=== PATIENT | female | born 1980 | race Caucasian/White ===

== ENCOUNTER 2016-09-05 14:54 | Emergency (ER) | payer OTHER ==
[~2016-09-05] VITALS: Ht 167.6 cm; Wt 62.0 kg
[~2016-09-05 14:54] MED LIST: ALBU1AER9 INH; ASCO10003 PO; CALC600T9 PO; ESCI10TA17 PO; GLUC10007 PO; MISCCAP80 PO; MLXESC PO; MULT-506 PO; SUMA100T16 PO; SYN50 PO
[2016-09-05 14:58] VITALS: Ht 167.6 cm; Wt 62.0 kg
[2016-09-05] MEDS ORDERED: MoRPHine SULFATE 10 MG/ML CARP/VIAL IV STA (15:19)
[2016-09-05] MEDS ORDERED: ONDANSETRON INJ 2 MG/ML 2 ML VIAL IV STA (15:19)
[2016-09-05] MEDS ORDERED: SODIUM CHLORIDE 0.9% 1000ML 1,000 ML IV STA (15:19)
[2016-09-05 15:58] LABS: BASO % 0.3 %; BASO ABS # 0.02 K/uL (0-0.2); COMPLETE YES; EOS % 7.9 %; HEMATOCRIT 38.6 % (37-47); IG% 0.2 %; LYMPH % 28.5 %; LYMPH ABS # 1.81 K/uL (1.2-3.4); MEAN CELL VOLUME 86.2 fL (80-100); MEAN CORPUSCULAR HEMOGLOBIN 30.4 pg (25-34); MEAN CORPUSCULAR HGB CONC 35.2 g/dl (32-36); MEAN PLATELET VOLUME 10.9 fL (7.4-10.4); MONO % 10.8 %; NEUT % 52.3 %; PLATELET COUNT 212 K/uL (130-400); RED BLOOD COUNT 4.48 M/uL (4.2-5.4); WHITE BLOOD COUNT 6.36 K/uL (4.8-10.8)
--- NOTE | 2016-09-05 16:07 | DIAGNOSTIC IMAGING REPORT ---
ABDOMEN AND PELVIS CT WITHOUT CONTRAST CT DOSE: 297.71 mGy.cm HISTORY: Flank pain r flank pain. Previous total his, tej, appy TECHNIQUE: Multiaxial CT images of the abdomen and pelvis were performed without contrast. COMPARISON STUDY: 10/01/2015 FINDINGS: Lung bases are clear. Operative findings of prior cholecystectomy as well as appendectomy. Slight pancreatic fullness. Correlation with pancreatic enzymes status is suggested. 3 mm nonobstructing calcification central left kidney. Bladder is midline. There is no significant free fluid within the cul-de-sac. There is a moderate amount of fecal material throughout colon. Bowel pattern is considered nonobstructive. IMPRESSION: 1. Operative findings consistent with prior appendectomy and cholecystectomy. 2. Nonobstructing 3 mm mid pole left renal calcification. 3. Nonobstructive bowel pattern. 4. Slight fullness of the pancreas. This may simply be artifactual due to the unenhanced nature the examination, although correlation with pancreatic enzyme status is recommended to exclude any possibility of a low-grade pancreatitis Electronically signed by: Ganesh Chua M.D. 09/05/2016 4:05 PM
[2016-09-05 16:18] LABS: ALT/SGPT 23 U/L (12-78); BLOOD UREA NITROGEN 16 mg/dl (7-18); BUN/CREATININE RATIO 14.5 (10-20); CALCIUM 9.3 mg/dl (8.5-10.1); CARBON DIOXIDE 25 mmol/L (21-32); CHLORIDE 107 mmol/L (98-107); GLUCOSE 108 mg/dl (70-99); SODIUM 143 mmol/L (136-145)
[2016-09-05 16:19] LABS: URINE APPEARANCE CLEAR (CLEAR); URINE BILIRUBIN NEG (NEG); URINE COLOR YELLOW; URINE EPITHELIAL CELL AUTO 0-5 /lpf (0-5); URINE NITRITE NEG (NEG); URINE SPECIFIC GRAVITY 1.002 (1.000-1.030); UROBILINOGEN NEG (NEG); ZZUR CULT IF INDIC CLEAN CATCH NO
[2016-09-05 16:21] LABS: ALKALINE PHOSPHATASE 74 U/L (45-117); AST/SGOT 26 U/L (15-37)
[2016-09-05] MEDS ORDERED: ADVIN50/60 INH (16:24)
[2016-09-05 16:25] LABS: MANUAL MICROSCOPIC REQUIRED? NO; REVIEW REQ? NO
[2016-09-05] MEDS ORDERED: POTASSIUM CHLORIDE 10 MEQ TABCR PO STA (17:09)
[2016-09-05] MEDS ORDERED: OXYC1TAB3 PO (17:12)
[2016-09-05 17:34] VITALS: BP 93/62; PULSE 82; TEMP 36.6; O2SAT 95
--- NOTE | 2016-09-05 19:00 | EMERGENCY ROOM VISIT NOTE ---
History Report prepared by Alesia: Adele Ingram Under the Supervision of: Dr. Huey Daniels D.O. First contact with patient: 15:12 Chief Complaint: FLANK PAIN Stated Complaint: RIGHT SIDE PAIN History of Present Illness The patient is a 35 year old female who presents to the Emergency Room with complaints of constant right lateral abdomen pain that started 30-45 minutes [employer]. The pain is worse with walking and putting her knees up. She denies pain or burning with urination and hematuria. Her last bowel movement was yesterday and she states that it was normal. She has a history of pancreatitis but states that the pain she is experiencing now is not similar to that pain. She saw her PCP recently and her pancreatic lab numbers were slightly elevated but repeat blood work a few days later showed they were just below the recommended limit. The patient has a history of complete hysterectomy, appendectomy, and cholecystectomy. She denies any other abdominal surgeries. The patient does not have any history of kidney stones. Source of History: patient Onset: 30-45 minutes [employer] Position: abdomen (right lateral) Timing: constant Modifying Factors (Worsening): other (walking, putting her knees up) Associated Symptoms: No urinary symptoms (pain or burning, hematuria) Review of Systems See HPI for pertinent positives & negatives. A total of 10 systems reviewed and were otherwise negative. Past Medical & Surgical Surgical Problems: (1) History of appendectomy (2) History of cholecystectomy (3) History of hysterectomy Social History Smoking Status: Never Smoker Alcohol Use: occasionally Drug Use: none Marital Status: Occupation Status: employed Current/Historical Medications Scheduled Escitalopram (Lexapro), 10 MG PO DAILY Fluticasone Prop/Salmeterol (Advair Diskus 500/50 60 Dose), 1 PUFF INH BID Levothyroxine Sodium (Synthroid), 50 MCG PO DAILY Scheduled PRN Albuterol (Proair Hfa), 2 PUFFS INH Q4H PRN for WHEEZING,SOB,PRIOR TO EXERCISE Oxycodone Immediate Rel Tab (Roxicodone Ir), 5 MG PO Q4H PRN for Severe Pain Sumatriptan Succinate (Imitrex), 100 MG PO UD PRN for Migraine Allergies Coded Allergies: Gluten (Unverified Allergy, Intermediate, food intolerance, 09/05/16) Hydromorphone (Verified Allergy, Intermediate, hallucinations, 09/05/16) Physical Exam Vital Signs Date Time Temp Pulse Resp B/P Pulse Ox O2 Delivery O2 Flow Rate FiO2 09/05/16 17:34 36.6 82 18 93/62 95 09/05/16 16:00 84 18 93/62 94 Room Air 09/05/16 14:58 36.6 113 20 110/69 100 Room Air Physical Exam GENERAL: alert, uncomfortable appearing, shaking and holding right side, well nourished, no distress, non-toxic EYE EXAM: normal conjunctiva OROPHARYNX: no exudate, no erythema, lips, buccal mucosa, and tongue normal and mucous membranes are moist NECK: supple, no nuchal rigidity, no adenopathy, non-tender LUNGS: Clear to auscultation. Normal chest wall mechanics HEART: no murmurs, S1 normal and S2 normal ABDOMEN: abdomen soft, reproducible tenderness to right flank, normo-active bowel sounds, no masses, no rebound or guarding. BACK: Back is symmetrical on inspection and there is no deformity, no midline tenderness, no CVA tenderness. SKIN: no rashes and no bruising UPPER EXTREMITIES: upper extremities are grossly normal. LOWER EXTREMITIES: No pitting edema. NEURO EXAM: Normal sensorium, cranial nerves II-XII grossly intact, normal speech, no gross weakness of arms, no gross weakness of legs. Medical Decision & Procedures ER Provider Diagnostic Interpretation: CT results have been interpreted by the radiologist and reviewed by me. ABDOMEN AND PELVIS CT WITHOUT CONTRAST CT DOSE: 297.71 mGy.cm HISTORY: Flank pain r flank pain. Previous total his, tej, appy TECHNIQUE: Multiaxial CT images of the abdomen and pelvis were performed without contrast. COMPARISON STUDY: 10/01/2015 FINDINGS: Lung bases are clear. Operative findings of prior cholecystectomy as well as appendectomy. Slight pancreatic fullness. Correlation with pancreatic enzymes status is suggested. 3 mm nonobstructing calcification central left kidney. Bladder is midline. There is no significant free fluid within the cul-de-sac. There is a moderate amount of fecal material throughout colon. Bowel pattern is considered nonobstructive. IMPRESSION: 1. Operative findings consistent with prior appendectomy and cholecystectomy. 2. Nonobstructing 3 mm mid pole left renal calcification. 3. Nonobstructive bowel pattern. 4. Slight fullness of the pancreas. This may simply be artifactual due to the unenhanced nature the examination, although correlation with pancreatic enzyme status is recommended to exclude any possibility of a low-grade pancreatitis Electronically signed by: Ganesh Chua M.D. 09/05/2016 4:05 PM Laboratory Results 09/05/16 15:35 Red Blood Count 4.48, Mean Corpuscular Volume 86.2, Mean Corpuscular Hemoglobin 30.4, Mean Corpuscular Hemoglobin Concent 35.2, Mean Platelet Volume 10.9, Neutrophils (%) (Auto) 52.3, Lymphocytes (%) (Auto) 28.5, Monocytes (%) (Auto) 10.8, Eosinophils (%) (Auto) 7.9, Basophils (%) (Auto) 0.3, Neutrophils # (Auto ) 3.33, Lymphocytes # (Auto) 1.81, Monocytes # (Auto) 0.69, Eosinophils # (Auto ) 0.50, Basophils # (Auto) 0.02 09/05/16 15:35 Test 09/05/16 15:35 White Blood Count 6.36 K/uL (4.8-10.8) Red Blood Count 4.48 M/uL (4.2-5.4) Hemoglobin 13.6 g/dL (12.0-16.0) Hematocrit 38.6 % (37-47) Mean Corpuscular Volume 86.2 fL (80-100) Mean Corpuscular Hemoglobin 30.4 pg (25-34) Mean Corpuscular Hemoglobin Concent 35.2 g/dl (32-36) Platelet Count 212 K/uL (130-400) Mean Platelet Volume 10.9 fL (7.4-10.4) Neutrophils (%) (Auto) 52.3 % Lymphocytes (%) (Auto) 28.5 % Monocytes (%) (Auto) 10.8 % Eosinophils (%) (Auto) 7.9 % Basophils (%) (Auto) 0.3 % Neutrophils # (Auto) 3.33 K/uL (1.4-6.5) Lymphocytes # (Auto) 1.81 K/uL (1.2-3.4) Monocytes # (Auto) 0.69 K/uL (0.11-0.59) Eosinophils # (Auto) 0.50 K/uL (0-0.5) Basophils # (Auto) 0.02 K/uL (0-0.2) RDW Standard Deviation 41.4 fL (36.4-46.3) RDW Coefficient of Variation 13.2 % (11.5-14.5) Immature Granulocyte % (Auto) 0.2 % Immature Granulocyte # (Auto) 0.01 K/uL (0.00-0.02) Urine Color YELLOW Urine Appearance CLEAR (CLEAR) Urine pH 6.0 (4.5-7.5) Urine Specific [place] 1.002 (1.000-1.030) Urine Protein NEG (NEG) Urine Glucose (UA) NEG (NEG) Urine Ketones NEG (NEG) Urine Occult Blood NEG (NEG) Urine Nitrite NEG (NEG) Urine Bilirubin NEG (NEG) Urine Urobilinogen NEG (NEG) Urine Leukocyte Esterase NEG (NEG) Urine WBC (Auto) 0 /hpf (0-5) Urine RBC (Auto) 0-4 /hpf (0-4) Urine Hyaline Casts (Auto) 0 /lpf (0-5) Urine Epithelial Cells (Auto) 0-5 /lpf (0-5) Urine Bacteria (Auto) NEG (NEG) Urine Test NEG (NEG) Anion Gap 11.0 mmol/L (3-11) Est Creatinine Clear Calc Drug Dose 66.1 ml/min Estimated GFR () 74.8 Estimated GFR (Non- 64.5 BUN/Creatinine Ratio 14.5 (10-20) Calcium Level 9.3 mg/dl (8.5-10.1) Total Bilirubin 0.3 mg/dl (0.2-1) Direct Bilirubin < 0.1 mg/dl (0-0.2) Aspartate Amino Transf (AST/SGOT) 26 U/L (15-37) Alanine Aminotransferase (ALT/SGPT) 23 U/L (12-78) Alkaline Phosphatase 74 U/L (45-117) Total Protein 7.5 gm/dl (6.4-8.2) Albumin 4.1 gm/dl (3.4-5.0) Lipase 325 U/L (73-393) Laboratory results per my review. Medications Administered Medications (Trade) Dose Ordered Sig/Waldo Route Start Time Stop Time Status Last Admin Dose Admin Morphine Sulfate (MoRPHine SULFATE INJ) 6 mg NOW STAT IV 09/05/16 15:19 09/05/16 15:20 DC 09/05/16 15:39 6 MG Ondansetron HCl 4 mg 4 mg NOW STAT IV 09/05/16 15:19 09/05/16 15:20 DC 09/05/16 15:39 4 MG Sodium Chloride (Nss 1000ml) 1,000 ml @ 999 mls/hr Q1H1M STAT IV 09/05/16 15:19 09/05/16 16:19 DC 09/05/16 15:39 999 MLS/HR Potassium Chloride (Klor-Con M10) 40 meq NOW STAT PO 09/05/16 17:09 09/05/16 17:10 DC 09/05/16 17:25 40 MEQ ED Course ED COURSE: Vital signs were reviewed and showed tachycardia The patients medical record was reviewed The above diagnostic studies were performed and reviewed. ED treatments and interventions as stated above. 1513: The patient was evaluated in room A6. A complete history and physical examination was performed. 1519: Ordered Sodium Chloride 1000 ml @ 999 mls/hr IV, Zofran 4 mg IV, Morphine Sulfate 6 mg IV 1552: I went to reassess the patient but she was at CT. 1658: Upon reevaluation, the patient is doing well.I discussed my findings with the patient and she understands and agrees with the treatment plan. Based on the patients age, coexisting illnesses, exam and lab findings the decision to treat as an outpatient was made. The patient remained stable while under my care. The patient appeared well at the time of discharge. 1709: Ordered Potassium Chloride 40 meq PO Medical Decision Differential diagnoses includes but is not limited to gastritis, peptic ulcer disease, GERD, gallbladder disease, pancreatitis, small bowel obstruction, acute coronary syndrome, pericarditis, ischemic bowel, irritable bowel disease, irritable bowel syndrome, appendicitis, diverticulitis, malignancy, hernia, urinary tract infection, torsion, /ectopic , perforation, trauma, infectious. Patient is a 35 old female who presents the ER for right flank pain. Severe stabbing pain associated with nausea. It is radiating into her right groin. Patient notes that came on suddenly about 30 minutes ago and has been very severe. On exam she does have reproducible tenderness. Previous cholecystectomy, appendectomy and complete hysterectomy. Normal bowel movement was yesterday. No urinary symptoms. She is no respiratory complaints or chest pain. Labs show no significant leukocytosis or anemia. BMP shows a mild hypokalemia at 3.0. LFTs along with bilirubin was unremarkable. UA was negative. was negative. CT noncontrast was performed as I favor this is likely a stone that was negative. This could have been a recently passed stone. It did show some fullness of the pancreas but a normal lipase. It would be atypical for the pain to be in the right flank. I question if this is muscle skeletal the pain is completely resolved. This does not involve the lungs as it is clearly the abdomen/flank and does not vary with respirations change with breathing. Patient was discharged and OxyIR instructed to follow up with her PCP tomorrow morning for any worsening of her symptoms. Uncertain at this time clear origin of the pain. Discussed with Pt concerning signs and symptoms to watch out for. Pt was instructed to follow up with their PCP and discussed with the patient their option to return to the ED at anytime for persistent or worsening symptoms. The appropriate anticipatory guidance and out- patient management, including indications for return to the emergency department , were explained at length to the patient and understood. Impression Primary Impression: Right flank pain Additional Impression: Hypokalemia Scribe Attestation The scribe's documentation has been prepared under my direction and personally reviewed by me in its entirety. I confirm that the note above accurately reflects all work, treatment, procedures, and medical decision making performed by me. Departure Information Dispostion Home / Self-Care Prescriptions Oxycodone Immediate Rel Tab (ROXICODONE IR) 5 Mg Tab 5 MG PO Q4H Y for Severe Pain, #20 TAB Prov: Huey Daniels, DO 09/05/16 Referrals Freedom Pérez M.D.([facility]) (PCP) Forms HOME CARE DOCUMENTATION FORM, IMPORTANT VISIT INFORMATION Patient Instructions A Signature Page, [facility] Additional Instructions Please follow up with your primary care doctor with in the next 24 hours. Any worsening of your symptoms, please return to the ED immediately. This includes fevers greater than 100.4, persistent nausea vomiting, passing out, worsening pain, or any other concerning signs or symptoms from your standpoint. You were given medications during this visit that will inhibit your ability to drive, operate machinery and work. Please do NOT drive, operate machinery or work for the next 12hrs. You were also given a prescription for a narcotic. While taking this medication you should also not drive, operate machinery and or work.
[2016-09-08] MEDS ORDERED: LCTL45 PO (17:39)
[2016-09-08] MEDS ORDERED: BNT10 PO (17:39)
[2016-09-08] MEDS ORDERED: ULT50X PO (17:39)
[2016-09-08] MEDS ORDERED: SENN8.6T7 PO (17:39)
[2016-09-08] MEDS ORDERED: AMOX1TAB43 PO (17:39)
[2016-09-08] MEDS ORDERED: METO-157 PO (17:39)
[2016-09-08] MEDS ORDERED: ONDA4TAB65 PO (17:53)
== END 2016-09-05 17:33 | disposition home or self-care (01) ==
LOC: C.EDB 14:56 → C.EDA 17:33
DX: R10.9 Unspecified abdominal pain (principal); E87.6 Hypokalemia; Z90.710 Acquired absence of both cervix and uterus; Z90.49 Acquired absence of other specified parts of digestive tract

== ENCOUNTER 2016-09-05 19:28 | Inpatient (IN) | payer OTHER ==
[~2016-09-05] VITALS: Ht 170.2 cm; Wt 64.5 kg
[~2016-09-05 19:28] MED LIST changes: +ADVIN50/60 INH; +OXYC1TAB3 PO
[2016-09-05] MEDS ORDERED: SODIUM CHLORIDE 0.9% 1000ML 1,000 ML IV STA (21:06)
[2016-09-05] MEDS ORDERED: MoRPHine SULFATE 4 MG/ML 1 ML CARP\\VIAL IV STA (21:06)
[2016-09-05] MEDS ORDERED: ONDANSETRON INJ 2 MG/ML 2 ML VIAL IV STA (21:06)
[2016-09-05] MEDS ORDERED: SODIUM CHLORIDE 0.9% 500ML 500 ML IV STA (21:06)
[2016-09-05 21:30] LABS: BASO % 0.3 %; BASO ABS # 0.02 K/uL (0-0.2); COMPLETE YES; EOS % 8.6 %; HEMATOCRIT 38.7 % (37-47); IG% 0.1 %; LYMPH ABS # 1.86 K/uL (1.2-3.4); MEAN CORPUSCULAR HEMOGLOBIN 29.9 pg (25-34); MEAN CORPUSCULAR HGB CONC 34.4 g/dl (32-36); MEAN PLATELET VOLUME 10.6 fL (7.4-10.4); MONO % 9.7 %; NEUT % 54.3 %; PLATELET COUNT 205 K/uL (130-400); RED BLOOD COUNT 4.45 M/uL (4.2-5.4); WHITE BLOOD COUNT 6.88 K/uL (4.8-10.8)
[2016-09-05] MEDS ORDERED: POTASSIUM CHLORIDE 10 MEQ / 100ML WTR IV STA (21:30)
--- NOTE | 2016-09-05 21:35 | EMERGENCY ROOM VISIT NOTE ---
History Report prepared by Alesia: Rachna Yeung Under the Supervision of: Dr. Marie Gonzales M.D. First contact with patient: 21:05 Chief Complaint: ABDOMINAL PAIN Stated Complaint: ABD PAIN, JUST HERE EARLIER History of Present Illness The patient is a 35 year old female who presents to the Emergency Room with complaints of intermittent abdominal pain beginning earlier today. She left work today because of severe abdominal pain and came to the ED for evaluation. She was feeling better after receiving pain medication and she was discharged home. She had a CT scan at that time. While she was at home she started to experience severe pain again that she rates as a 10/10. She became nauseated but denies any LOC. She has a history of pancreatitis and states that this feels like her previous pancreatitis attacks. The patient rates her current pain as a 4/10 in severity. She denies chance of and fever. She notes that she has had some upper respiratory symptoms for the past few days including shortness of breath with exertion. She has been using Advair and an albuterol inhaler. Source of History: patient Onset: earlier today Position: abdomen Symptom Intensity: 4/10 Timing: intermittent Modifying Factors (Worsening): exertion Modifying Factors (Relieving): narcotics Associated Symptoms: + SOB, + nausea, No LOC, No fevers Review of Systems See HPI for pertinent positives & negatives. A total of 10 systems reviewed and were otherwise negative. Past Medical & Surgical Medical Problems: (1) Calcific shoulder tendinitis (2) Cellulitis (3) Right shoulder pain Surgical Problems: (1) History of appendectomy (2) History of cholecystectomy (3) History of hysterectomy Family History No pertinent history stated. Social History Smoking Status: Never Smoker Alcohol Use: occasionally Drug Use: none Marital Status: Housing Status: lives with significant other Occupation Status: employed Current/Historical Medications Scheduled Escitalopram (Lexapro), 10 MG PO DAILY Fluticasone Prop/Salmeterol (Advair Diskus 500/50 60 Dose), 1 PUFF INH BID Levothyroxine Sodium (Synthroid), 50 MCG PO DAILY Scheduled PRN Albuterol (Proair Hfa), 2 PUFFS INH Q4H PRN for WHEEZING,SOB,PRIOR TO EXERCISE Oxycodone Immediate Rel Tab (Roxicodone Ir), 5 MG PO Q4H PRN for Severe Pain Sumatriptan Succinate (Imitrex), 100 MG PO UD PRN for Migraine Allergies Coded Allergies: Gluten (Unverified Allergy, Intermediate, food intolerance, 09/05/16) Hydromorphone (Verified Allergy, Intermediate, hallucinations, 09/05/16) Physical Exam Vital Signs Date Time Temp Pulse Resp B/P Pulse Ox O2 Delivery O2 Flow Rate FiO2 09/05/16 23:14 85 17 107/73 100 Room Air 09/05/16 22:10 73 09/05/16 21:27 75 20 103/71 99 Room Air 09/05/16 19:59 36.7 74 18 99/69 98 Room Air Physical Exam Vital signs reviewed. General: Well-appearing 35 year old female, in no significant distress. HEENT: No scleral icterus, PERRLA, neck supple. Atraumatic. Cardiovascular: Regular rate and rhythm, no extra sounds. Pulmonary: Clear to auscultation bilaterally, normal work of breathing. Abdomen: Soft, tender to palpation in the epigastric region, mild guarding, nondistended, positive bowel sounds. Musculoskeletal: Atraumatic, no peripheral edema. Neurologic: Patient awake alert and oriented x 3, full strength in all 4 extremities. Cranial nerves 2 through 12 grossly intact. Skin: Warm, dry, no rash Medical Decision & Procedures Laboratory Results Test 09/05/16 21:15 09/05/16 21:20 Immature Granulocyte % (Auto) 0.1 % White Blood Count 6.88 K/uL (4.8-10.8) Red Blood Count 4.45 M/uL (4.2-5.4) Hemoglobin 13.3 g/dL (12.0-16.0) Hematocrit 38.7 % (37-47) Mean Corpuscular Volume 87.0 fL (80-100) Mean Corpuscular Hemoglobin 29.9 pg (25-34) Mean Corpuscular Hemoglobin Concent 34.4 g/dl (32-36) Platelet Count 205 K/uL (130-400) Mean Platelet Volume 10.6 fL (7.4-10.4) Neutrophils (%) (Auto) 54.3 % Lymphocytes (%) (Auto) 27.0 % Monocytes (%) (Auto) 9.7 % Eosinophils (%) (Auto) 8.6 % Basophils (%) (Auto) 0.3 % Neutrophils # (Auto) 3.73 K/uL (1.4-6.5) Lymphocytes # (Auto) 1.86 K/uL (1.2-3.4) Monocytes # (Auto) 0.67 K/uL (0.11-0.59) Eosinophils # (Auto) 0.59 K/uL (0-0.5) Basophils # (Auto) 0.02 K/uL (0-0.2) Immature Granulocyte # (Auto) 0.01 K/uL (0.00-0.02) Prothrombin Time 10.9 SECONDS (9.0-12.0) Prothromb Time International Ratio 1.0 (0.9-1.1) Total Bilirubin 0.3 mg/dl (0.2-1) Direct Bilirubin 0.1 mg/dl (0-0.2) Aspartate Amino Transf (AST/SGOT) 32 U/L (15-37) Alanine Aminotransferase (ALT/SGPT) 27 U/L (12-78) Alkaline Phosphatase 71 U/L (45-117) Total Protein 7.3 gm/dl (6.4-8.2) Albumin 4.0 gm/dl (3.4-5.0) Urine Color YELLOW Urine Appearance CLEAR (CLEAR) Urine pH 5.0 (4.5-7.5) Urine Specific [place] 1.010 (1.000-1.030) Urine Protein NEG (NEG) Urine Glucose (UA) NEG (NEG) Urine Ketones NEG (NEG) Urine Occult Blood NEG (NEG) Urine Nitrite NEG (NEG) Urine Bilirubin NEG (NEG) Urine Urobilinogen NEG (NEG) Urine Leukocyte Esterase NEG (NEG) Laboratory results per my review. Medications Administered Medications (Trade) Dose Ordered Sig/Waldo Route Start Time Stop Time Status Last Admin Dose Admin Sodium Chloride 500 ml @ 999 mls/hr Q31M STAT IV 09/05/16 21:06 09/05/16 21:36 DC 09/05/16 21:25 999 MLS/HR Sodium Chloride (Nss 1000ml) 1,000 ml @ 125 mls/hr Q8H STAT IV 09/05/16 21:06 09/06/16 02:26 DC 09/05/16 21:24 125 MLS/HR Morphine Sulfate (MoRPHine SULFATE INJ) 4 mg NOW STAT IV 09/05/16 21:06 09/05/16 21:07 DC 09/05/16 21:24 4 MG Ondansetron HCl (Zofran Inj) 4 mg NOW STAT IV 09/05/16 21:06 09/05/16 21:07 DC 09/05/16 21:25 4 MG Potassium Chloride (Kcl 10 Meq / Wtr) 20 meq NOW STAT IV 09/05/16 21:30 09/05/16 21:31 DC 09/05/16 21:49 20 MEQ Morphine Sulfate (MoRPHine SULFATE INJ) 4 mg Q1H PRN IV 09/05/16 23:15 09/06/16 02:26 DC 09/05/16 23:16 4 MG ED Course 2113: Past medical records reviewed. The patient was evaluated in room B9. A complete history and physical examination was performed. 2105: Zofran 4 mg IV, Morphine sulfate 4 mg IV, NSS 1000 ml @ 125 mls/hr IV , NSS 500 ml @ 999 mls/hr IV 2129: Potassium Chloride 20 meq IV 2210: I spoke with Dr. Gaspar. We discussed the patients results and treatment plan. The patient will be evaluated by the [facility] for further management. 2214: I reassessed the patient at this time. She is resting comfortably. I discussed the results and treatment plan with the patient. I answered all pertaining questions that she had. She expressed understanding and verbalized agreement. Medical Decision Differential diagnosis: Etiologies such as appendicitis, diverticulitis, PUD, biliary pathology, UTI, pancreatitis, obstruction, mesenteric ischemia, aortic pathology, infections, inflammatory bowel disease, renal colic, as well as others were entertained. This pt was evaluated and appeared to be in no distress. IV access was obtained and lab work was drawn. PT was placed on the electronic device monitor. She was hydrated with NSS, given IV morphine for pain control. CT images were reviewed from earlier in the day. Lab work reveals an elevated lipase of 2400, significant increase from several hours ago. Case was d/w the hospitalist who will evaluate for further management. Consults Time Called: 2208 Consulting Physician: Dr. Gaspar Returned Call: [address] Gaspar. We discussed the patients results and treatment plan. The patient will be evaluated by the [facility] for further management. Impression Primary Impression: Pancreatitis Scribe Attestation The scribe's documentation has been prepared under my direction and personally reviewed by me in its entirety. I confirm that the note above accurately reflects all work, treatment, procedures, and medical decision making performed by me. Departure Information Dispostion Being Evaluated By Hospitalist Freedom Arellano M.D.([facility]) (PCP)
[2016-09-05 21:40] LABS: URINE APPEARANCE CLEAR (CLEAR); URINE BILIRUBIN NEG (NEG); URINE COLOR YELLOW; URINE NITRITE NEG (NEG); UROBILINOGEN NEG (NEG); ZZUR CULT IF INDIC CLEAN CATCH NO
[2016-09-05 21:42] LABS: MANUAL MICROSCOPIC REQUIRED? NO; REVIEW REQ? NO
[2016-09-05 21:59] LABS: BUN/CREATININE RATIO 12.8 (10-20); CALCIUM 8.5 mg/dl (8.5-10.1); CREATININE 0.99 mg/dl (0.60-1.20); MAGNESIUM 1.9 mg/dl (1.8-2.4); POTASSIUM 3.8 mmol/L (3.5-5.1)
[2016-09-05] MEDS ORDERED: MoRPHine SULFATE 4 MG/ML 1 ML CARP\\VIAL IV PRN (23:15)
[2016-09-05] MEDS ORDERED: ALBUTEROL HFA 8 GM INHALER INH PRN (23:30)
[2016-09-05] MEDS ORDERED: ONDANSETRON INJ 2 MG/ML 2 ML VIAL IV PRN (23:30)
--- NOTE | 2016-09-06 00:25 | History and Physical ---
History & Physical Date & Time of Service: Sep 06, 2016 at 00:17 Chief Complaint: Abd Pain, Just Here Earlier Primary Care Physician: Freedom Pérez M.D.(JANNA) History of Present Illness Source: patient, family, clinic records, hospital records This is a 35 year old female with PMH of ovarian cancer, in remission since 2013 , recurrent idiopathic pancreatitis, depression, celiac disease presents with epigastric tenderness - she presented to the ER twice today (09/05/16) - initially she had some right sided abdominal/flank tenderness and had a CT done showing some pancreas fullness. At that time, she had a normal level of lipase - she was sent home, but returned with worsening epigastric pain; found to have lipase of > 2000. She has had this in the past - uncomplicated idiopathic pancreatitis. Has had her gallbladder removed a few years prior. No recurrence of her ovarian cancer and she follows with oncology every 6 months. Currently pain in the epigastric region is similar to her previous pancreatitis episodes. No other issues to note. Past Medical/Surgical History Medical Problems: (1) Calcific shoulder tendinitis Status: Resolved (2) Cellulitis Status: Resolved (3) Right shoulder pain Status: Resolved Social History Smoking Status: Never Smoker Drug Use: none Marital Status: Housing status: lives with family Occupational Status: employed Immunizations History of Influenza Vaccine: No History of Tetanus Vaccine?: Unknown History of Pneumococcal: No History of Hepatitis B Vaccine: Unknown Allergies Coded Allergies: Gluten (Unverified Allergy, Intermediate, food intolerance, 09/05/16) Hydromorphone (Verified Allergy, Intermediate, hallucinations, 09/05/16) Home Medications Scheduled Escitalopram (Lexapro), 10 MG PO DAILY Fluticasone Prop/Salmeterol (Advair Diskus 500/50 60 Dose), 1 PUFF INH BID Levothyroxine Sodium (Synthroid), 50 MCG PO DAILY Scheduled PRN Albuterol (Proair Hfa), 2 PUFFS INH Q4H PRN for WHEEZING,SOB,PRIOR TO EXERCISE Oxycodone Immediate Rel Tab (Roxicodone Ir), 5 MG PO Q4H PRN for Severe Pain Sumatriptan Succinate (Imitrex), 100 MG PO UD PRN for Migraine Review of Systems Constitutional: No chills, No fever, No weakness Respiratory: No cough, No dyspnea on exertion, No shortness of breath, No sputum Cardiovascular: No chest pain, No edema, No palpitations Abdomen: + nausea, + pain, No GI bleeding, No constipation, No diarrhea, No vomiting Genitourinary - Female: No dysuria, No hematuria, No urinary frequency, No urinary incontinence, No urinary retention, No urinary urgency Neurologic: No numbness/tingling Psychiatric: + depression symptoms (controlled with medications) Endocrine: No fatigue Hematologic / Lymphatic: No abnormal bleeding/bruising Integumentary: No rash Allergic / Immunologic: No environmental allergies, No seasonal allergies Physical Exam Vital Signs Date Time Temp Pulse Resp B/P Pulse Ox O2 Delivery O2 Flow Rate FiO2 09/05/16 23:14 85 17 107/73 100 Room Air 09/05/16 22:10 73 09/05/16 21:27 75 20 103/71 99 Room Air 09/05/16 19:59 36.7 74 18 99/69 98 Room Air General Appearance: + mild distress (secondary to pain) Head: normocephalic, atraumatic Eyes: normal inspection ENT: hearing grossly normal Respiratory/Chest: lungs clear, normal breath sounds, no respiratory distress, no accessory muscle use Cardiovascular: regular rate, rhythm, no edema, no murmur Abdomen/GI: normal bowel sounds, soft, + tenderness (worse epigastric tenderness, though tenderness throughout exam), + pertinent finding ( nondistended) Extremities/Musculoskelatal: normal capillary refill, no pedal edema Neurologic/Psych: no motor/sensory deficits, alert, normal mood/affect Skin: normal color Lymphatic: no adenopathy Diagnostics Laboratory Results Results Past 24 Hours Test 09/05/16 21:15 09/05/16 21:20 Range/Units White Blood Count 6.88 4.8-10.8 K/uL Red Blood Count 4.45 4.2-5.4 M/uL Hemoglobin 13.3 12.0-16.0 g/dL Hematocrit 38.7 37-47 % Mean Corpuscular Volume 87.0 80-100 fL Mean Corpuscular Hemoglobin 29.9 25-34 pg Mean Corpuscular Hemoglobin Concent 34.4 32-36 g/dl Platelet Count 205 130-400 K/uL Mean Platelet Volume 10.6 7.4-10.4 fL Neutrophils (%) (Auto) 54.3 % Lymphocytes (%) (Auto) 27.0 % Monocytes (%) (Auto) 9.7 % Eosinophils (%) (Auto) 8.6 % Basophils (%) (Auto) 0.3 % Neutrophils # (Auto) 3.73 1.4-6.5 K/uL Lymphocytes # (Auto) 1.86 1.2-3.4 K/uL Monocytes # (Auto) 0.67 0.11-0.59 K/uL Eosinophils # (Auto) 0.59 0-0.5 K/uL Basophils # (Auto) 0.02 0-0.2 K/uL RDW Standard Deviation 42.7 36.4-46.3 fL RDW Coefficient of Variation 13.3 11.5-14.5 % Immature Granulocyte % (Auto) 0.1 % Immature Granulocyte # (Auto) 0.01 0.00-0.02 K/uL Sodium Level 143 136-145 mmol/L Potassium Level 3.8 3.5-5.1 mmol/L Chloride Level 109 98-107 mmol/L Carbon Dioxide Level 25 21-32 mmol/L Anion Gap 9.0 3-11 mmol/L Blood Urea Nitrogen 13 7-18 mg/dl Creatinine 0.99 0.60-1.20 mg/dl Est Creatinine Clear Calc Drug Dose 76.4 ml/min Estimated GFR () 85.0 Estimated GFR (Non- 73.3 BUN/Creatinine Ratio 12.8 10-20 Random Glucose 99 70-99 mg/dl Calcium Level 8.5 8.5-10.1 mg/dl Magnesium Level 1.9 1.8-2.4 mg/dl Total Bilirubin 0.3 0.2-1 mg/dl Direct Bilirubin 0.1 0-0.2 mg/dl Aspartate Amino Transf (AST/SGOT) 32 15-37 U/L Alanine Aminotransferase (ALT/SGPT) 27 12-78 U/L Alkaline Phosphatase 71 45-117 U/L Total Protein 7.3 6.4-8.2 gm/dl Albumin 4.0 3.4-5.0 gm/dl Lipase 2452 73-393 U/L Urine Color YELLOW Urine Appearance CLEAR CLEAR Urine pH 5.0 4.5-7.5 Urine Specific [place] 1.010 1.000-1.030 Urine Protein NEG NEG Urine Glucose (UA) NEG NEG Urine Ketones NEG NEG Urine Occult Blood NEG NEG Urine Nitrite NEG NEG Urine Bilirubin NEG NEG Urine Urobilinogen NEG NEG Urine Leukocyte Esterase NEG NEG Diagnostic Radiology ABDOMEN AND PELVIS CT WITHOUT CONTRAST CT DOSE: 297.71 mGy.cm HISTORY: Flank pain r flank pain. Previous total his, tej, appy TECHNIQUE: Multiaxial CT images of the abdomen and pelvis were performed without contrast. COMPARISON STUDY: 10/01/2015 FINDINGS: Lung bases are clear. Operative findings of prior cholecystectomy as well as appendectomy. Slight pancreatic fullness. Correlation with pancreatic enzymes status is suggested. 3 mm nonobstructing calcification central left kidney. Bladder is midline. There is no significant free fluid within the cul-de-sac. There is a moderate amount of fecal material throughout colon. Bowel pattern is considered nonobstructive. IMPRESSION: 1. Operative findings consistent with prior appendectomy and cholecystectomy. 2. Nonobstructing 3 mm mid pole left renal calcification. 3. Nonobstructive bowel pattern. 4. Slight fullness of the pancreas. This may simply be artifactual due to the unenhanced nature the examination, although correlation with pancreatic enzyme status is recommended to exclude any possibility of a low-grade pancreatitis Impression Assessment and Plan This is a 35 year old female with PMH of ovarian cancer, in remission since 2013 , recurrent idiopathic pancreatitis, depression, celiac disease presents with epigastric tenderness Acute Recurrent Idiopathic Pancreatitis -->patient has had these symptoms in the past -->lipase > 1999 -->abdominal CT earlier today showed fullness of the pancreas -->will keep NPO -->LR @ 200mL/hr -->morphine PRN -->monitor lipase and electrolytes -->GI consultation Hypothyroidism -->continue synthroid Depression -->controlled with medications; continue home medications DVT ppx -->lovenox FULL CODE d/c home when pain improves and tolerating PO intake VTE Prophylaxis VTE Risk Assessment Done? Y/N: Yes Risk Level: Moderate
[2016-09-06 00:35] VITALS: BP 93/59; PULSE 96; TEMP 36.7; O2SAT 96; Ht 170.2 cm; Wt 64.5 kg
[2016-09-06 01:15] VITALS: BP 93/59; PULSE 96; TEMP 36.7; O2SAT 96
[2016-09-06 02:48] LABS: PROTHROMBIN TIME (PATIENT) 10.9 SECONDS (9.0-12.0)
[2016-09-06] MEDS: LACTATED RINGER'S 1000ML 1,000 ML IV SCH ×5 (02:55→19:02)
[2016-09-06] MEDS ORDERED: NURSING VERBAL MED ORDER ONE ×3 (03:15→21:45)
[2016-09-06] MEDS ORDERED: INFLUENZA ADMINISTRATION CHARGE ONE (06:15)
[2016-09-06] MEDS ORDERED: INFLUENZA VIRUS QUAD VACCINE 0.5 ML SYR IM. ONE (06:15)
[2016-09-06] MEDS: LEVOTHYROXINE 50 MCG TAB PO SCH (06:17)
[2016-09-06] MEDS: ENOXAPARIN 40 MG/0.4 ML SYR SQ SCH (06:18)
[2016-09-06] MEDS: ACETAMINOPHEN 325 MG TAB PO PRN ×2 (06:23→14:05)
[2016-09-06 08:03] LABS: HEMATOCRIT 31.9 % (37-47); MEAN CELL VOLUME 88.4 fL (80-100); MEAN CORPUSCULAR HEMOGLOBIN 29.1 pg (25-34); MEAN CORPUSCULAR HGB CONC 32.9 g/dl (32-36); PLATELET COUNT 162 K/uL (130-400); RED BLOOD COUNT 3.61 M/uL (4.2-5.4); WHITE BLOOD COUNT 4.64 K/uL (4.8-10.8)
[2016-09-06 08:07] VITALS: BP 94/59; PULSE 63; TEMP 36.7; O2SAT 97
[2016-09-06 08:45] LABS: BUN/CREATININE RATIO 8.6 (10-20); CALCIUM 7.8 mg/dl (8.5-10.1); CREATININE 0.85 mg/dl (0.60-1.20); MAGNESIUM 1.8 mg/dl (1.8-2.4)
[2016-09-06] MEDS ORDERED: ESCITALOPRAM OXALATE 10 MG TAB PO SCH (09:00)
[2016-09-06] MEDS: FLUTICASONE/SALMETEROL (ADVAIR) 500/50 INH 14 PUFF INH SCH ×2 (09:08→20:47)
[2016-09-06] MEDS: MoRPHine SULFATE 2 MG/ML CARP IV PRN ×3 (09:08→20:52)
--- NOTE | 2016-09-06 09:17 | Gastrointestinal Consultation ---
Gastrointestinal Consultation Date of Consultation: Sep 06, 2016 Consulting Physician: Dr. Lai Reason for Consultation: acute pancreatitis History of Present Illness Patient is a 35 year old female with past medical history significant for ovarian cancer (remission 2013, total hysterectomy) depression, celiac disease, IBS and recurrent pancreatitis (s/p appendectomy and cholecystectomy in 2011). She presented to the ED yesterday with flank pain and epigastric discomfort. A thorough evaluation was completed in the ED and she was sent home with a normal lipase of 300. A few hours later, she reported 10/10 epigastric pain, nonradiating, sharp and constant and came back the the ED. At this time, her lipase was elevated to >2000 and she was admitted for treatment. She reports associated nausea. She denies any episodes of emesis. Today she states that she feels much better. He abdominal pain is moderately resolved. She denies SOB, chest pain, fever chills. She reports congestion and mild epigastric discomfort. She states she can feel pressure in her stomach. She has not taken any pain medication this morning except for Tylenol, which she requested for a PINON. CT abd on 09/05/16: Lung bases are clear. Operative findings of prior cholecystectomy as well as appendectomy. Slight pancreatic fullness. Correlation with pancreatic enzymes status is suggested. 3 mm nonobstructing calcification central left kidney. Bladder is midline. There is no significant free fluid within the cul-de -sac. There is a moderate amount of fecal material throughout colon. Bowel pattern is considered nonobstructive. Lipase 09/05/16 AM 325 Lipase 09/05/16 HS 2452 Lipase 09/06/16 AM 317 Colonoscopy/EGD in 2011 both unremarkable. Past Medical/Surgical History Medical Problems: (1) Pancreatitis Status: Acute (2) Right flank pain Status: Acute Social History Smoking Status: Never Smoker Alcohol Use: occasionally Drug Use: none Marital Status: Housing Status: lives with significant other Occupation Status: employed Allergies Coded Allergies: Gluten (Unverified Allergy, Intermediate, food intolerance, 09/05/16) Hydromorphone (Verified Allergy, Intermediate, hallucinations, 09/05/16) Current Medications Home Meds and Scripts Medications Dose Route/Sig Max Daily Dose Days Date Category Roxicodone Ir (Oxycodone HCl) 5 Mg Tab 5 Mg PO Q4H PRN 09/05/16 Rx Advair Diskus 500/50 60 Dose (Fluticasone Prop/Salmeterol) 1 Ea Aerp 1 Puff INH BID 09/05/16 Reported Proair Hfa (Albuterol) Aers 2 Puffs INH Q4H PRN 03/11/14 Reported Synthroid (Levothyroxine Sodium) 50 Mcg Tab 50 Mcg PO DAILY 03/11/14 Reported Lexapro (Escitalopram Oxalate) 10 Mg Tab 10 Mg PO DAILY 08/06/13 Reported Imitrex (Sumatriptan Succinate) 100 Mg Tab 100 Mg PO UD PRN 06/11/13 Reported Review of Systems Constitutional: No chills, No fever Respiratory: No cough, No shortness of breath Cardiac: No chest pain Abdomen: + pain, No GI bleeding, No constipation, No diarrhea, No nausea, No vomiting Skin: No rash Physical Exam Date Time Temp Pulse Resp B/P Pulse Ox O2 Delivery O2 Flow Rate FiO2 09/06/16 08:20 Room Air 09/06/16 08:07 36.7 63 16 94/59 97 Room Air 09/06/16 01:15 36.7 96 16 93/59 96 Room Air 09/06/16 00:35 Room Air 09/06/16 00:35 36.7 96 16 93/59 96 Room Air 09/05/16 23:14 85 17 107/73 100 Room Air 09/05/16 22:10 73 09/05/16 21:27 75 20 103/71 99 Room Air 09/05/16 19:59 36.7 74 18 99/69 98 Room Air General Appearance: no apparent distress Eyes: normal inspection, PERRL ENT: hearing grossly normal Neck: supple, no adenopathy Respiratory/Chest: lungs clear, normal breath sounds, no respiratory distress, no accessory muscle use Cardiovascular: regular rate, rhythm, no edema, no gallop, no JVD, no murmur Abdomen: normal bowel sounds, soft, no organomegaly, no pulsatile mass, + tenderness (mild epigastric tenderness with palpation, mild right lower quadrant tenderness) Neurologic/Psych: alert, normal mood/affect, oriented x 3 Skin: normal color, no jaundice, warm/dry Laboratory Results Last 24 Hours Test 09/05/16 21:15 09/05/16 21:20 09/06/16 07:38 White Blood Count 6.88 K/uL 4.64 K/uL Red Blood Count 4.45 M/uL 3.61 M/uL Hemoglobin 13.3 g/dL 10.5 g/dL Hematocrit 38.7 % 31.9 % Mean Corpuscular Volume 87.0 fL 88.4 fL Mean Corpuscular Hemoglobin 29.9 pg 29.1 pg Mean Corpuscular Hemoglobin Concent 34.4 g/dl 32.9 g/dl Platelet Count 205 K/uL 162 K/uL Mean Platelet Volume 10.6 fL 11.0 fL Neutrophils (%) (Auto) 54.3 % Lymphocytes (%) (Auto) 27.0 % Monocytes (%) (Auto) 9.7 % Eosinophils (%) (Auto) 8.6 % Basophils (%) (Auto) 0.3 % Neutrophils # (Auto) 3.73 K/uL Lymphocytes # (Auto) 1.86 K/uL Monocytes # (Auto) 0.67 K/uL Eosinophils # (Auto) 0.59 K/uL Basophils # (Auto) 0.02 K/uL RDW Standard Deviation 42.7 fL 43.6 fL RDW Coefficient of Variation 13.3 % 13.4 % Immature Granulocyte % (Auto) 0.1 % Immature Granulocyte # (Auto) 0.01 K/uL Prothrombin Time 10.9 SECONDS Prothromb Time International Ratio 1.0 Sodium Level 143 mmol/L 144 mmol/L Potassium Level 3.8 mmol/L 4.0 mmol/L Chloride Level 109 mmol/L 113 mmol/L Carbon Dioxide Level 25 mmol/L 23 mmol/L Anion Gap 9.0 mmol/L 8.0 mmol/L Blood Urea Nitrogen 13 mg/dl 7 mg/dl Creatinine 0.99 mg/dl 0.85 mg/dl Est Creatinine Clear Calc Drug Dose 76.4 ml/min 89.0 ml/min Estimated GFR () 85.0 102.2 Estimated GFR (Non- 73.3 88.2 BUN/Creatinine Ratio 12.8 8.6 Random Glucose 99 mg/dl 86 mg/dl Calcium Level 8.5 mg/dl 7.8 mg/dl Magnesium Level 1.9 mg/dl 1.8 mg/dl Total Bilirubin 0.3 mg/dl Direct Bilirubin 0.1 mg/dl Aspartate Amino Transf (AST/SGOT) 32 U/L Alanine Aminotransferase (ALT/SGPT) 27 U/L Alkaline Phosphatase 71 U/L Total Protein 7.3 gm/dl Albumin 4.0 gm/dl Lipase 2452 U/L 317 U/L Urine Color YELLOW Urine Appearance CLEAR Urine pH 5.0 Urine Specific [place] 1.010 Urine Protein NEG Urine Glucose (UA) NEG Urine Ketones NEG Urine Occult Blood NEG Urine Nitrite NEG Urine Bilirubin NEG Urine Urobilinogen NEG Urine Leukocyte Esterase NEG Impression Patient is a [address] imaging suggesting mild pancreatitis, with an initial elevation of lipase >2000, highly suspicious of a recurrent episode of idiopathic pancreatitis. This is her second episode of pancreatitis since she had a cholecystectomy in 2011. Plan NPO until lunch LR 200 ml/hr Zofran PRN nausea Bentyl PRN for abd cramping for IBS CL for lunch Low fat - gluten free diet for dinner if clear liquids were tolerated Reglan 5mg IV TID for abdominal fullness GI will continue to follow. Will suggest appropriate advancement of diet. Attg addendum: I interviewed and examined pt, reviewed chart and labs. Pt with two prior episodes of pancreatitis (w/u = celiac serologies, FRANCISCO, IgG4, trigs, calcium, poor quality MRCP, s/p tej with fairly benign pathology); also h/o ovarian CA, admit with epigastric pain typical for pancreatitis and markedly elevated lipase with nl LFT's. No hemoconcentration, normal VS on presentation. Given fluids overnight. At present, she currently has persistent epigastric bloating after clear liquids, although she has not requested pain meds since the morning. + passing flatus. On exam, she looks comfortable; her mucous membranes are mildly dry. Abd is soft, ND, NT. labs reviewed - she has drop in hgb post admission. When questioned, she reports chronic mild epigastric bloating. Drinks 2 drinks/week. No new meds. A/P: Recurrent acute panc - Fluids x 24 hours, pain control as needed, diet as tolerated. Can be d/c'd once pain free and alla PO. - Etiology of panc unclear - reviwe of CT's in the past show borderline " sausage like" pancreas. Would consider repeating w/u AIP, celiac repeat imaging (MRCP and EUS), also fecal elastase and fecal fat to screen for chronic panc as outpt.
--- NOTE | 2016-09-06 11:08 | Progress Note ---
Medicine Progress Note Date & Time of Visit: Sep 06, 2016 at 11:03. Subjective patient seen resting in bed states her abdominal pain- epigastric, crampy- seemed to have recurred this AM, moderate- associated with mild nausea has mild dyspnea, no wheezing- being treated for "chest cold" with advair, prn albuterol- no cough no fever/chills has mild headache no other symptoms Objective Last 8 Hrs Date Time Temp Pulse Resp B/P Pulse Ox O2 Delivery O2 Flow Rate FiO2 09/06/16 08:20 Room Air 09/06/16 08:07 36.7 63 16 94/59 97 Room Air Physical Exam: General- oriented x 3, not in distress, speaks in sentences with no effort Head- atraumatic Eyes- EOMI, anicteric ENT- oropharynx clear Neck- supple, no JVD Lungs- clear to auscultation b/l, no rales/wheeze Heart- normal rate, regular rhythm; no murmurs Abdomen-non distended, normal bowel sounds, soft, mild epigastric tendernes Extremities- no pretibial edema, no calf tenderness; peripheral pulses intact Neuro- alert, oriented x 3; no gross focal motor/sensory deficits Skin- warm & dry Laboratory Results: Last 24 Hours Test 09/05/16 21:15 09/05/16 21:20 09/06/16 07:38 White Blood Count 6.88 K/uL 4.64 K/uL Red Blood Count 4.45 M/uL 3.61 M/uL Hemoglobin 13.3 g/dL 10.5 g/dL Hematocrit 38.7 % 31.9 % Mean Corpuscular Volume 87.0 fL 88.4 fL Mean Corpuscular Hemoglobin 29.9 pg 29.1 pg Mean Corpuscular Hemoglobin Concent 34.4 g/dl 32.9 g/dl Platelet Count 205 K/uL 162 K/uL Mean Platelet Volume 10.6 fL 11.0 fL Neutrophils (%) (Auto) 54.3 % Lymphocytes (%) (Auto) 27.0 % Monocytes (%) (Auto) 9.7 % Eosinophils (%) (Auto) 8.6 % Basophils (%) (Auto) 0.3 % Neutrophils # (Auto) 3.73 K/uL Lymphocytes # (Auto) 1.86 K/uL Monocytes # (Auto) 0.67 K/uL Eosinophils # (Auto) 0.59 K/uL Basophils # (Auto) 0.02 K/uL RDW Standard Deviation 42.7 fL 43.6 fL RDW Coefficient of Variation 13.3 % 13.4 % Immature Granulocyte % (Auto) 0.1 % Immature Granulocyte # (Auto) 0.01 K/uL Prothrombin Time 10.9 SECONDS Prothromb Time International Ratio 1.0 Sodium Level 143 mmol/L 144 mmol/L Potassium Level 3.8 mmol/L 4.0 mmol/L Chloride Level 109 mmol/L 113 mmol/L Carbon Dioxide Level 25 mmol/L 23 mmol/L Anion Gap 9.0 mmol/L 8.0 mmol/L Blood Urea Nitrogen 13 mg/dl 7 mg/dl Creatinine 0.99 mg/dl 0.85 mg/dl Est Creatinine Clear Calc Drug Dose 76.4 ml/min 89.0 ml/min Estimated GFR () 85.0 102.2 Estimated GFR (Non- 73.3 88.2 BUN/Creatinine Ratio 12.8 8.6 Random Glucose 99 mg/dl 86 mg/dl Calcium Level 8.5 mg/dl 7.8 mg/dl Magnesium Level 1.9 mg/dl 1.8 mg/dl Total Bilirubin 0.3 mg/dl Direct Bilirubin 0.1 mg/dl Aspartate Amino Transf (AST/SGOT) 32 U/L Alanine Aminotransferase (ALT/SGPT) 27 U/L Alkaline Phosphatase 71 U/L Total Protein 7.3 gm/dl Albumin 4.0 gm/dl Lipase 2452 U/L 317 U/L Urine Color YELLOW Urine Appearance CLEAR Urine pH 5.0 Urine Specific [place] 1.010 Urine Protein NEG Urine Glucose (UA) NEG Urine Ketones NEG Urine Occult Blood NEG Urine Nitrite NEG Urine Bilirubin NEG Urine Urobilinogen NEG Urine Leukocyte Esterase NEG Assessment & Plan 35 year old female with history of Pancreatitis, Celiac Disease, Ovarian CA s/p Chemo/Hysterectomy, Asthma, presenting with abdominal pain. Acute Recurrent Idiopathic Pancreatitis -->patient has had these symptoms in the past -->lipase > 1999 -->abdominal CT earlier today showed fullness of the pancreas -- no clear inciting factor -- lipase improved to 300s still has some abdominal pain -- continue LR at 200cc/hr clear liquids for lunch, advance as tolerated PRN Morphine Asthma - PRN albuterol continue Advair Hypothyroidism -->continue synthroid Depression -->controlled with medications; continue home medications DVT ppx -->lovenox FULL CODE d/c home when pain improves and tolerating PO intake Current Inpatient Medications: Current Inpatient Medications Medications (Trade) Dose Ordered Sig/Waldo Route Start Time Stop Time Status Last Admin Dose Admin Enoxaparin Sodium (Lovenox Inj) 40 mg Q24H SQ 09/06/16 06:00 10/06/16 05:59 09/06/16 06:18 40 MG Acetaminophen (Tylenol Tab) 650 mg Q4H PRN PO 09/05/16 23:30 10/05/16 23:29 09/06/16 06:23 650 MG Ondansetron HCl 4 mg 4 mg Q6H PRN IV 09/05/16 23:30 10/05/16 23:29 Lactated Ringer's (Lr 1000ml) 1,000 ml @ 200 mls/hr Q5H IV 09/05/16 23:30 10/05/16 23:29 09/06/16 09:09 200 MLS/HR Morphine Sulfate (MoRPHine SULFATE INJ) 2 mg Q4H PRN IV 09/05/16 23:30 09/19/16 23:29 09/06/16 09:08 2 MG Albuterol (Ventolin Hfa Inhaler) 2 puffs Q4H PRN INH 09/05/16 23:30 10/05/16 23:29 Salmeterol Xinafoate/ Fluticasone (Advair Diskus 500/50 Inh) 1 puff BID INH 09/06/16 09:00 10/06/16 08:59 09/06/16 09:08 1 PUFF Levothyroxine Sodium (Synthroid Tab) 50 mcg DAILYBB PO 09/06/16 06:00 10/06/16 05:59 09/06/16 06:17 50 MCG Escitalopram Oxalate (Lexapro Tab) 10 mg HS PO 09/06/16 21:00 10/06/16 20:59 Dicyclomine HCl (Bentyl Cap) 10 mg TID PRN PO 09/06/16 09:30 10/06/16 09:29
[2016-09-06 16:00] VITALS: BP 102/65; PULSE 66; TEMP 36.7; O2SAT 97
[2016-09-06] MEDS: METOCLOPRAMIDE HCL INJ 5 MG/ML 2 ML VIAL IV SCH (20:48)
[2016-09-06] MEDS: DICYCLOMINE HCL 10 MG CAP PO PRN (20:48)
[2016-09-06] MEDS: ESCITALOPRAM OXALATE 10 MG TAB PO SCH (20:49)
[2016-09-06 23:39] VITALS: BP 94/57; PULSE 71; TEMP 36.6; O2SAT 94
[2016-09-07] MEDS: LACTATED RINGER'S 1000ML 1,000 ML IV SCH ×3 (04:50→09:52)
[2016-09-07] MEDS: LEVOTHYROXINE 50 MCG TAB PO SCH (05:57)
[2016-09-07] MEDS: ENOXAPARIN 40 MG/0.4 ML SYR SQ SCH (05:57)
[2016-09-07] MEDS: ACETAMINOPHEN 325 MG TAB PO PRN (07:38)
[2016-09-07] MEDS: METOCLOPRAMIDE HCL INJ 5 MG/ML 2 ML VIAL IV SCH ×3 (07:39→21:38)
[2016-09-07] MEDS: FLUTICASONE/SALMETEROL (ADVAIR) 500/50 INH 14 PUFF INH SCH ×2 (07:39→21:38)
[2016-09-07 08:07] VITALS: BP 97/62; PULSE 62; TEMP 36.8; O2SAT 96
--- NOTE | 2016-09-07 08:31 | Gastroenterology Progress Note ---
Progress Note Date of Service: Sep 07, 2016 Subjective Pt evaluation today including: conversation w/ patient, physical exam, chart review Patient states that she feels ok. She denies any change in her pain in frequency or quality since yesterday. She states that she requested one dose of pain medication before bed last night for the epigastric discomfort. She denies any nausea, vomiting, black or bloody stools. She states that she has not had a BM since admission and would like a dose of miralax. She states that she ate some of her tray last night, their was mild discomfort but she requested to be served a low fat diet this AM again. Educated patient on bowel rest and told her to please let the nurse or myself know if she has any discomfort after eating breakfast this AM. She reports PINON, sinus pressure, congestion and chest tightness - hospitalist team please evaluate & treat if needed Review of Systems Constitutional: No chills, No fever Respiratory: + cough, No shortness of breath Cardiac: No chest pain Abdomen: + constipation, + pain, No diarrhea, No nausea, No vomiting Skin: No rash Medications Current Inpatient Medications Medications (Trade) Dose Ordered Sig/Waldo Route Start Time Stop Time Status Last Admin Dose Admin Enoxaparin Sodium (Lovenox Inj) 40 mg Q24H SQ 09/06/16 06:00 10/06/16 05:59 09/07/16 05:57 40 MG Acetaminophen (Tylenol Tab) 650 mg Q4H PRN PO 09/05/16 23:30 10/05/16 23:29 09/07/16 07:38 650 MG Ondansetron HCl 4 mg 4 mg Q6H PRN IV 09/05/16 23:30 10/05/16 23:29 09/06/16 16:02 4 MG Lactated Ringer's (Lr 1000ml) 1,000 ml @ 200 mls/hr Q5H IV 09/05/16 23:30 10/05/16 23:29 09/07/16 04:50 200 MLS/HR Morphine Sulfate (MoRPHine SULFATE INJ) 2 mg Q4H PRN IV 09/05/16 23:30 09/19/16 23:29 09/06/16 20:52 2 MG Albuterol (Ventolin Hfa Inhaler) 2 puffs Q4H PRN INH 09/05/16 23:30 10/05/16 23:29 09/06/16 11:17 2 PUFFS Salmeterol Xinafoate/ Fluticasone (Advair Diskus 500/50 Inh) 1 puff BID INH 09/06/16 09:00 10/06/16 08:59 09/07/16 07:39 1 PUFF Levothyroxine Sodium (Synthroid Tab) 50 mcg DAILYBB PO 09/06/16 06:00 10/06/16 05:59 09/07/16 05:57 50 MCG Escitalopram Oxalate (Lexapro Tab) 10 mg HS PO 09/06/16 21:00 10/06/16 20:59 09/06/16 20:49 10 MG Dicyclomine HCl (Bentyl Cap) 10 mg TID PRN PO 09/06/16 09:30 10/06/16 09:29 09/06/16 20:48 10 MG Metoclopramide HCl (Reglan Inj) 5 mg TID IV 09/06/16 21:00 10/06/16 20:59 09/07/16 07:39 5 MG Objective Vital Signs Date Time Temp Pulse Resp B/P Pulse Ox O2 Delivery O2 Flow Rate FiO2 09/07/16 08:07 36.8 62 18 97/62 96 Room Air 09/07/16 00:02 Room Air 09/06/16 23:39 36.6 71 16 94/57 94 Room Air 09/06/16 16:00 36.7 66 18 102/65 97 Room Air 09/06/16 15:30 Room Air 09/06/16 08:20 Room Air Physical Exam General Appearance: no apparent distress (patient is resting comfortably in bed watching TV) ENT: hearing grossly normal Neck: supple, trachea midline Respiratory/Chest: lungs clear, normal breath sounds, no respiratory distress, no accessory muscle use Cardiovascular: regular rate, rhythm, no edema, no gallop, no JVD, no murmur Abdomen: normal bowel sounds, soft, no organomegaly, no pulsatile mass, + tenderness (tenderness with palpation of epigastric region) Neurologic/Psych: alert, normal mood/affect, oriented x 3 Skin: normal color, no jaundice, warm/dry Laboratory Results Last 24 Hours Test 09/07/16 08:17 Assessment and Plan GI OK to start IV maintenance fluids advance to low fat, gluten free diet this AM encouraged ambulation encouraged PO fluid intake Zofran PRN nausea Bentyl PRN for abd cramping for IBS Reglan 5mg IV TID for abdominal fullness Outpatient workup to follow - AIP, celiac, MRCP, EUS, fecal elastase, fecal fat GI will continue to follow Attg addendum: I interviewed and examined pt, reviewed chart and labs. Pt with continued bloating, but return of hunger and no need for pain medication. Pancreatitis appears clinically resolved. If pt tolerates reg diet without difficulty, she is ok for discharge later today with outpt f/u.
[2016-09-07 10:06] LABS: HEMATOCRIT 34.5 % (37-47); MEAN CELL VOLUME 87.8 fL (80-100); MEAN PLATELET VOLUME 10.9 fL (7.4-10.4); PLATELET COUNT 165 K/uL (130-400); RED BLOOD COUNT 3.93 M/uL (4.2-5.4); WHITE BLOOD COUNT 4.95 K/uL (4.8-10.8)
[2016-09-07 10:41] LABS: BUN/CREATININE RATIO 6.2 (10-20); CALCIUM 8.8 mg/dl (8.5-10.1); CREATININE 1.1 mg/dl (0.60-1.20); POTASSIUM 3.5 mmol/L (3.5-5.1)
[2016-09-07 10:48] LABS: ALB/GLOB RATIO 1.1 (0.9-2)
[2016-09-07] MEDS: DICYCLOMINE HCL 10 MG CAP PO PRN (13:06)
[2016-09-07] MEDS ORDERED: COUGH DROP (SUGAR FREE) LOZ 24 LOZ/1 BOX PO PRN (14:45)
[2016-09-07 14:55] VITALS: BP 99/62; PULSE 65; TEMP 36.7; O2SAT 98
[2016-09-07] MEDS: AMOXICILLIN/CLAVULANATE TAB 875 MG TAB PO SCH (18:18)
[2016-09-07] MEDS ORDERED: TRAMADOL HCL 50 MG TAB PO PRN (19:00)
[2016-09-07] MEDS ORDERED: MAGNESIUM HYDROXIDE SUSP 30 ML UDC PO PRN (19:00)
[2016-09-07] MEDS ORDERED: TRAMADOL HCL 50 MG TAB ONE (19:12)
[2016-09-07] MEDS ORDERED: MAGNESIUM HYDROXIDE SUSP 30 ML UDC ONE (19:12)
[2016-09-07] MEDS ORDERED: BISACODYL 5 MG TABEC PO ONE (21:30)
[2016-09-07] MEDS ORDERED: DOCUSATE SODIUM 100 MG CAP PO ONE (21:30)
[2016-09-07] MEDS ORDERED: SENNA 8.6 MG TAB PO ONE (21:30)
[2016-09-07] MEDS: ESCITALOPRAM OXALATE 10 MG TAB PO SCH (21:38)
[2016-09-07 23:03] VITALS: BP 91/54; PULSE 72; TEMP 36.6; O2SAT 95
[2016-09-07 23:30] VITALS: O2SAT 95
--- NOTE | 2016-09-07 23:51 | Progress Note ---
Medicine Progress Note Date & Time of Visit: Sep 07, 2016 at 23:50. Subjective states she tolerated dinner but feels bloated, with right sided abdominal pain no BM x 3 days has frontal headache, sinus congestion with yellow thick mucus and sore throat no dyspnea no nausea denies other symptoms Objective Last 8 Hrs Date Time Temp Pulse Resp B/P Pulse Ox O2 Delivery O2 Flow Rate FiO2 09/07/16 16:00 Room Air Physical Exam: General- oriented x 3, not in distress, speaks in sentences with no effort Eyes- anicteric ENT- oropharynx clear, no tonsillar enlargement, exudate, erythema Neck- supple, no JVD, no adenopathy Lungs- clear to auscultation b/l, no rales/wheeze Heart- normal rate, regular rhythm; no murmurs Abdomen-non distended, normal bowel sounds, soft, mild epigastric tenderness Extremities- no pretibial edema, no calf tenderness Neuro- alert, oriented x 3; no gross focal motor/sensory deficits Skin- warm & dry Laboratory Results: Last 24 Hours Test 09/07/16 09:41 White Blood Count 4.95 K/uL Red Blood Count 3.93 M/uL Hemoglobin 11.4 g/dL Hematocrit 34.5 % Mean Corpuscular Volume 87.8 fL Mean Corpuscular Hemoglobin 29.0 pg Mean Corpuscular Hemoglobin Concent 33.0 g/dl RDW Standard Deviation 42.4 fL RDW Coefficient of Variation 13.1 % Platelet Count 165 K/uL Mean Platelet Volume 10.9 fL Sodium Level 144 mmol/L Potassium Level 3.5 mmol/L Chloride Level 108 mmol/L Carbon Dioxide Level 26 mmol/L Anion Gap 10.0 mmol/L Blood Urea Nitrogen 7 mg/dl Creatinine 1.10 mg/dl Est Creatinine Clear Calc Drug Dose 68.8 ml/min Estimated GFR () 74.8 Estimated GFR (Non- 64.5 BUN/Creatinine Ratio 6.2 Random Glucose 122 mg/dl Calcium Level 8.8 mg/dl Total Bilirubin 0.5 mg/dl Aspartate Amino Transf (AST/SGOT) 45 U/L Alanine Aminotransferase (ALT/SGPT) 39 U/L Alkaline Phosphatase 57 U/L Total Protein 5.9 gm/dl Albumin 3.1 gm/dl Globulin 2.8 gm/dl Albumin/Globulin Ratio 1.1 Assessment & Plan 35 year old female with history of Pancreatitis, Celiac Disease, Ovarian CA s/p Chemo/Hysterectomy, Asthma, presenting with abdominal pain. Acute Recurrent Idiopathic Pancreatitis -->patient has had these symptoms in the past -->lipase > 1999 -->abdominal CT earlier today showed fullness of the pancreas -- no clear inciting factor -- lipase improved to 300s (+) abdominal bloating and right sided pain--> likely from constipation will order laxatives -- LR discontinued diet advanced PRN Morphine, Tramadol -- appreciate GI service input Possible Sinusitis, Pharyngitis - Augmentin started Asthma stable - PRN albuterol continue Advair Hypothyroidism -->continue synthroid Depression -->controlled with medications; continue home medications DVT ppx -->lovenox FULL CODE d/c home when pain improves and tolerating PO intake, likely tomorrow Current Inpatient Medications: Current Inpatient Medications Medications (Trade) Dose Ordered Sig/Waldo Route Start Time Stop Time Status Last Admin Dose Admin Enoxaparin Sodium (Lovenox Inj) 40 mg Q24H SQ 09/06/16 06:00 10/06/16 05:59 09/07/16 05:57 40 MG Acetaminophen (Tylenol Tab) 650 mg Q4H PRN PO 09/05/16 23:30 10/05/16 23:29 09/07/16 07:38 650 MG Ondansetron HCl (Zofran Inj) 4 mg Q6H PRN IV 09/05/16 23:30 10/05/16 23:29 09/06/16 16:02 4 MG Morphine Sulfate (MoRPHine SULFATE INJ) 2 mg Q4H PRN IV 09/05/16 23:30 09/19/16 23:29 09/06/16 20:52 2 MG Albuterol (Ventolin Hfa Inhaler) 2 puffs Q4H PRN INH 09/05/16 23:30 10/05/16 23:29 09/06/16 11:17 2 PUFFS Salmeterol Xinafoate/ Fluticasone (Advair Diskus 500/50 Inh) 1 puff BID INH 09/06/16 09:00 10/06/16 08:59 09/07/16 21:38 1 PUFF Levothyroxine Sodium (Synthroid Tab) 50 mcg DAILYBB PO 09/06/16 06:00 10/06/16 05:59 09/07/16 05:57 50 MCG Escitalopram Oxalate (Lexapro Tab) 10 mg HS PO 09/06/16 21:00 10/06/16 20:59 09/07/16 21:38 10 MG Dicyclomine HCl (Bentyl Cap) 10 mg TID PRN PO 09/06/16 09:30 10/06/16 09:29 09/07/16 13:06 10 MG Metoclopramide HCl (Reglan Inj) 5 mg TID IV 09/06/16 21:00 10/06/16 20:59 09/07/16 13:05 5 MG Amoxicillin/ Clavulanate Potassium (Augmentin Tab) 875 mg BIDM PO 09/07/16 17:45 09/17/16 17:44 09/07/16 18:18 875 MG Menthol (Nice Marty) 1 marty Q4H PRN PO 09/07/16 14:45 10/07/16 14:44 Magnesium Hydroxide (Milk Of Magnesia Susp) 30 ml Q6H PRN PO 09/07/16 19:00 10/07/16 18:59 Tramadol HCl (Ultram Tab) 50 mg Q6H PRN PO 09/07/16 19:00 10/07/16 18:59
[2016-09-08] MEDS: LEVOTHYROXINE 50 MCG TAB PO SCH (06:02)
[2016-09-08] MEDS: ENOXAPARIN 40 MG/0.4 ML SYR SQ SCH (06:03)
[2016-09-08] MEDS: DICYCLOMINE HCL 10 MG CAP PO PRN (07:54)
[2016-09-08 07:58] VITALS: BP 98/67; PULSE 65; TEMP 36.8; O2SAT 98
[2016-09-08] MEDS: FLUTICASONE/SALMETEROL (ADVAIR) 500/50 INH 14 PUFF INH SCH (09:11)
[2016-09-08] MEDS: AMOXICILLIN/CLAVULANATE TAB 875 MG TAB PO SCH ×2 (09:11→17:42)
[2016-09-08] MEDS: METOCLOPRAMIDE HCL INJ 5 MG/ML 2 ML VIAL IV SCH ×2 (09:13→14:45)
[2016-09-08] MEDS: ACETAMINOPHEN 325 MG TAB PO PRN (12:11)
--- NOTE | 2016-09-08 12:22 | Progress Note ---
Medicine Progress Note Date & Time of Visit: Sep 08, 2016 at 12:19. Subjective states her sore throat is less still has some nasal congestion, discharge tolerated breakfast well no epigastric pain no BM yet, feels bloated Objective Last 8 Hrs Date Time Temp Pulse Resp B/P Pulse Ox O2 Delivery O2 Flow Rate FiO2 09/08/16 07:58 36.8 65 16 98/67 98 Room Air 09/08/16 07:51 Room Air Physical Exam: General- oriented x 3, not in distress, speaks in sentences with no effort Eyes- anicteric Neck- supple, no JVD Lungs- clear to auscultation b/l, no rales/wheeze Heart- normal rate, regular rhythm; no murmurs Abdomen-non distended, normal bowel sounds, soft, mild right sided tendernes Extremities- no pretibial edema, no calf tenderness Neuro- alert, oriented x 3; no gross focal motor/sensory deficits Skin- warm & dry Assessment & Plan 35 year old female with history of Pancreatitis, Celiac Disease, Ovarian CA s/p Chemo/Hysterectomy, Asthma, presenting with abdominal pain. Acute Recurrent Idiopathic Pancreatitis -->patient has had these symptoms in the past -->lipase > 1999 -->abdominal CT earlier today showed fullness of the pancreas -- no clear inciting factor -- lipase improved to 300s -- LR discontinued diet advanced PRN Morphine, Tramadol -- appreciate GI service input (+) abdominal bloating and right sided pain--> likely from constipation no BM yet Lactulose , Dulc Supp ordered Possible Sinusitis, Pharyngitis - Augmentin started improving Asthma - stable - PRN albuterol continue Advair Hypothyroidism -->continue synthroid Depression -->controlled with medications; continue home medications DVT ppx -->lovenox FULL CODE d/c home once with BM Current Inpatient Medications: Current Inpatient Medications Medications (Trade) Dose Ordered Sig/Waldo Route Start Time Stop Time Status Last Admin Dose Admin Enoxaparin Sodium (Lovenox Inj) 40 mg Q24H SQ 09/06/16 06:00 10/06/16 05:59 09/08/16 06:03 40 MG Acetaminophen (Tylenol Tab) 650 mg Q4H PRN PO 09/05/16 23:30 10/05/16 23:29 09/08/16 12:11 650 MG Ondansetron HCl (Zofran Inj) 4 mg Q6H PRN IV 09/05/16 23:30 10/05/16 23:29 09/06/16 16:02 4 MG Morphine Sulfate (MoRPHine SULFATE INJ) 2 mg Q4H PRN IV 09/05/16 23:30 09/19/16 23:29 09/06/16 20:52 2 MG Albuterol (Ventolin Hfa Inhaler) 2 puffs Q4H PRN INH 09/05/16 23:30 10/05/16 23:29 09/06/16 11:17 2 PUFFS Salmeterol Xinafoate/ Fluticasone (Advair Diskus 500/50 Inh) 1 puff BID INH 09/06/16 09:00 10/06/16 08:59 09/08/16 09:11 1 PUFF Levothyroxine Sodium (Synthroid Tab) 50 mcg DAILYBB PO 09/06/16 06:00 10/06/16 05:59 09/08/16 06:02 50 MCG Escitalopram Oxalate (Lexapro Tab) 10 mg HS PO 09/06/16 21:00 10/06/16 20:59 09/07/16 21:38 10 MG Dicyclomine HCl (Bentyl Cap) 10 mg TID PRN PO 09/06/16 09:30 10/06/16 09:29 09/08/16 07:54 10 MG Metoclopramide HCl (Reglan Inj) 5 mg TID IV 09/06/16 21:00 10/06/16 20:59 09/08/16 09:13 5 MG Amoxicillin/ Clavulanate Potassium (Augmentin Tab) 875 mg BIDM PO 09/07/16 17:45 09/17/16 17:44 09/08/16 09:11 875 MG Menthol (Nice Marty) 1 marty Q4H PRN PO 09/07/16 14:45 10/07/16 14:44 Magnesium Hydroxide (Milk Of Magnesia Susp) 30 ml Q6H PRN PO 09/07/16 19:00 10/07/16 18:59 09/08/16 06:02 30 ML Tramadol HCl (Ultram Tab) 50 mg Q6H PRN PO 09/07/16 19:00 10/07/16 18:59 09/08/16 07:55 50 MG
[2016-09-08] MEDS ORDERED: LACTULOSE SYRUP 20 GM/30 ML UDC PO PRN (12:30)
[2016-09-08] MEDS ORDERED: BISACODYL 10 MG SUPP PR PRN (12:30)
[2016-09-08] MEDS ORDERED: LACTULOSE SYRUP 30 GM/45 ML UDP PO PRN (12:45)
[2016-09-08] MEDS ORDERED: LACTULOSE SYRUP 30 GM/45 ML UDP PO ONE (12:45)
--- NOTE | 2016-09-08 13:06 | Gastroenterology Progress Note ---
Progress Note Date of Service: Sep 08, 2016 Subjective Pt evaluation today including: conversation w/ patient, physical exam, chart review Patient states that she feels well and would like to go home. She states that she tolerated dinner and breaktfast this AM without any pain. She is eating lunch right now. She tells me that her hospitalist had ordered lactulose to prompt a bowel movement as she has not had one in three days. She states her abdominal bloating is unresolved at the time. Review of Systems Constitutional: No chills, No fever Respiratory: No shortness of breath Cardiac: No chest pain Abdomen: + constipation (with associated bloating), No diarrhea, No nausea, No pain, No vomiting Medications Current Inpatient Medications Medications (Trade) Dose Ordered Sig/Waldo Route Start Time Stop Time Status Last Admin Dose Admin Enoxaparin Sodium (Lovenox Inj) 40 mg Q24H SQ 09/06/16 06:00 10/06/16 05:59 09/08/16 06:03 40 MG Acetaminophen (Tylenol Tab) 650 mg Q4H PRN PO 09/05/16 23:30 10/05/16 23:29 09/08/16 12:11 650 MG Ondansetron HCl (Zofran Inj) 4 mg Q6H PRN IV 09/05/16 23:30 10/05/16 23:29 09/06/16 16:02 4 MG Morphine Sulfate (MoRPHine SULFATE INJ) 2 mg Q4H PRN IV 09/05/16 23:30 09/19/16 23:29 09/06/16 20:52 2 MG Albuterol (Ventolin Hfa Inhaler) 2 puffs Q4H PRN INH 09/05/16 23:30 10/05/16 23:29 09/06/16 11:17 2 PUFFS Salmeterol Xinafoate/ Fluticasone (Advair Diskus 500/50 Inh) 1 puff BID INH 09/06/16 09:00 10/06/16 08:59 09/08/16 09:11 1 PUFF Levothyroxine Sodium (Synthroid Tab) 50 mcg DAILYBB PO 09/06/16 06:00 10/06/16 05:59 09/08/16 06:02 50 MCG Escitalopram Oxalate (Lexapro Tab) 10 mg HS PO 09/06/16 21:00 10/06/16 20:59 09/07/16 21:38 10 MG Dicyclomine HCl (Bentyl Cap) 10 mg TID PRN PO 09/06/16 09:30 10/06/16 09:29 09/08/16 07:54 10 MG Metoclopramide HCl (Reglan Inj) 5 mg TID IV 09/06/16 21:00 10/06/16 20:59 09/08/16 09:13 5 MG Amoxicillin/ Clavulanate Potassium (Augmentin Tab) 875 mg BIDM PO 09/07/16 17:45 09/17/16 17:44 09/08/16 09:11 875 MG Menthol (Nice Marty) 1 marty Q4H PRN PO 09/07/16 14:45 10/07/16 14:44 Magnesium Hydroxide (Milk Of Magnesia Susp) 30 ml Q6H PRN PO 09/07/16 19:00 10/07/16 18:59 09/08/16 06:02 30 ML Tramadol HCl (Ultram Tab) 50 mg Q6H PRN PO 09/07/16 19:00 10/07/16 18:59 09/08/16 07:55 50 MG Bisacodyl (Dulcolax Supp) 10 mg DAILY PRN KS 09/08/16 12:30 10/08/16 12:29 Lactulose (Chronulac Syrup) 30 gm TID PRN PO 09/08/16 12:45 10/08/16 12:44 Objective Vital Signs Date Time Temp Pulse Resp B/P Pulse Ox O2 Delivery O2 Flow Rate FiO2 09/08/16 07:58 36.8 65 16 98/67 98 Room Air 09/08/16 07:51 Room Air 09/07/16 23:30 95 Room Air 09/07/16 23:03 36.6 72 16 91/54 95 Room Air 09/07/16 16:00 Room Air 09/07/16 14:55 36.7 65 18 99/62 98 Room Air Physical Exam General Appearance: no apparent distress Eyes: PERRL ENT: hearing grossly normal Neck: supple, trachea midline Respiratory/Chest: chest non-tender, lungs clear, normal breath sounds, no respiratory distress, no accessory muscle use Cardiovascular: regular rate, rhythm, no edema, no gallop, no JVD, no murmur Abdomen: normal bowel sounds, non tender, soft, no organomegaly, no pulsatile mass Neurologic/Psych: alert, normal mood/affect, oriented x 3 Skin: normal color, no jaundice, warm/dry, no rash Assessment and Plan d/c reglan prior to discharge OK to discharge from GI standpoint Follow up with GI outpatient - AIP, celiac, MRCP, EUS, fecal elastase, fecal fat
[2016-09-08 15:42] VITALS: BP 98/67; PULSE 65; TEMP 36.8; O2SAT 98
[2016-09-08 16:10] VITALS: BP 97/63; PULSE 71; TEMP 36.6; O2SAT 97
[2016-09-08] MEDS ORDERED: METO-157 PO (17:39)
[2016-09-08] MEDS ORDERED: SENN8.6T7 PO (17:39)
[2016-09-08] MEDS ORDERED: LCTL45 PO (17:39)
[2016-09-08] MEDS ORDERED: ULT50X PO (17:39)
[2016-09-08] MEDS ORDERED: BNT10 PO (17:39)
[2016-09-08] MEDS ORDERED: AMOX1TAB43 PO (17:39)
--- NOTE | 2016-09-08 17:49 | Discharge Instructions ---
Discharge Instructions Admission Reason for Admission: Pancreatitis Discharge Discharge Diagnosis / Problem: Acute Pancreatitis Discharge Goals Goal(s): Diagnostic testing, Therapeutic intervention Activity Recommendations Activity Limitations: resume your previous activity Driving or Machine Use: Do not drive while taking Tramadol or other narcotics. . Instructions / Follow-Up Instructions / Follow-Up DRINK PLENTY OF FLUIDS. LOW FAT, SOFT DIET X 1 WEEK. CALL PRIMARY CARE PHYSICIAN OR RETURN TO ER IMMEDIATELY IF WITH RETURN OF SYMPTOMS. PLEASE FOLLOW UP WITH DR. MEDINA ON Sunday09/11/16 AT 11:10AM. FOLLOW UP WITH DR. RIDDLE- LOAN OPERATIONS SPECIALIST IN 2-3 WEEKS. TEL. NO. Current Hospital Diet Patient's current hospital diet: Gluten Free Diet, Low Fat Diet Discharge Diet Recommended Diet: Low Fiber Diet, Low Fat Diet, Gluten Free Diet Pending Studies Studies pending at discharge: no Medical Emergencies . Who to Call and When: Medical Emergencies: If at any time you feel your situation is an emergency, please call 911 immediately. . Non-Emergent Contact Non-Emergency issues call your: Primary Care Provider Call Non-Emergent contact if: you have a fever, your pain is not controlled, your pain is worsening, your pain is unusual for you . Past History Medical & Surgical History: (1) Pancreatitis (2) Cellulitis (3) Calcific shoulder tendinitis (4) Right shoulder pain (5) Calcific shoulder tendinitis (6) Acute pancreatitis (7) Flank pain (8) Hypokalemia (9) History of hysterectomy (10) History of cholecystectomy (11) History of appendectomy . "Provider Documentation" section prepared by Enrique Herrera. VTE Core Measure Inpt VTE Proph given/why not?: Enoxaparin (Lovenox)SQ
[2016-09-08] MEDS ORDERED: ONDA4TAB65 PO (17:53)
--- NOTE | 2016-09-08 18:03 | Discharge Summary ---
Discharge Summary Admission Date: Sep 05, 2016 at 23:24 Discharge Date: Sep 08, 2016 Discharge Disposition: Home Principal Diagnosis: Acute Recurrent Idiopathic Pancreatitis Secondary Diagnoses/Problems: Please refer to hospital course below. Consultations: GI- Dr. Riddle Pending Studies/Follow-Up: Please refer to hospital course below. Medication Reconciliation New Medications: Ondansetron Hcl (Zofran) 4 Mg Tab 4 MG PO Q6H PRN for nausea, #20 TAB 1 Refill Sennosides-Docusate Sodium (Senokot S) 1 Tab Tab 1 TAB PO DAILY for 7 Days, #7 TAB 1 Refill Amoxicillin & Pot Clavulanate (Amoxicillin/Clavulanate P) 1 Tab Tab 875 MG PO BIDM for 5 Days, #10 TAB 0 Refills Dicyclomine HCl (Dicyclomine HCl) 10 Mg Cap 10 MG PO TID PRN for abdominal cramping, #20 CAP 2 Refills Lactulose (Lactulose) 30 Gm/45 Ml Syrp 30 GM PO BID PRN for Constipation, #1 BTL 2 Refills Tramadol HCl (Tramadol HCl) 50 Mg Tab 50 MG PO Q6H PRN for Pain, #10 TAB 0 Refills Continued Medications: Albuterol (Proair Hfa) Aers 2 PUFFS INH Q4H PRN for WHEEZING,SOB,PRIOR TO EXERCISE Escitalopram (Lexapro) 10 Mg Tab 10 MG PO DAILY, TAB Fluticasone Prop/Salmeterol (Advair Diskus 500/50 60 Dose) 1 Ea Aerp 1 PUFF INH BID, INHALER Levothyroxine Sodium (Synthroid) 50 Mcg Tab 50 MCG PO DAILY Oxycodone Immediate Rel Tab (Roxicodone Ir) 5 Mg Tab 5 MG PO Q4H PRN for Severe Pain, #20 TAB Sumatriptan Succinate (Imitrex) 100 Mg Tab 100 MG PO UD PRN for Migraine, TAB Admission Information HPI (per Admitting provider): This is a 35 year old female with PMH of ovarian cancer, in remission since 2013 , recurrent idiopathic pancreatitis, depression, celiac disease presents with epigastric tenderness - she presented to the ER twice today (09/05/16) - initially she had some right sided abdominal/flank tenderness and had a CT done showing some pancreas fullness. At that time, she had a normal level of lipase - she was sent home, but returned with worsening epigastric pain; found to have lipase of > 2000. She has had this in the past - uncomplicated idiopathic pancreatitis. Has had her gallbladder removed a few years prior. No recurrence of her ovarian cancer and she follows with oncology every 6 months. Currently pain in the epigastric region is similar to her previous pancreatitis episodes. No other issues to note. Physical Exam (per Admitting): General Appearance: + mild distress (secondary to pain) Head: normocephalic, atraumatic Eyes: normal inspection ENT: hearing grossly normal Respiratory/Chest: lungs clear, normal breath sounds, no respiratory distress, no accessory muscle use Cardiovascular: regular rate, rhythm, no edema, no murmur Abdomen/GI: normal bowel sounds, soft, + tenderness (worse epigastric tenderness, though tenderness throughout exam), + pertinent finding ( nondistended) Extremities/Musculoskelatal: normal capillary refill, no pedal edema Neurologic/Psych: no motor/sensory deficits, alert, normal mood/affect Skin: normal color Lymphatic: no adenopathy Hospital Course 35 year old female with history of Pancreatitis, Celiac Disease, Ovarian CA s/p Chemo/Hysterectomy, Asthma, presenting with abdominal pain. Acute Recurrent Idiopathic Pancreatitis -->lipase > 2000 -->abdominal CT showed fullness of the pancreas -- no clear inciting factor- no gallstones, alcohol, etc. -- given vigorous IV fluids- Lactated Ringer's; given PRN Morphine, Tramadol -- lipase improved to 300s abdominal pain improved diet advanced -- evaluated by GI- Dr. Riddle cleared for discharge recommend outpatient follow up for: AIP, celiac, MRCP, EUS, fecal elastase, fecal fat Constipation (+) abdominal bloating and right sided pain--> likely from constipation given laxatives- did not respond to Dulcolax, Senna; had a BM with Lactulose Senokot S daily, PRN Lactulose on discharge Possible Sinusitis, Pharyngitis - Augmentin started improving - continue Augmentin 875mg BID x 5 more days Asthma - stable - PRN albuterol continue Advair Hypothyroidism -->continue synthroid Depression -->controlled with medications; continue home medications Disposition d/c home ff up with Dr. Medina on 09/11/16 ff up with GI in 2-3 weeks Total time spent on discharge = 35 minutes This includes examination of the patient, discharge planning, medication reconciliation, and communication with other providers. Discharge Instructions Discharge Instructions Admission Reason for Admission: Pancreatitis Discharge Discharge Diagnosis / Problem: Acute Pancreatitis Discharge Goals Goal(s): Diagnostic testing, Therapeutic intervention Activity Recommendations Activity Limitations: resume your previous activity Driving or Machine Use: Do not drive while taking Tramadol or other narcotics. . Instructions / Follow-Up Instructions / Follow-Up DRINK PLENTY OF FLUIDS. LOW FAT, SOFT DIET X 1 WEEK. CALL PRIMARY CARE PHYSICIAN OR RETURN TO ER IMMEDIATELY IF WITH RETURN OF SYMPTOMS. PLEASE FOLLOW UP WITH DR. MEDINA ON Sunday09/11/16 AT 11:10AM. FOLLOW UP WITH DR. RIDDLE- TECHNICAL DIRECTOR IN 2-3 WEEKS. TEL. NO. Current Hospital Diet Patient's current hospital diet: Gluten Free Diet, Low Fat Diet Discharge Diet Recommended Diet: Low Fiber Diet, Low Fat Diet, Gluten Free Diet Pending Studies Studies pending at discharge: no Medical Emergencies . Who to Call and When: Medical Emergencies: If at any time you feel your situation is an emergency, please call 911 immediately. . Non-Emergent Contact Non-Emergency issues call your: Primary Care Provider Call Non-Emergent contact if: you have a fever, your pain is not controlled, your pain is worsening, your pain is unusual for you . Past History Medical & Surgical History: (1) Pancreatitis (2) Cellulitis (3) Calcific shoulder tendinitis (4) Right shoulder pain (5) Calcific shoulder tendinitis (6) Acute pancreatitis (7) Flank pain (8) Hypokalemia (9) History of hysterectomy (10) History of cholecystectomy (11) History of appendectomy . "Provider Documentation" section prepared by Enrique Herrera. VTE Core Measure Inpt VTE Proph given/why not?: Enoxaparin (Lovenox)SQ
--- NOTE | 2016-09-08 18:08 | Progress Note ---
Progress Note attending addendum [employer] queried Enrique Stoll
== END 2016-09-08 18:15 | disposition home or self-care (01) | DRG 439 ==
LOC: ENRESERVDT → ENRESERVTM → C.EDB 19:30 → C.MSN 23:24
PROVIDERS: ADMIT Family Medicine; ATTEND Internal Medicine
DX: K85.90 Acute pancreatitis without necrosis or infection, unspecified (principal); C56.9 Malignant neoplasm of unspecified ovary; E03.9 Hypothyroidism, unspecified; F32.9 Major depressive disorder, single episode, unspecified; J45.909 Unspecified asthma, uncomplicated; J32.9 Chronic sinusitis, unspecified; J02.9 Acute pharyngitis, unspecified; K90.0 Celiac disease; K58.9 Irritable bowel syndrome, unspecified; Z23 Encounter for immunization; Z92.21 Personal history of antineoplastic chemotherapy; Z90.710 Acquired absence of both cervix and uterus; Z79.51 Long term (current) use of inhaled steroids; Z79.899 Other long term (current) drug therapy

== ENCOUNTER 2016-11-14 01:17 | Emergency (ER) | payer OTHER ==
[~2016-11-14] VITALS: Ht 170.2 cm; Wt 62.0 kg
[~2016-11-14 01:17] MED LIST changes: +AMOX1TAB43 PO; -ASCO10003 PO; +BNT10 PO; -CALC600T9 PO; -GLUC10007 PO; +LCTL45 PO; -MISCCAP80 PO; -MLXESC PO; -MULT-506 PO; +ONDA4TAB65 PO; +SENN8.6T7 PO; +ULT50X PO
[2016-11-14 01:21] VITALS: TEMP 36.6; Ht 170.2 cm; Wt 62.0 kg
[2016-11-14] MEDS ORDERED: ONDANSETRON INJ 2 MG/ML 2 ML VIAL IV STA ×2 (01:35→03:21)
[2016-11-14] MEDS ORDERED: SODIUM CHLORIDE 0.9% 1000ML 1,000 ML IV ONE (01:45)
[2016-11-14] MEDS: MoRPHine SULFATE 4 MG/ML 1 ML CARP\\VIAL IV PRN ×2 (01:46→03:28)
[2016-11-14] MEDS ORDERED: FLVHFA110 PO (01:52)
[2016-11-14] MEDS ORDERED: PANC6000 PO (01:53)
[2016-11-14] MEDS ORDERED: LEVO88TA3 PO (01:53)
[2016-11-14] MEDS ORDERED: PANC1CAP PO (01:53)
[2016-11-14 02:25] LABS: BASO % 0.3 %; BASO ABS # 0.02 K/uL (0-0.2); COMPLETE YES; EOS % 10.4 %; HEMATOCRIT 39.7 % (37-47); IG% 0.1 %; LYMPH % 31.9 %; LYMPH ABS # 2.23 K/uL (1.2-3.4); MEAN CELL VOLUME 87.4 fL (80-100); MEAN CORPUSCULAR HEMOGLOBIN 29.7 pg (25-34); MEAN PLATELET VOLUME 12.1 fL (7.4-10.4); MONO % 8.3 %; PLATELET COUNT 224 K/uL (130-400); RED BLOOD COUNT 4.54 M/uL (4.2-5.4)
[2016-11-14 02:25] LABS: URINE APPEARANCE CLEAR (CLEAR); URINE BILIRUBIN NEG (NEG); URINE COLOR YELLOW; URINE NITRITE NEG (NEG); URINE SPECIFIC GRAVITY 1.019 (1.000-1.030); UROBILINOGEN NEG (NEG); ZZUR CULT IF INDIC CLEAN CATCH NO
[2016-11-14 02:26] LABS: MANUAL MICROSCOPIC REQUIRED? NO; REVIEW REQ? YES
[2016-11-14 02:34] LABS: BUN/CREATININE RATIO 13.5 (10-20); CREATININE 1.2 mg/dl (0.60-1.20); POTASSIUM 3.4 mmol/L (3.5-5.1)
[2016-11-14 02:37] LABS: ALB/GLOB RATIO 1.2 (0.9-2)
[2016-11-14] MEDS ORDERED: OXYCODONE IR HOME PACK PO ONE (03:30)
[2016-11-14] MEDS ORDERED: ONDANSETRON HOME PACK 4MG OD TAB PO ONE (03:30)
[2016-11-14 03:40] VITALS: BP 96/69; PULSE 68; O2SAT 97
--- NOTE | 2016-11-14 03:51 | EMERGENCY ROOM VISIT NOTE ---
History First contact with patient: :28 Chief Complaint: ABDOMINAL PAIN Stated Complaint: PANCREATITIS ATTACK Nursing Triage Summary: c/o upper abdominal pain that began tonight around 0030 along with nausea. has hx of pancreatitis. History of Present Illness The patient is a 36 year old female who presents to the Emergency Room with complaints of epigastric abdominal pain that began about 1-2 hours ago. The patient has a long-standing history of pancreatitis and is in the process of being referred to [facility] for further evaluation. The patient states that her symptoms are identical to previous pancreatitis attacks. She is nauseated without vomiting. She does not have chest pain, chest tightness, shortness of breath, or lower abdominal pain. No fever or chills. She has not taken anything [id number] for her discomfort which she currently rates an 8/10. Review of Systems More than 10 systems were reviewed and otherwise negative with the exception of history of present illness. Past Medical/Surgical History Medical Problems: (1) Calcific shoulder tendinitis (2) Cellulitis (3) Right shoulder pain Surgical Problems: (1) History of appendectomy (2) History of cholecystectomy (3) History of hysterectomy Family History No pertinent family history Social History Smoking Status: Never Smoker Alcohol Use: occasionally Drug Use: none Marital Status: Housing Status: lives with significant other Occupation Status: employed Current/Historical Medications Scheduled Escitalopram (Lexapro), 10 MG PO DAILY Fluticasone Propionate (Flovent Hfa), 2 PUFFS PO BID Levothyroxine Sodium (Levothyroxine Sodium), 88 MCG PO DAILY Pancrelipase (Lipase-Protease- (Creon), 3,000 MG PO WITH SNACKS Pancrelipase (Lipase-Protease- (Creon), 6,000 MG PO TIDM Scheduled PRN Sumatriptan Succinate (Imitrex), 100 MG PO UD PRN for Migraine Allergies Coded Allergies: Gluten (Unverified Allergy, Intermediate, food intolerance, 11/14/16) Hydromorphone (Verified Allergy, Intermediate, hallucinations, 11/14/16) Physical Exam Vital Signs Date Time Temp Pulse Resp B/P Pulse Ox O2 Delivery O2 Flow Rate FiO2 11/14/16 03:40 68 18 96/69 97 11/14/16 02:56 78 20 95/63 96 Room Air 11/14/16 01:21 36.6 80 18 98/66 98 Room Air Pain Rating (0-10): 3.0 Physical Exam VITALS: Vitals are noted on the nurse's note and reviewed by myself. Vital signs stable. GENERAL: Well-developed, well-nourished, white female who appears in moderate discomfort secondary to her stated complaint. Patient is cooperative with the examination. HEAD: Normocephalic atraumatic. HEART: Regular rate and rhythm without murmurs gallops or rubs. LUNGS: Clear to auscultation bilaterally without wheezes, rales or rhonchi. No retractions or accessory muscle use. ABDOMEN: Positive normal bowel sounds x 4. Soft with palpable tenderness in the epigastrium. No lower abdominal tenderness. No CVA tenderness. No rebound or guarding. MUSCULOSKELETAL: No muscle atrophy, erythema, or edema noted. Full range of motion without joint tenderness in all extremities. Medical Decision & Procedures Laboratory Results 11/14/16 01:40 Red Blood Count 4.54, Mean Corpuscular Volume 87.4, Mean Corpuscular Hemoglobin 29.7, Mean Corpuscular Hemoglobin Concent 34.0, Mean Platelet Volume 12.1, Neutrophils (%) (Auto) 49.0, Lymphocytes (%) (Auto) 31.9, Monocytes (%) (Auto) 8.3, Eosinophils (%) (Auto) 10.4, Basophils (%) (Auto) 0.3, Neutrophils # (Auto ) 3.43, Lymphocytes # (Auto) 2.23, Monocytes # (Auto) 0.58, Eosinophils # (Auto ) 0.73, Basophils # (Auto) 0.02 11/14/16 01:40 Test 11/14/16 01:40 11/14/16 01:45 White Blood Count 7.00 K/uL (4.8-10.8) Red Blood Count 4.54 M/uL (4.2-5.4) Hemoglobin 13.5 g/dL (12.0-16.0) Hematocrit 39.7 % (37-47) Mean Corpuscular Volume 87.4 fL (80-100) Mean Corpuscular Hemoglobin 29.7 pg (25-34) Mean Corpuscular Hemoglobin Concent 34.0 g/dl (32-36) Platelet Count 224 K/uL (130-400) Mean Platelet Volume 12.1 fL (7.4-10.4) Neutrophils (%) (Auto) 49.0 % Lymphocytes (%) (Auto) 31.9 % Monocytes (%) (Auto) 8.3 % Eosinophils (%) (Auto) 10.4 % Basophils (%) (Auto) 0.3 % Neutrophils # (Auto) 3.43 K/uL (1.4-6.5) Lymphocytes # (Auto) 2.23 K/uL (1.2-3.4) Monocytes # (Auto) 0.58 K/uL (0.11-0.59) Eosinophils # (Auto) 0.73 K/uL (0-0.5) Basophils # (Auto) 0.02 K/uL (0-0.2) RDW Standard Deviation 41.2 fL (36.4-46.3) RDW Coefficient of Variation 12.9 % (11.5-14.5) Immature Granulocyte % (Auto) 0.1 % Immature Granulocyte # (Auto) 0.01 K/uL (0.00-0.02) Anion Gap 8.0 mmol/L (3-11) Est Creatinine Clear Calc Drug Dose 62.4 ml/min Estimated GFR () 66.9 Estimated GFR (Non- 57.7 BUN/Creatinine Ratio 13.5 (10-20) Calcium Level 9.0 mg/dl (8.5-10.1) Total Bilirubin 0.2 mg/dl (0.2-1) Aspartate Amino Transf (AST/SGOT) 15 U/L (15-37) Alanine Aminotransferase (ALT/SGPT) 18 U/L (12-78) Alkaline Phosphatase 71 U/L (45-117) Total Protein 7.2 gm/dl (6.4-8.2) Albumin 3.9 gm/dl (3.4-5.0) Globulin 3.3 gm/dl (2.5-4.0) Albumin/Globulin Ratio 1.2 (0.9-2) Amylase Level 87 U/L (25-115) Lipase 383 U/L (73-393) Urine Color YELLOW Urine Appearance CLEAR (CLEAR) Urine pH 6.0 (4.5-7.5) Urine Specific [place] 1.019 (1.000-1.030) Urine Protein NEG (NEG) Urine Glucose (UA) NEG (NEG) Urine Ketones NEG (NEG) Urine Occult Blood NEG (NEG) Urine Nitrite NEG (NEG) Urine Bilirubin NEG (NEG) Urine Urobilinogen NEG (NEG) Urine Leukocyte Esterase TRACE (NEG) Urine WBC (Auto) 1-5 /hpf (0-5) Urine RBC (Auto) 0-4 /hpf (0-4) Urine Hyaline Casts (Auto) 1-5 /lpf (0-5) Urine Epithelial Cells (Auto) 5-10 /lpf (0-5) Urine Bacteria (Auto) NEG (NEG) Urine Crystals CALCIUM OXALATE (NONE Urine Test NEG (NEG) Medications Administered Medications (Trade) Dose Ordered Sig/Waldo Route Start Time Stop Time Status Last Admin Dose Admin Morphine Sulfate 4 mg 4 mg Q1H PRN IV 11/14/16 01:45 11/28/16 01:44 11/14/16 03:28 4 MG Sodium Chloride (Nss 1000ml) 1,000 ml @ 999 mls/hr Q1H1M ONCE IV 11/14/16 01:45 11/14/16 02:45 DC 11/14/16 01:45 999 MLS/HR Ondansetron HCl (Zofran Inj) 4 mg NOW STAT IV 11/14/16 01:35 11/14/16 01:36 DC 11/14/16 01:45 4 MG Ondansetron HCl (Zofran Inj) 4 mg NOW STAT IV 11/14/16 03:21 11/14/16 03:22 DC 11/14/16 03:28 4 MG Ondansetron HCl (ZOFRAN ODT 4MG Home Pack) 1 homepack UD ONCE PO 11/14/16 03:30 11/14/16 03:31 DC 11/14/16 03:30 1 HOMEPACK Oxycodone HCl (Roxicodone Immediate Rel 5MG Home Pack) 1 homepack UD ONCE PO 11/14/16 03:30 11/14/16 03:31 DC 11/14/16 03:30 1 HOMEPACK ED Course Physical exam and history were performed. Nursing notes and EMR were reviewed. Patient appears to have epigastric abdominal pain for the past one to 2 hours. On examination the patient appears in moderate discomfort and she is tender in the epigastrium. She does have a past history of pancreatitis, and her most recent CAT scan was about 2 months ago where she was admitted to this facility. I do not feel additional CT imaging is warranted at this time. IV access was established and labs were obtained. The patient was hydrated with normal saline and provided IV morphine and IV Zofran for comfort. The patient's blood work is as above and was reviewed. She does not have a significantly elevated white blood cell count, anemia, bandemia, or significant electrolyte imbalance. Amylase and lipase were nondiagnostic. Transaminases were within normal limits. Urine is without evidence of infection. On repeat examination the patient had significant improvement of her symptoms. She continued to have very mild epigastric abdominal pain. I discussed options of care with the patient. She has a normal amylase and lipase at this time, however based on her history and exam I did offer for her to stay in the hospital. Using shared decision making, the patient elected to be discharged home as she is feeling much improved. I will provide her a short course of Zofran and OxyIR to use at home. I thoroughly invited her back to the ER if she developed new, worsening, or concerning symptoms. I recommended a clear liquid diet today, and close follow-up with her PCP. The patient and her understand they're welcome to return any time and were pleased with this plan. The patient rated her discomfort a 3/10 at the time of her departure. The chart was completed utilizing [employer] Voice Recognition Software. Grammatical errors, random word insertions, pronoun errors, and incomplete sentences are an occasional consequence of this system due to software limitations, ambient noise, and hardware issues. Any formal questions or concerns about the content, text, or information contained within the body of this dictation should be directly addressed to the provider for clarification. . Medical Decision Differential diagnosis: Etiologies such as appendicitis, diverticulitis, PUD, biliary pathology, UTI, pancreatitis, obstruction, mesenteric ischemia, aortic pathology, infections, inflammatory bowel disease, renal colic, as well as others were entertained. Impression Primary Impression: Epigastric abdominal pain Departure Information Dispostion Home / Self-Care Condition GOOD Forms Call Back Authorization, HOME CARE DOCUMENTATION FORM, IMPORTANT VISIT INFORMATION Patient Instructions My [facility] Additional Instructions You were seen and evaluated today on an emergency basis only. This is not a substitute for, or an effort to provide, complete comprehensive medical care. It is not possible to recognize and treat all injuries or illnesses in a single emergency department visit. For this reason it is recommended that you followup with your primary care physician's office by telephone tomorrow to arrange a follow-up visit this week. For baseline pain relief you may alternate ibuprofen and acetaminophen every 4 hours for pain control. Take 600 mg ibuprofen (Advil) and then 4 hours later take 1000 mg acetaminophen (Tylenol). Do not take more than 3000 mg acetaminophen in a single day. Oxycodone (OxyIR) 5mg: Take ONE pill every SIX hours for breakthrough pain. Avoid alcohol, operating machinery or dangerous equipment, working on ladders or roofs, DRIVING, or situations where being under the influence may be dangerous. It is recommended to use an [id number] stool softener such as Colace, 100mg twice daily while taking this medication to avoid constipation. Zofran 1 tablet every 6 hrs as needed for nausea. Practice a liquid diet for the next 24 hours then slowly advance your diet as tolerated. You are welcome to return to the emergency department anytime with new, worsening, or concerning symptoms.
== END 2016-11-14 03:42 | disposition hospice, home (50) ==
LOC: C.EDB 01:18 → C.EDA 03:42
DX: R10.13 Epigastric pain (principal); K86.1 Other chronic pancreatitis; Z86.19 Personal history of other infectious and parasitic diseases; Z90.710 Acquired absence of both cervix and uterus; Z90.49 Acquired absence of other specified parts of digestive tract; Z88.5 Allergy status to narcotic agent; Z91.09 Other allergy status, other than to drugs and biological substances

== ENCOUNTER → 2018-01-10 | Outpatient (CLI) | payer BC ==
[~2018-01-10] MED LIST changes: -ADVIN50/60 INH; -ALBU1AER9 INH; -AMOX1TAB43 PO; -BNT10 PO; +FLVHFA110 PO; -LCTL45 PO; +LEVO88TA3 PO; -ONDA4TAB65 PO; +OPTIRAY 320 IV PRN; -OXYC1TAB3 PO; +PANC1CAP PO; +PANC6000 PO; -SENN8.6T7 PO; -SYN50 PO; -ULT50X PO
--- NOTE | 2018-01-10 17:18 | DIAGNOSTIC IMAGING REPORT ---
ABD/PELVIS IV AND ORAL CONT CLINICAL HISTORY: 37 years-old Female presenting with HX OVARIAN CANCER, follow-up. TECHNIQUE: Multidetector CT of the abdomen and pelvis was performed after the administration of oral and intravenous contrast. IV contrast: 94 mL of Optiray 320. A dose lowering technique was used consistent with the principles of ALARA (as low as reasonably achievable). COMPARISON: 09/05/2016. CT DOSE (mGy.cm): The estimated cumulative dose is 467.76. FINDINGS: Residential Installer topogram: Cholecystectomy clips. Lung bases: Lungs and pleural spaces clear. Normal heart size. No pericardial or pleural effusion. Liver: Normal morphology. Perfusional variation or fatty infiltration along the fissure for the ligamentum teres. No liver lesion. Patent hepatic vasculature. Biliary: No intrahepatic or extrahepatic biliary ductal dilatation. Gallbladder surgically absent. Pancreas: Normal. Spleen: Normal. Adrenal glands: Normal. Kidneys and ureters: Punctate nonobstructing calculus in the interpolar region of the left kidney. Mild right pelviectasis. Ureters normal. Bladder: Normal. Pelvic organs: Uterus surgically absent. No adnexal masses. Bowel: Moderate stool burden in the rectum. Mild stool burden in the remainder of colon. Oral contrast has transited to the sigmoid colon. No bowel obstruction. Peritoneal cavity: No free fluid or intraperitoneal gas. Lymph nodes: No enlarged lymph nodes in the abdomen or pelvis. Vasculature: Aorta and IVC patent and normal in caliber. Abdominal wall: Postsurgical changes in the midline infraumbilical abdominal wall. Musculoskeletal: Normal. IMPRESSION: 1. Postsurgical changes of hysterectomy and oophorectomy. No lymphadenopathy or evidence of metastatic disease in the abdomen or pelvis. 2. No acute intra-abdominal pathology. 3. Moderate stool burden in the rectum. 4. Nonobstructing punctate left renal calculus. Electronically signed by: Hubert Granado M.D. 01/10/2018 5:16 PM Dictated Date/Time: 01/10/2018 5:09 PM
--- NOTE | 2018-01-10 17:25 | DIAGNOSTIC IMAGING REPORT ---
CHEST CT WITH CONTRAST CT DOSE: 467.76 mGy.cm HISTORY: Follow-up study in a patient with history of ovarian cancer . Subsequent treatment strategy. HX CANVER TECHNIQUE: Multiaxial CT images of the chest were performed following the intravenous administration of contrast. A dose lowering technique was utilized adhering to the principles of ALARA. COMPARISON: CT chest 10/01/2015, CT abdomen and pelvis of same day FINDINGS: Normal-appearing thyroid. No pathologic adenopathy. Minimal residual thymic tissue of the anterior mediastinum. The heart appears normal in size without pericardial effusion. Thoracic aorta is normal in course and caliber without aneurysm or dissection. The imaged great vessels appear patent. The opacified pulmonary arterial tree is unremarkable. No pneumothorax or pleural effusion. There are no suspicious pulmonary nodules or masses identified. The central airways are patent. Decreased attenuation of the liver suggests hepatic steatosis. Prior cholecystectomy. No acute process of the imaged upper abdomen. Nonobstructing calculi of the interpolar left kidney. Soft tissues and breast parenchyma appear unremarkable. The bones appear to be within normal limits without suspicious lytic or blastic bony lesions. No fracture. IMPRESSION: 1. No acute intrathoracic abnormality identified. 2. No evidence of pathologic adenopathy or pulmonary metastatic disease. Electronically signed by: Tony Castro M.D. 01/10/2018 5:24 PM Dictated Date/Time: 01/10/2018 5:18 PM
== END | disposition home or self-care (01) ==
LOC: C.CTS 16:01
PROVIDERS: ATTEND Obstetrics & Gynecology Gynecologic Oncology
DX: C56.9 Malignant neoplasm of unspecified ovary (principal); Z08 Encounter for follow-up examination after completed treatment for malignant neoplasm

== ENCOUNTER 2019-09-01 04:36 | Inpatient (IN) ==
[2019-09-01] MEDS ORDERED: SODIUM CHLORIDE 0.9% 1000ML 1,000 ML IV ONE (04:46)
[2019-09-01] MEDS ORDERED: METOCLOPRAMIDE HCL INJ 5 MG/ML 2 ML VIAL IV STA (04:46)
[2019-09-01] MEDS ORDERED: KETOROLAC TROMETHAMINE 15 MG/ML VIAL IV STA (04:46)
[2019-09-01] MEDS ORDERED: DiphenhydrAMINE HCL 50 MG/ML VIAL IV STA (04:46)
--- NOTE | 2019-09-01 05:00 | Emergency Department Note ---
History of Present Illness General Chief complaint: Abdominal Pain Stated complaint: ABD PAIN, PANCREATITIS History of Present Illness Maximum Pain Intensity: 8 This 38-year-old with history of pancreatitis presents to the ER complaining of epigastric pain which feels similar to her pancreatitis Location: Epigastric Quality: Painful Severity: Moderate Duration: Past hour Timing: Symptoms started an hour or 2 ago Context: Pain persisted and patient came in Modifying factors: better with nothing; worse with activity Patient had a glass of wine last night. Nothing excessive. She had a migraine and took her Imitrex which resolved the migraine. She woke up this morning with epigastric pain which felt similar to her pancreatitis. Patient had a cholecystectomy, hysterectomy and appendectomy. Patient denies chest pain, dyspnea, fevers, back pain, urinary symptoms. Home Medications Home Medications Medication Instructions Recorded Confirmed Type albuterol sulfate 2 puff INHALATION Q6H PRN 09/01/19 09/01/19 History bupropion HCl 150 mg PO BID 09/01/19 09/01/19 History ibuprofen 600 mg PO Q6H PRN 09/01/19 09/01/19 History levothyroxine 88 mcg PO DAILY 09/01/19 09/01/19 History sumatriptan succinate [Imitrex] 100 mg PO UD PRN 09/01/19 09/01/19 History Allergies Allergy/AdvReac Type Severity Reaction Status Date / Time gluten Allergy Intermediate food Unverified 09/01/19 04:51 intolerance hydromorphone Allergy Intermediate hallucinati Verified 09/01/19 04:51 ons Past Med/Surg History Social History Preferred Language: Polish Communication Ability: Effective Cooker Chip Required: No Beliefs That Will Affect Care: None Current Living Situation: Spouse and Family Current Living Situation Comment: Spouse, 3 children Feels Safe at Home: Yes Safety Concerns: Feels Safe At This Time Smoking Status: Never smoker Hx Alcohol Use: Yes Alcohol type: wine Hx Substance Use: No Review of Systems A total of 10 systems reviewed and were otherwise negative Physical Exam Vital Signs Vital Signs - 24 hr 09/01/19 04:42 09/01/19 06:25 Temperature 36.4 C L Temperature Source Oral Pulse Rate 89 Pulse Rate [Right Finger] 82 Respiratory Rate 20 16 Respiratory Effort / Characteristics Non-Labored Spontaneous Respiratory Depth Normal Normal Blood Pressure 105/75 Blood Pressure [Right Arm] 118/73 Blood Pressure Mean 85 Blood Pressure Mean [Right Arm] 88 Blood Pressure Position [Right Arm] Lying Pulse Oximetry 98 99 Oxygen Delivery Method Room Air Room Air Sepsis Recent Fever Within 48 Hours No Sepsis New/Unexplained Change in Mental Status No Sepsis Action Taken by Nursing No Action Required VITALS: Vitals are noted on the nurse's note and reviewed by myself. Vital signs stable. GENERAL: White female, in no acute distress, nondiaphoretic, well-developed well-nourished. SKIN: Capillary reflex less than 2 seconds. HEENT: Normocephalic. PERRLA. EOMI. Nares patent. Mucous membranes moist. Neck is supple without nuchal rigidity. HEART: Regular rate and rhythm without murmurs gallops or rubs. LUNGS: Clear to auscultation bilaterally without wheezes, rales or rhonchi. No retractions or accessory muscle use. ABDOMEN: Positive bowel sounds x 4. Normal tympanic percussion. Soft, tender to palpation epigastric region, without masses or organomegaly. Noel sign negative. No guarding or rebound tenderness. No CVA tenderness MUSCULOSKELETAL: No gross musculoskeletal defects. NEURO: Patient was alert and oriented to person place and time. Normal sensation to light and sharp touch. No focal neurological deficits. Course Administered Medications Bupropion HCl (Wellbutrin-Sr) 150 mg PO BID [facility] Stop: 10/01/19 08:59 Last Admin: 09/01/19 20:28 Dose: 150 mg Documented by: [id number] Admin: 09/01/19 09:23 Dose: 150 mg Documented by: [id number] Lactated Ringer's (Lr) 1,000 mls @ 150 mls/hr IV .Q6H40M [facility] Stop: 10/01/19 07:19 Last Admin: 09/01/19 20:29 Dose: 150 mls/hr Documented by: [id number] Infusion: 09/01/19 20:29 Dose: 150 mls/hr Documented by: [id number] Infusion: 09/01/19 19:25 Dose: 150 mls/hr Documented by: [id number] Admin: 09/01/19 16:06 Dose: 250 mls/hr Documented by: [id number] Infusion: 09/01/19 16:06 Dose: 250 mls/hr Documented by: [id number] Admin: 09/01/19 12:18 Dose: 250 mls/hr Documented by: [id number] Infusion: 09/01/19 12:18 Dose: 250 mls/hr Documented by: [id number] Infusion: 09/01/19 11:06 Dose: 250 mls/hr Documented by: [id number] Admin: 09/01/19 07:42 Dose: 200 mls/hr Documented by: [id number] Famotidine 20 mg/ Syringe 5 mls @ 2.5 mls/min IV BID [facility] Stop: 10/01/19 08:59 Last Admin: 09/01/19 20:30 Dose: 2.5 mls/min Documented by: [id number] Admin: 09/01/19 09:24 Dose: 2.5 mls/min Documented by: [id number] Ketorolac Tromethamine (Toradol) 15 mg IV Q6H PRN PRN Reason: Pain Stop: 09/06/19 10:59 Last Admin: 09/01/19 16:06 Dose: 15 mg Documented by: [id number] Levothyroxine Sodium (Synthroid) 88 mcg PO DAILYBB [facility] Stop: 10/01/19 07:44 Last Admin: 09/01/19 09:23 Dose: 88 mcg Documented by: [id number] Discontinued Medications Diphenhydramine HCl (Benadryl) 25 mg IV NOW STA Stop: 09/01/19 04:47 Last Admin: 09/01/19 05:13 Dose: 25 mg Documented by: [id number] Sodium Chloride (Nss 1000ml) 1,000 mls @ 999 mls/hr IV .Q1H1M ONE Stop: 09/01/19 05:46 Last Infusion: 09/01/19 06:26 Dose: 0 mls/hr Documented by: [id number] Admin: 09/01/19 05:13 Dose: 999 mls/hr Documented by: [id number] Ketorolac Tromethamine (Toradol) 10 mg IV NOW STA Stop: 09/01/19 04:47 Last Admin: 09/01/19 05:13 Dose: 10 mg Documented by: [id number] Metoclopramide HCl (Reglan) 10 mg IV NOW STA Stop: 09/01/19 04:47 Last Admin: 09/01/19 05:13 Dose: 10 mg Documented by: [id number] Medical Decision Making Medical Records Attestation: I reviewed the patient's medical records. Home Medications Current Medication List: was personally reviewed by me Laboratory Data Attestation: I reviewed the patient's lab results. Result diagrams: 09/01/19 05:00 09/01/19 05:00 Lab Results 09/01/19 09/01/19 09/01/19 Range/Units 05:00 05:00 05:00 WBC 5.15 (4.8-10.8) K/uL RBC 5.04 (4.2-5.4) M/uL Hgb 14.9 (12.0-16.0) g/dL Hct 43.5 (37-47) % MCV 86.3 (80-100) fL MCH 29.6 (25-34) pg MCHC 34.3 (32-36) g/dL RDW Std Deviation 40.4 (36.4-46.3) fL RDW Coeff of Mamie 12.8 (11.5-14.5) % Plt Count 264 (130-400) K/uL MPV 11.1 H (7.4-10.4) fL Immature Gran % (Auto) 0.2 % Neut % (Auto) 53.4 % Lymph % (Auto) 33.0 % [place] % (Auto) 7.8 % Eos % (Auto) 5.2 % Baso % (Auto) 0.4 % Immature Gran # (Auto) 0.01 (0.00-0.02) K/uL Neut # (Auto) 2.75 (1.4-6.5) K/uL Lymph # (Auto) 1.70 (1.2-3.4) K/uL [place] # (Auto) 0.40 (0.11-0.59) K/uL Eos # (Auto) 0.27 (0-0.5) K/uL Baso # (Auto) 0.02 (0-0.2) K/uL Sodium 139 (136-145) mmol/L Potassium 3.7 (3.5-5.1) mmol/L Chloride 105 (98-107) mmol/L Carbon Dioxide 28 (21-32) mmol/L Anion Gap 6.0 (3-11) BUN 14 (7-18) mg/dl Creatinine 1.06 (0.6-1.2) mg/dl Est Cr Clr Drug Dosing 69.0 ml/min Est GFR ( Amer) 76.6 Est GFR (Non-Af Amer) 66.1 BUN/Creatinine Ratio 13.1 (10-20) Glucose 95 (70-99) mg/dl Calcium 9.7 (8.5-10.1) mg/dl Total Bilirubin 0.5 (0.2-1) mg/dl AST 20 (15-37) U/L ALT 19 (12-78) U/L Alkaline Phosphatase 84 (45-117) U/L Total Protein 8.6 H (6.4-8.2) gm/dl Albumin 4.6 (3.4-5.0) gm/dl Globulin 4.0 (2.5-4.0) gm/dl Albumin/Globulin Ratio 1.2 (0.9-2) Lipase 1925 H (73-393) U/L Urine Color Yellow Urine Appearance Clear (Clear) Urine pH 6.0 (4.5-7.5) Ur Specific Snyder 1.006 (1.000-1.030) Urine Protein Negative (Negative) Urine Glucose (UA) Negative (Negative) Urine Ketones Negative (Negative) Urine Blood Negative (Negative) Urine Nitrite Negative (Negative) Urine Bilirubin Negative (Negative) Urine Urobilinogen Negative (Negative) Ur Leukocyte Esterase Trace H (Negative) Urine WBC (Auto) 1-5 (0-5) /hpf Urine RBC (Auto) 0-4 (0-4) /hpf U Hyaline Cast (Auto) 1-5 (0-5) /lpf U Epithel Cells (Auto) >30 H (0-5) /lpf Urine Bacteria (Auto) Negative (Negative) MDM Narrative Prior records/ancillary studies reviewed. Triage Nursing notes reviewed. Additional history obtained from family. The patient's history was concerning for abdominal pain. Differential diagnosis: Etiologies such as appendicitis, diverticulitis, PUD, biliary pathology, UTI, pancreatitis, obstruction, mesenteric ischemia, aortic pathology, infections, inflammatory bowel disease, renal colic, as well as others were entertained. Physical examination findings: As above. ER treatment provided: Toradol, Reglan, Benadryl, IV fluids On reassessment the patient felt better. Diagnostics interpreted by me: The labs revealed no leukocytosis, elevated lipase and patient has a history of recurrent pancreatitis Imaging studies: pt declined imaging Consultation: A consultation was placed with Dr Osborn. The case was discussed and diagnostics were reviewed. The patient was evaluated in the ER for further treatment. Exam and history seem consistent with pancreatitis. This is recurrent for the patient. Medicine was consulted. Patient was hydrated as above medicated as above. She felt somewhat better. Patient had no leukocytosis. She was afebrile and nontoxic. She had an elevated lipase. Patient declined CT imaging. I felt this is reasonable. This is recurrent for the patient. By the evaluation outlined above emergent etiologies such as appendicitis, diverticulitis, PUD, biliary pathology, UTI, pancreatitis, obstruction, mesenteric ischemia, aortic pathology, inflammatory bowel disease, renal colic, as well as others were deemed relatively unlikely. The pt informed about the findings as listed above. All questions were answered and pleased with the treatment. Case reviewed with my attending The chart was completed utilizing [employer] Speech voice recognition software. Grammatical errors, random word insertions, pronoun errors, and incomplete sentences are an occassional consequence of this system due to software limitations, ambient noise, and hardware issues. Any formal questions or concerns about the content, text, or information contained within the body of this dictation should be directly addressed to the physician family service assistant for clarification. Impression & Plan Pancreatitis Discharge Plan Visit Data *Final* Discharge Date/Time: 09/01/19 06:57 Chief Complaint: Abdominal Pain Stated Complaint: ABD PAIN, PANCREATITIS ED Provider: Marie Gonzales ED Midlevel Provider: Tali Mercado Discharge Problem: Pancreatitis Patient Disposition: Admitted As Inpatient Condition: Good Discharge Instructions Interventions: ED Discharge Assessment Last Done: 09/01/19 06:57
[2019-09-01 05:17] LABS: Basophils # (auto) 0.02 K/uL (0-0.2); Basophils % (auto) 0.4 %; Eosinophils # (auto) 0.27 K/uL (0-0.5); Eosinophils % (auto) 5.2 %; Hematocrit (blood only) 43.5 % (37-47); Hemoglobin 14.9 g/dL (12.0-16.0); Immature Granulocytes # (auto) 0.01 K/uL (0.00-0.02); Immature Granulocytes % (auto) 0.2 %; Mean Corpuscular Hemoglobin 29.6 pg (25-34); Mean Corpuscular Hgb Conc 34.3 g/dL (32-36); Mean Corpuscular Volume 86.3 fL (80-100); Mean Platelet Volume 11.1 fL (7.4-10.4); Monocytes % (auto) 7.8 %; Neutrophils # (auto) 2.75 K/uL (1.4-6.5); Neutrophils % (auto) 53.4 %; Platelet Count 264 K/uL (130-400); RDW Coefficient of Variation 12.8 % (11.5-14.5); RDW Standard Deviation 40.4 fL (36.4-46.3); Red Blood Count 5.04 M/uL (4.2-5.4); White Blood Count 5.15 K/uL (4.8-10.8)
[2019-09-01 05:22] LABS: Appearance Urine Clear (Clear); Bacteria Urine Automated Negative (Negative); Bilirubin Urine Negative (Negative); Blood Urine Negative (Negative); Color Urine Yellow; Epithelial Cell Urine Auto >30 /lpf (0-5); Glucose Urine UA Negative (Negative); Ketones Urine Negative (Negative); Leukocyte Esterase Urine Trace (Negative); Nitrite Urine Negative (Negative); Protein Urine Negative (Negative); RBC Urine Automated 0-4 /hpf (0-4); Specific Gravity Urine 1.006 (1.000-1.030); Urobilinogen Urine Negative (Negative)
[2019-09-01 05:36] LABS: Albumin Level 4.6 gm/dl (3.4-5.0); BUN Creatinine Ratio 13.1 (10-20); Calcium 9.7 mg/dl (8.5-10.1); Est GFR (African American) 76.6; Est GFR (Non-African American) 66.1; Potassium 3.7 mmol/L (3.5-5.1)
[2019-09-01 05:41] LABS: Albumin Globulin Ratio 1.2 (0.9-2); Bilirubin,Total 0.5 mg/dl (0.2-1); Total Protein 8.6 gm/dl (6.4-8.2)
[2019-09-01] MEDS ORDERED: SUMAtriptan succinate 100 MG TAB PO PRN (07:20)
[2019-09-01] MEDS ORDERED: ALBUTEROL HFA 8 GM INHALER INH PRN (07:20)
[2019-09-01] MEDS: LACTATED RINGER'S 1,000 ML IV SCH ×4 (07:42→20:29)
--- NOTE | 2019-09-01 09:20 | Gastrointestinal Consultation ---
Date of Consultation September 01, 2019 Assessment & Plan (1) Pancreatitis: Ms. Holder is a 38 yr old female with abdominal pain, mostly likely from acute pancreatitis as evidenced by lipase of 1925. 1. Her request to avoid CT is reasonable. 2. Because LFTs are normal, and she is post cholecystectomy, doubt any bile duct abnormalities. 3. LR at 250/hr. 4. OP EUS in 6-8 weeks. Present on Admission?: Yes History of Present Illness Reason for Consultation: Acute pancreatitis Requesting Physician: Dr. Osborn Attending Physician: Yulia Bullard, DO History of Present Illness Ms. Nova Holder is a 38 yr old female pt of Dr. Pérez with a hx of ovarian cancer, prior acute pancreatitis, S/P cholecystectomy. She presented to the ED early this morning for abdominal pain described as similar to prior episodes of pancreatitis. She requests that she does not undergo CT scanning due to cumulative radiation exposure with hx of ovarian cancer in 2012 and surveillance imaging after. Regarding risks for pancreatitis. She is S/P cholecystectomy. No hx of increased alcohol intake. Never a smoker. No clear etiology of prior episodes of pancreatitis. She drank a little wine last night but typically drinks one about 3 times/week. She also took one Imitrex, but has also used this intermittently for years. Only regular meds are Wellbutrin and Synthroid. On arrival: LFTs are normal, Lipase is elevated at 1925. Pt and her tell me that although her upper abdomen pain persists, her pain is improved compared to when she presented earlier today. She is resting quietly. A review of prior episodes of pancreatitis in 2013 showed mild prominence of the pancreatic tail. In [address] with IV contrast but lipase elevated at 2188. In 2016, no CT was completed and lipase was 2452. A [facility] in [facility], with Dr. Boogie. At that time, he deferred EUS and recommended referral to [facility] pancreas clinic. Allergies Allergy/AdvReac Type Severity Reaction Status Date / Time gluten Allergy Intermediate food Unverified 09/01/19 04:51 intolerance hydromorphone Allergy Intermediate hallucinati Verified 09/01/19 04:51 ons Home Medications Home Medications Medication Instructions Recorded Confirmed Type albuterol sulfate 2 puff INHALATION Q6H PRN 09/01/19 09/01/19 History bupropion HCl 150 mg PO BID 09/01/19 09/01/19 History ibuprofen 600 mg PO Q6H PRN 09/01/19 09/01/19 History levothyroxine 88 mcg PO DAILY 09/01/19 09/01/19 History sumatriptan succinate [Imitrex] 100 mg PO UD PRN 09/01/19 09/01/19 History Patient History Social History Preferred Language: Spanish Communication Ability: Effective Banking Officer Required: No Beliefs That Will Affect Care: None Current Living Situation: Spouse and Family Current Living Situation Comment: Spouse, 3 children Feels Safe at Home: Yes Safety Concerns: Feels Safe At This Time Smoking Status: Never smoker Hx Alcohol Use: Yes Alcohol type: wine Hx Substance Use: No Review of Systems Constitutional: + sweats; no fever and no chills Eyes: no problem reported Ear, Nose, Mouth, Throat: no problem reported Respiratory: no cough, no chest congestion, no dyspnea and no wheezing Cardiovascular: + chest pain with activity; no chest pain, no syncope and no edema Gastrointestinal: as per Subjective / HPI Genitourinary: no problem reported Musculoskeletal: no problem reported Integumentary: no rash and no lesions no jaundice Neurologic: + headache(s) (preceding the pancreatitis); no tremor(s), no syncope and no confusion Psychiatric: no problem reported Physical Exam Constitutional: WD/WN, vitals as above Eyes: PERRL, conjunctivae normal, anicteric sclerae ENMT: external ear and nose normal, oropharynx normal Neck: trachea midline, no thyromegaly Respiratory: normal respiratory effort, lungs clear to auscultation Cardiovascular: RRR, no murmur, no edema Gastrointestinal (Abdomen): Inspection/Auscultation: abdomen not distended Percussion/Palpation: + abdomen tender (across upper abdomen, Rt side and epigastric worse then left side) and abdomen soft; no splenomegaly, no abdominal mass and no ascites Skin: no rashes, warm and dry Neurologic: PERRL, EOMI, accommodation nl, no face palsy, no dysarthria Psychiatric: A+Ox3, euthymic affect Lymphatic: no cervical or axillary lymphadenopathy Results & Data Vital Signs (Past 12 Hours) Vital Signs Temp Pulse Pulse Resp BP BP Pulse Ox 09/01/19 07:05 36.8 C 80 16 93/61 L 98 09/01/19 06:25 82 16 118/73 99 09/01/19 04:42 36.4 C L 89 20 105/75 98 Laboratory Results WBC 5, Hb 14, Hct 43, Platelets 264, Na 1390, K 3.7, BUN 14, Cr 1.06.
[2019-09-01] MEDS: LEVOTHYROXINE SODIUM 88 MCG TABLET PO SCH (09:23)
[2019-09-01] MEDS: BuPROPion SR 150 MG TABCR PO SCH ×2 (09:23→20:28)
[2019-09-01] MEDS: FAMOTIDINE 20 MG in SYRINGE 3 ML IV SCH ×2 (09:24→20:30)
--- NOTE | 2019-09-01 09:53 | History and Physical Report ---
DATE OF ADMISSION: 09/01/2019 CHIEF COMPLAINT: Abdominal pain. HISTORY OF PRESENT ILLNESS: This is a 38-year-old female with past medical history significant for idiopathic chronic pancreatitis, hypothyroidism, history of asthma mild persistent,non seasonal allergic rhinitis, history of migraines, history of ovarian cancer status post hysterectomy with oophorectomy 6 years ago and also status post chemo, currently in remission, presents with severe abdominal pain. The patient had some headache yesterday evening and she took ibuprofen and around 1:00 a.m., she again took Imitrex, and again at 4:00 a.m., she woke up with severe abdominal pain in the epigastric region radiating to back, severe in nature. No nausea, no vomiting. It looks similar to her pancreatis pain. She has history of recurrent pancreatitis in the past, but last was about a couple of years ago. They thought it could be from the diet and she is avoiding gluten diet and did fine until this episode. She had just a glass of wine last night, but otherwise nothing unremarkable. She felt some cold, but denies any fever. Headache is improved now. No dizziness, no blurred vision, no earache, no runny nose, no sore throat, no difficulty swallowing. Otherwise, appetite is okay. No chest pain, no shortness of breath, no cough. Normal bowel and bladder movements. No blood in the stools or black stools. No hematuria . Normal bladder movements. No rash, no swelling in the legs. ALLERGIES: No known drug allergies. PAST MEDICAL HISTORY: As mentioned above. PAST SURGICAL HISTORY: Colonoscopy with biopsy, episiotomy with vaginal repair, exploration of abdomen with removal of left adnexal mass, laparoscopic cholecystectomy, total hysterectomy with bilateral ovaries removed, tonsillectomy, small bowel endoscopy with biopsy. MEDICATIONS: The patient is on levothyroxine 88 mcg daily, bupropion SR 150 mg b.i.d., albuterol inhalation 2 puffs every 6 hours p.r.n., sumatriptan succinate 100 mg p.r.n., migraine. FAMILY HISTORY: Significant for mother had thyroid disorder. Maternal grandmother has heart disorder. Paternal grandmother has arthritis. Aunt has lung cancer. SOCIAL HISTORY: , lives with her and 3 kids. No smoking; alcohol rarely. No drug use. REVIEW OF SYMPTOMS: As per HPI. Rest of review of systems negative. PHYSICAL EXAMINATION: GENERAL: The patient is moderate built, not in acute distress, somewhat drowsy from the medications. VITAL SIGNS: Temperature 36.4, pulse 82, respiratory rate 16, blood pressure 118/73, oxygen 99% on room air. HEENT: No pallor, no icterus. Pupils equal, round, and reactive to light. NECK: No JVD, no neck masses, no carotid bruits. CARDIOVASCULAR: S1, S2 heard, regular rate and rhythm, no murmur, no gallop. RESPIRATORY SYSTEM: Normal AP diameter. No accessory muscle use. No wheezing, no crackles. ABDOMEN: Soft, bowel sounds present. Mild epigastric tenderness, no guarding, no rigidity. No distention. CENTRAL NERVOUS SYSTEM: Drowsy. Obeys simple commands. Moves extremities. EXTREMITIES: No edema, no erythema. LABORATORY DATA: WBC 5.1, hemoglobin 14.9, hematocrit 43.5, platelets 264. Sodium 139, potassium 3.7, chloride 105, bicarbonate 28, BUN 14, creatinine 1.016, serum glucose 95, calcium 9.7, total bilirubin 0.5, AST 20, ALT 19, alkaline phosphatase 84, lipase 1925. Urinalysis negative, trace leukocyte esterase positive. ASSESSMENT AND PLAN: This is a 38-year-old female who presents with recurrent pancreatitis. 1. History of idiopathic recurrent pancreatitis, presents with recurrent pancreatitis, last episode few years back. Etiology unclear. She is status post cholecystectomy. Supposed to follow with GI as outpatient . The patient has has history of ovarian cancer, she has many CAT scans, so she refused to CAT scan in the ER. Lipase is elevated. We will keep her n.p.o., aggressive IV fluids with IV LR 200 mL per hour, IV Toradol p.r.n., and IV Zofran p.r.n. Consult GI for further recommendations.Follow labs. 2. History of hypothyroidism. Continue Synthroid. 3. History of asthma. Continue albuterol p.r.n. 4. Migraine, Imitrex p.r.n. 5. Deep venous thrombosis prophylaxis, sequential compression devices. DISPOSITION: Admit to medical floor. Expect to discharge home and follow with family doctor. Level 1 full code. MTDD
[2019-09-01] MEDS: KETOROLAC TROMETHAMINE 15 MG/ML VIAL IV PRN (16:06)
--- NOTE | 2019-09-01 19:08 | Hospitalist Progress Note ---
Date of Service September 01, 2019 Assessment & Plan (1) Acute pancreatitis: Uncertain etiology. Plan to continue supportive care efforts and advance diet as tolerated with possible DC in am. EUS as outpatient. Levsin per GI started today to help with symptom management. (2) H/O ovarian cancer: Status post chemotherapy and radiation in the past. The patient has been in remission for over 5 years. (3) Hypothyroidism: cont home synthroid (4) Migraine: NSAIDs/APAP/Imitrex PRN (5) DVT prophylaxis: SCDs/ambulation Full Dispo-plan for home when pain resolved and tolerating PO reliably. Yulia Bullard DO [facility] Hospitalist Subjective 38 yo F with epigastric tenderness c/w acute pancreatitis afebrile, NPO at this time. +nausea Review of Systems Review of Systems: All systems reviewed & are unremarkable except as noted in HPI & below Physical Exam Physical Exam: CONSTITUTIONAL: WNWD, vitals as above, generally well- appearing EYES: normal conjunctivae, no scleral icterus ENT: MMM RESPIRATORY: clear to auscultation bilaterally, no crackles, rales or wheezes, normal respiratory effort CARDIOVASCULAR: regular rate and rhythm, S1 and 2 heard without murmurs, gallops or rubs, no JVD, no peripheral edema GASTROINTESTINAL: normal bowel sounds, soft, tender in upper abdomen, ronnell epigastric area. MUSCULOSKELETAL: strength 5/5 throughout, head is normocephalic and atraumatic SKIN: warm and dry NEUROLOGIC: CN 2-12 grossly intact, normal cognition, normal speech, no gross focal deficits. PSYCHIATRIC: alert cooperative and oriented to person, place and time. Results & Data Vital Signs (Past 12 Hours) Vital Signs Temp Pulse Resp BP Pulse Ox 09/01/19 16:04 36 C L 73 16 105/71 100 Laboratory Results Short CBC 09/01/19 Range/Units 05:00 WBC 5.15 (4.8-10.8) K/uL Hgb 14.9 (12.0-16.0) g/dL Hct 43.5 (37-47) % Plt Count 264 (130-400) K/uL BMP 09/01/19 05:00 Sodium 139 Potassium 3.7 Chloride 105 Carbon Dioxide 28 BUN 14 Creatinine 1.06 Glucose 95 Calcium 9.7 Liver Function 09/01/19 Range/Units 05:00 Total Bilirubin 0.5 (0.2-1) mg/dl AST 20 (15-37) U/L ALT 19 (12-78) U/L Alkaline Phosphatase 84 (45-117) U/L Albumin 4.6 (3.4-5.0) gm/dl Urine 09/01/19 Range/Units 05:00 Urine Color Yellow Urine Appearance Clear (Clear) Urine pH 6.0 (4.5-7.5) Ur Specific [place] 1.006 (1.000-1.030) Urine Protein Negative (Negative) Urine Glucose (UA) Negative (Negative) Medications Administered Current Inpatient Medications Acetaminophen (Tylenol) 650 mg PO Q4H PRN PRN Reason: pain/fever Stop: 10/01/19 07:19 Albuterol (Ventolin Hfa) 2 puffs INH Q6H PRN PRN Reason: Shortness Of Breath Or Wheezing Stop: 10/01/19 07:19 Bupropion HCl (Wellbutrin-Sr) 150 mg PO BID [facility] Stop: 10/01/19 08:59 Last Admin: 09/01/19 09:23 Dose: 150 mg Documented by: Lactated Ringer's (Lr) 1,000 mls @ 250 mls/hr IV .Q4H [facility] Stop: 10/01/19 07:19 Last Admin: 09/01/19 16:06 Dose: 250 mls/hr Documented by: Famotidine 20 mg/ Syringe 5 mls @ 2.5 mls/min IV BID [facility] Stop: 10/01/19 08:59 Last Admin: 09/01/19 09:24 Dose: 2.5 mls/min Documented by: Ketorolac Tromethamine (Toradol) 15 mg IV Q6H PRN PRN Reason: Pain Stop: 09/06/19 10:59 Last Admin: 09/01/19 16:06 Dose: 15 mg Documented by: Levothyroxine Sodium (Synthroid) 88 mcg PO DAILYBB [facility] Stop: 10/01/19 07:44 Last Admin: 09/01/19 09:23 Dose: 88 mcg Documented by: Ondansetron HCl (Zofran) 4 mg IV Q6H PRN PRN Reason: Nausea Stop: 10/01/19 07:19 Sumatriptan Succinate (Imitrex) 100 mg PO UD PRN; Protocol PRN Reason: Migraine Headache Stop: 10/01/19 07:19
[2019-09-02] MEDS: LACTATED RINGER'S 1,000 ML IV SCH ×3 (03:04→18:14)
[2019-09-02] MEDS: LEVOTHYROXINE SODIUM 88 MCG TABLET PO SCH (05:32)
[2019-09-02 05:39] LABS: Basophils # (auto) 0.01 K/uL (0-0.2); Basophils % (auto) 0.2 %; Eosinophils # (auto) 0.26 K/uL (0-0.5); Eosinophils % (auto) 6.4 %; Hematocrit (blood only) 34.2 % (37-47); Hemoglobin 11.3 g/dL (12.0-16.0); Immature Granulocytes # (auto) 0.01 K/uL (0.00-0.02); Immature Granulocytes % (auto) 0.2 %; Lymphocytes # (auto) 1.62 K/uL (1.2-3.4); Lymphocytes % (auto) 39.6 %; Mean Corpuscular Hemoglobin 29.4 pg (25-34); Mean Corpuscular Volume 89.1 fL (80-100); Mean Platelet Volume 10.7 fL (7.4-10.4); Monocytes # (auto) 0.42 K/uL (0.11-0.59); Monocytes % (auto) 10.3 %; Neutrophils # (auto) 1.77 K/uL (1.4-6.5); Neutrophils % (auto) 43.3 %; Platelet Count 221 K/uL (130-400); RDW Coefficient of Variation 12.9 % (11.5-14.5); RDW Standard Deviation 41.8 fL (36.4-46.3); Red Blood Count 3.84 M/uL (4.2-5.4); White Blood Count 4.09 K/uL (4.8-10.8)
[2019-09-02 05:58] LABS: BUN Creatinine Ratio 9.3 (10-20); Calcium 8.1 mg/dl (8.5-10.1); Creatinine Clr Calc Pharmacy 74.6 ml/min; Est GFR (African American) 84.2; Est GFR (Non-African American) 72.7; Magnesium 1.8 mg/dl (1.8-2.4); Potassium 3.9 mmol/L (3.5-5.1)
[2019-09-02] MEDS: BuPROPion SR 150 MG TABCR PO SCH ×2 (08:55→20:33)
[2019-09-02] MEDS: FAMOTIDINE 20 MG in SYRINGE 3 ML IV SCH ×2 (08:55→20:32)
[2019-09-02] MEDS: KETOROLAC TROMETHAMINE 15 MG/ML VIAL IV PRN (11:13)
--- NOTE | 2019-09-02 12:36 | Gastroenterology Progress Note ---
Date of Service September 02, 2019 Assessment & Plan (1) Pancreatitis: Ms. Holder is a 38 yr old female with recurrent idiopathic acute pancreatitis as evidenced by lipase of 1925. 1. Agree with decrease in LR rate as Hb decreased from 14->11 showing adequate hydration for tx of pancreatitis. 2. MRCP to verify no bile duct or pancreas abnormalities. Explained to pt that this will not cause any radiation exposure (as pt and were concerned about life time cumulative exposure with hx of ovarian cancer). Pt agrees to this and OP EUS. 3. Will review EPIC records. If genetic testing not completed previously will order. 4. OP EUS in 6-8 weeks. 5. OP GI f/u with Dr. Boogie. 6. GI will review MRCP/MRI results when available, if no bile duct abnormalities, then no further GI IP tests/procedures are planned and no GI contraindication to DC. Present on Admission?: Yes Supervising Physician Co-Signing Physician Notes I performed a history and physical examination of the patient, including specifically on physical exam - soft, nontender abdomen. I have discussed the patient's management with Maria G. Please refer to the nurse practitioner's note for the documented findings and plan of care. Patient with recurrent pancreatitis, this is her 4th episode, unclear etiology, s/p cholecystectomy and no alcohol use. Likely idiopathic, need to r/o hereditery. MRCP today. OP EUS in 4 weeks. Genetic testing for pancreatitis. Advance diet today as her pancreatitis resolved. Recall GI if needed. Subjective Ms. Nova Holder is a 38 yr old female admitted with recurrent acute pancreatitis, now symptoms are nearly resolved (given an hour ago but not since yesterday prior). Able to tolerate clear liquids without pain or nausea. Lipase 1925->132. LFTs normal yesterday. Review of Systems Constitutional: no fever, no chills and no sweats Cardiovascular: no chest pain, no syncope and no edema Gastrointestinal: as per Subjective / HPI Integumentary: no jaundice Neurologic: + headache(s) (preceding the pancreatitis); no tremor(s), no syncope and no confusion Physical Exam Constitutional: WD/WN, vitals as above Eyes: PERRL, conjunctivae normal, anicteric sclerae ENMT: external ear and nose normal, oropharynx normal Neck: trachea midline, no thyromegaly Respiratory: normal respiratory effort, lungs clear to auscultation Cardiovascular: RRR, no murmur, no edema Gastrointestinal (Abdomen): Inspection/Auscultation: abdomen not distended Percussion/Palpation: abdomen soft; abdomen nontender (Very minimal discomfort with deep epigastric palpation only. ), no splenomegaly, no abdominal mass and no ascites Skin: no rashes, warm and dry Neurologic: PERRL, EOMI, accommodation nl, no face palsy, no dysarthria Psychiatric: A+Ox3, euthymic affect Lymphatic: no cervical or axillary lymphadenopathy Results & Data Vital Signs (Past 12 Hours) Vital Signs Temp Pulse Resp BP Pulse Ox 09/02/19 07:15 36.9 C 81 18 103/68 98
[2019-09-02] MEDS: LORazepam 1 MG/2 ML VIAL IV SCH (12:59)
--- NOTE | 2019-09-02 14:36 | Magnetic Resonance Report ---
MRCP CLINICAL HISTORY: Pancreatitis. COMPARISON STUDY: Abdominal CT dated 01/10/2018. MRCP dated 04/10/2011. TECHNIQUE: Abdominal MRCP is performed utilizing various T2-weighted sequences in the axial and coron al planes. IV contrast was not administered for this examination. 3-D reformats are created and asses sed. The examination is modestly compromised by motion artifact. FINDINGS: The gallbladder is surgically absent. There is no intra or extrahepatic biliary ductal dilatation. Th e common bile duct is normal in caliber, measuring up to 5 mm in diameter. No filling defects are nilesh ntified to suggest choledocholithiasis. The pancreatic duct is normal in caliber. The unenhanced liver, spleen, adrenal glands, and kidneys are grossly unremarkable. The pancreatic pa renchyma is normal in appearance. Trace fluid is identified around the pancreatic head and proximal d uodenum. The abdominal aorta is normal in caliber. There is no evidence of bowel obstruction. No pleu ral effusion is identified. The visualized bony structures appear intact. IMPRESSION: 1. Normal MRCP noting status post cholecystectomy. 2. The pancreatic parenchyma is normal in appearance. 3. There is trace fluid identified around the pancreatic head and proximal duodenum. This could be se en in the setting of acute pancreatitis as stated clinically. Correlation with serum lipase levels wi ll be required. Dictated: 09/02/2019 1:58 PM Transcribed: 09/02/2019 2:15 PM Arcelia [id number] [id number] Electronically signed by: Magdy Hdz M.D. 09/02/2019 2:35 PM
--- NOTE | 2019-09-02 18:25 | Hospitalist Progress Note ---
Date of Service September 02, 2019 Assessment & Plan (1) Acute pancreatitis: Uncertain etiology. Plan to continue supportive care efforts and advance diet as tolerated with possible DC in am. EUS as outpatient. (2) H/O ovarian cancer: Status post chemotherapy and radiation in the past. The patient has been in remission for over 5 years. (3) Hypothyroidism: cont home synthroid (4) Migraine: NSAIDs/APAP/Imitrex PRN (5) DVT prophylaxis: SCDs/ambulation Full Dispo-plan for home when pain resolved and tolerating PO reliably. Yulia Bullard DO [facility] Hospitalist Subjective She is improved today but still reports needing pain medication with clear liquids. She held off on any food for lunch during the MRCP which was normal. Results were discussed with her. GI is planning outpatient and scopic ultrasound. Based on the fact that she still needing pain medication with clear liquids will continue clear liquids for dinner and advance to solids in the morning. She otherwise denies any fevers chills or other issues at this time. Review of Systems Review of Systems: All systems reviewed & are unremarkable except as noted in HPI & below Physical Exam Physical Exam: CONSTITUTIONAL: WNWD, vitals as above, generally well- appearing EYES: normal conjunctivae, no scleral icterus ENT: MMM RESPIRATORY: clear to auscultation bilaterally, no crackles, rales or wheezes, normal respiratory effort CARDIOVASCULAR: regular rate and rhythm, S1 and 2 heard without murmurs, gallops or rubs, no JVD, no peripheral edema GASTROINTESTINAL: normal bowel sounds, soft, nontender MUSCULOSKELETAL: strength 5/5 throughout, head is normocephalic and atraumatic SKIN: warm and dry NEUROLOGIC: CN 2-12 grossly intact, normal cognition, normal speech, no gross focal deficits. PSYCHIATRIC: alert cooperative and oriented to person, place and time. Results & Data Vital Signs (Past 12 Hours) Vital Signs Temp Pulse Resp BP Pulse Ox 09/02/19 07:15 36.9 C 81 18 103/68 98
[2019-09-03] MEDS: LACTATED RINGER'S 1,000 ML IV SCH ×4 (00:21→17:42)
[2019-09-03] MEDS: LEVOTHYROXINE SODIUM 88 MCG TABLET PO SCH (06:06)
[2019-09-03] MEDS ORDERED: FAMOTIDINE 20 MG TAB PO PRN (08:49)
[2019-09-03] MEDS: BuPROPion SR 150 MG TABCR PO SCH ×2 (08:50→21:22)
[2019-09-03] MEDS: FAMOTIDINE 20 MG in SYRINGE 3 ML IV SCH (08:50)
[2019-09-03] MEDS: ONDANSETRON INJ 2 MG/ML 2 ML VIAL IV PRN ×3 (10:16→19:43)
[2019-09-03] MEDS: KETOROLAC TROMETHAMINE 15 MG/ML VIAL IV PRN ×2 (10:58→17:45)
[2019-09-03] MEDS: LORazepam 1 MG/2 ML VIAL IV SCH (13:08)
[2019-09-03] MEDS ORDERED: MoRPHine SULFATE 4 MG/ML 1 ML CARP\\VIAL IV PRN (13:38)
[2019-09-03] MEDS: OXYCODONE HCL IR 5 MG TAB (IMMEDIATE RELEASE) PO PRN ×2 (14:00→19:43)
--- NOTE | 2019-09-03 14:23 | Hospitalist Progress Note ---
Date of Service September 03, 2019 Assessment & Plan (1) Acute pancreatitis: Uncertain etiology. She has had recurrent pancreatitis with 2 other episodes in the past. We will support her through this with pain medicines, antiemetics and IV fluids. Once tolerating p.o. we will send home with a follow-up with [facility] gastroenterology in 4 to 6 weeks for an endoscopic ultrasound. This admission MRCP was negative. Of note, despite worsening overnight, this is likely in response to advancing her diet too quickly as opposed to worsening clinical picture from some type of pancreatitis complication or other intra-abdominal process. Will reimplant n.p.o. status and continue to support her throughout the day. If she continues to worsen will consider CT scan of the belly. At this point she is declining a CT scan because of a history of ovarian cancer with chemo and radiation therapy, so was not to allow more radiation that is needed. (2) H/O ovarian cancer: Status post chemotherapy and radiation in the past. The patient has been in remission for over 5 years. (3) Hypothyroidism: cont home synthroid (4) Migraine: h/o migraines. Currently not an issue. (5) DVT prophylaxis: Lovenox Full Dispo-plan for home when pain resolved and tolerating PO reliably. Yulia Bullard, [facility] Hospitalist Subjective Worsened pain today, nausea. 3 episodes of diarrhea including this morning. She was last known to have azithromycin 1 week ago. Afebrile. No other issues at this time. Review of Systems Review of Systems: All systems reviewed & are unremarkable except as noted in HPI & below Physical Exam Physical Exam: CONSTITUTIONAL: WNWD, vitals as above, generally well- appearing EYES: normal conjunctivae, no scleral icterus ENT: MMM RESPIRATORY: clear to auscultation bilaterally, no crackles, rales or wheezes, normal respiratory effort CARDIOVASCULAR: regular rate and rhythm, S1 and 2 heard without murmurs, gallops or rubs, no JVD, no peripheral edema GASTROINTESTINAL: normal bowel sounds, soft, tender in upper abdomen, ronnell epigastric area. MUSCULOSKELETAL: strength 5/5 throughout, head is normocephalic and atraumatic SKIN: warm and dry NEUROLOGIC: CN 2-12 grossly intact, normal cognition, normal speech, no gross focal deficits. PSYCHIATRIC: alert cooperative and oriented to person, place and time. Results & Data Vital Signs (Past 12 Hours) Vital Signs Temp Pulse Resp BP Pulse Ox 09/03/19 09:09 36.7 C 75 18 104/70 97 Medications Administered Current Inpatient Medications Acetaminophen (Tylenol) 650 mg PO Q4H PRN PRN Reason: pain/fever Stop: 10/01/19 07:19 Albuterol (Ventolin Hfa) 2 puffs INH Q6H PRN PRN Reason: Shortness Of Breath Or Wheezing Stop: 10/01/19 07:19 Bupropion HCl (Wellbutrin-Sr) 150 mg PO BID [facility] Stop: 10/01/19 08:59 Last Admin: 09/03/19 08:50 Dose: 150 mg Documented by: Famotidine (Pepcid) 20 mg PO BID PRN PRN Reason: heartburn Stop: 10/03/19 08:59 Lorazepam (Ativan) 1 mg in 2 mls @ 2 mls/min IV TODAY@1300 [facility] Stop: 10/02/19 12:59 Last Admin: 09/03/19 13:08 Dose: Not Given Documented by: Lactated Ringer's (Lr) 1,000 mls @ 150 mls/hr IV .Q6H40M [facility] Stop: 10/03/19 10:29 Last Admin: 09/03/19 10:53 Dose: 150 mls/hr Documented by: Ketorolac Tromethamine (Toradol) 15 mg IV Q6H PRN PRN Reason: Pain Stop: 09/06/19 10:59 Last Admin: 09/03/19 10:58 Dose: 15 mg Documented by: [facility]) [facility] Stop: 10/01/19 07:44 Last Admin: 09/03/19 06:06 Dose: 88 mcg Documented by: Morphine Sulfate (Morphine Sulfate) 4 mg IV Q4H PRN PRN Reason: Severe Pain Stop: 09/17/19 13:37 Ondansetron HCl (Zofran) 4 mg IV Q6H PRN PRN Reason: Nausea Stop: 10/01/19 07:19 Last Admin: 09/03/19 10:16 Dose: 4 mg Documented by: Oxycodone HCl (Roxicodone Immediate Rel) 5 mg PO Q6H PRN PRN Reason: Severe Pain Stop: 09/17/19 13:37 Last Admin: 09/03/19 14:00 Dose: 5 mg Documented by: Sumatriptan Succinate (Imitrex) 100 mg PO UD PRN; Protocol PRN Reason: Migraine Headache Stop: 10/01/19 07:19
[2019-09-03] MEDS ORDERED: ONDANSETRON INJ 2 MG/ML 2 ML VIAL IV STA (14:24)
[2019-09-03] MEDS ORDERED: PROMETHAZINE HCL 25 MG TAB PO PRN (14:24)
[2019-09-03] MEDS: ENOXAPARIN INJ 40 MG/0.4 ML SYR SQ SCH (15:43)
[2019-09-04] MEDS: LACTATED RINGER'S 1,000 ML IV SCH ×2 (00:59→07:58)
[2019-09-04] MEDS: LEVOTHYROXINE SODIUM 88 MCG TABLET PO SCH (05:53)
[2019-09-04] MEDS: ACETAMINOPHEN 325 MG TAB PO PRN ×2 (05:55→14:46)
[2019-09-04 05:58] LABS: Hematocrit (blood only) 35.8 % (37-47); Mean Corpuscular Hemoglobin 29.4 pg (25-34); Mean Corpuscular Hgb Conc 33.5 g/dL (32-36); Mean Corpuscular Volume 87.7 fL (80-100); Mean Platelet Volume 11.6 fL (7.4-10.4); Platelet Count 202 K/uL (130-400); RDW Coefficient of Variation 12.8 % (11.5-14.5); RDW Standard Deviation 41.1 fL (36.4-46.3); Red Blood Count 4.08 M/uL (4.2-5.4); White Blood Count 4.21 K/uL (4.8-10.8)
[2019-09-04 06:30] LABS: Calcium 8.5 mg/dl (8.5-10.1); Creatinine Clr Calc Pharmacy 65.8 ml/min; Est GFR (African American) 72.4; Est GFR (Non-African American) 62.5
[2019-09-04 06:39] LABS: Thyroid Stimulating Hormone 3.03 uIu/ml (0.300-4.500)
[2019-09-04] MEDS: KETOROLAC TROMETHAMINE 15 MG/ML VIAL IV PRN (08:02)
[2019-09-04] MEDS: BuPROPion SR 150 MG TABCR PO SCH ×2 (08:04→20:49)
[2019-09-04] MEDS ORDERED: IBUPROFEN 600 MG TAB PO ONE (09:54)
--- NOTE | 2019-09-04 10:10 | Gastroenterology Progress Note ---
Date of Service September 04, 2019 Assessment & Plan (1) Pancreatitis: Idiopathic pancreatitis. Plan: 1. Because improved today, will try clear liquids po. 2. Slowly advance diet. 3. DC when able to take po w/o pain. 4. OP EUS in 6 weeks. Our office has been notified and will contact her to arrange. Present on Admission?: Yes Supervising Physician Co-Signing Physician Notes I saw and evaluated the patient. She does note having persistent epigastric discomfort after meals without any elevation of the lipase. Recommendations low fat diet Try Levsin 2-3 times daily Outpatient endoscopic ultrasound in 6 weeks Outpatient labs to include [place] mutation and PRSS1 Subjective Ms. Holder is a 38 yr old female pt of Dr. Pérez with a hx of ovarian CA S/P chemo (no radiation) who is experiencing her 4th episode of acute idiopathic pancreatitis. Pain began suddenly, early on 09/01. Though she got significant improvement in the first few hours after arrival, she experienced moderately severe pain yesterday after eating her first regular meal (eggs) and was placed back on bowel rest. Also significant headaches - migraine before arrival, current headache that pt believes may be related to cafiene withdraw. Review of Systems Constitutional: no fever, no chills, no sweats, no body aches, no fatigue and no weakness Eyes: no problem reported Ear, Nose, Mouth, Throat: no problem reported Respiratory: + pain on inspiration (mild, with deep breaths); no cough and no dyspnea Cardiovascular: no chest pain, no palpitations and no edema Gastrointestinal: gassiness, bloating, upper abdomen fullness, upper abdomen pain which is intermittent, currently mild Integumentary: no rash, no lesions and no pruritus no jaundice Neurologic: no unsteadiness and no falls Psychiatric: no behavioral changes and no depression Endocrine: no fatigue Hematologic / Lymphatic: no easy bleeding and no easy bruising Physical Exam Constitutional: WD/WN, vitals as above Eyes: PERRL, conjunctivae normal, anicteric sclerae ENMT: external ear and nose normal, oropharynx normal Neck: trachea midline, no thyromegaly Respiratory: normal respiratory effort, lungs clear to auscultation Cardiovascular: RRR, no murmur, no edema Gastrointestinal (Abdomen): Inspection/Auscultation: abdomen normal to inspection and normal bowel sounds; abdomen not distended Percussion/Palpation: + abdomen tender (moderate epigastric tenderness, mild RUQ and LUQ tenderness) and abdomen soft Skin: no rashes, warm and dry Neurologic: PERRL, EOMI, accommodation nl, no face palsy, no dysarthria Psychiatric: A+Ox3, euthymic affect Results & Data Vital Signs (Past 12 Hours) Vital Signs Temp Pulse Resp BP Pulse Ox 09/04/19 07:10 36.7 C 65 14 103/63 98 09/03/19 23:20 36.5 C 63 16 100/67 98 Diagnostic Findings MRCP 09/02/19: 1. Normal MRCP noting status post cholecystectomy. 2. The pancreatic parenchyma is normal in appearance. 3. There is trace fluid identified around the pancreatic head and proximal duodenum. This could be seen in the setting of acute pancreatitis as stated clinically. Correlation with serum lipase levels will be required.
--- NOTE | 2019-09-04 16:28 | Hospitalist Progress Note ---
Date of Service September 04, 2019 Assessment & Plan (1) Acute pancreatitis: Uncertain etiology. Considerations include but are not limited to sphincter of oddi dysfunction vs recent azithromycin use. This admission MRCP was negative. Plan to continue supportive care efforts and advance diet as tolerated with possible DC in am. EUS as outpatient. Levsin per GI started today to help with symptom management. (2) H/O ovarian cancer: Status post chemotherapy and radiation in the past. The patient has been in remission for over 5 years. (3) Hypothyroidism: cont home synthroid (4) Migraine: h/o migraines with a headache this morning, NSAID therapy given. (5) DVT prophylaxis: Lovenox Full Dispo-plan for home when pain resolved and tolerating PO reliably. Yulia Bullard DO [facility] Hospitalist Subjective Patient reports a feeling of bloating and overall malaise in her abdomen region. Pain is a little bit improved and nausea is not present. She is tolerating clear liquids this morning in the form of hot tea and doing well with this. She is somewhat emotional about the prolonged hospitalization and uncertainty of the etiology of her pancreatitis. Review of Systems Review of Systems: All systems reviewed & are unremarkable except as noted in HPI & below Physical Exam Physical Exam: CONSTITUTIONAL: WNWD, vitals as above, generally well- appearing EYES: normal conjunctivae, no scleral icterus ENT: MMM RESPIRATORY: clear to auscultation bilaterally, no crackles, rales or wheezes, normal respiratory effort CARDIOVASCULAR: regular rate and rhythm, S1 and 2 heard without murmurs, gallops or rubs, no JVD, no peripheral edema GASTROINTESTINAL: normal bowel sounds, soft, tender in upper abdomen, ronnell epigastric area. MUSCULOSKELETAL: strength 5/5 throughout, head is normocephalic and atraumatic SKIN: warm and dry NEUROLOGIC: CN 2-12 grossly intact, normal cognition, normal speech, no gross focal deficits. PSYCHIATRIC: alert cooperative and oriented to person, place and time. Results & Data Vital Signs (Past 12 Hours) Vital Signs Temp Pulse Resp BP Pulse Ox 09/04/19 15:28 36.7 C 71 16 116/78 99 09/04/19 07:10 36.7 C 65 14 103/63 98 Laboratory Results Short CBC 09/04/19 Range/Units 05:03 WBC 4.21 L (4.8-10.8) K/uL Hgb 12.0 (12.0-16.0) g/dL Hct 35.8 L (37-47) % Plt Count 202 (130-400) K/uL BMP 09/04/19 05:03 Sodium 146 H Potassium 4.0 Chloride 111 H Carbon Dioxide 30 BUN 6 L Creatinine 1.11 Glucose 77 Calcium 8.5 Medications Administered Current Inpatient Medications Acetaminophen (Tylenol) 650 mg PO Q4H PRN PRN Reason: pain/fever Stop: 10/01/19 07:19 Last Admin: 09/04/19 14:46 Dose: 650 mg Documented by: Albuterol (Ventolin Hfa) 2 puffs INH Q6H PRN PRN Reason: Shortness Of Breath Or Wheezing Stop: 10/01/19 07:19 Bupropion HCl (Wellbutrin-Sr) 150 mg PO BID [facility] Stop: 10/01/19 08:59 Last Admin: 09/04/19 08:04 Dose: 150 mg Documented by: Enoxaparin Sodium (Lovenox) 40 mg SQ Q24H [facility] Stop: 10/03/19 15:59 Last Admin: 09/03/19 15:43 Dose: 40 mg Documented by: Famotidine (Pepcid) 20 mg PO BID PRN PRN Reason: heartburn Stop: 10/03/19 08:59 Hyoscyamine (Levsin) 0.125 mg PO ACHS [facility] Stop: 10/04/19 16:29 Lactated Ringer's (Lr) 1,000 mls @ 150 mls/hr IV .Q6H40M [facility] Stop: 10/03/19 10:29 Last Infusion: 09/04/19 10:11 Dose: Infused Documented by: Ketorolac Tromethamine (Toradol) 15 mg IV Q6H PRN PRN Reason: Pain Stop: 09/06/19 10:59 Last Admin: 09/04/19 08:02 Dose: 15 mg Documented by: Levothyroxine Sodium (Synthroid) 88 mcg PO DAILYBB [facility] Stop: 10/01/19 07:44 Last Admin: 09/04/19 05:53 Dose: 88 mcg Documented by: Morphine Sulfate (Morphine Sulfate) 4 mg IV Q4H PRN PRN Reason: Severe Pain Stop: 09/17/19 13:37 Ondansetron HCl (Zofran) 4 mg IV Q6H PRN PRN Reason: Nausea Stop: 10/01/19 07:19 Last Admin: 09/03/19 19:43 Dose: 4 mg Documented by: Oxycodone HCl (Roxicodone Immediate Rel) 5 mg PO Q6H PRN PRN Reason: Severe Pain Stop: 09/17/19 13:37 Last Admin: 09/03/19 19:43 Dose: 5 mg Documented by: Promethazine HCl (Phenergan) 25 mg PO Q6H PRN PRN Reason: Nausea And Vomiting Stop: 10/03/19 14:23 Last Admin: 09/03/19 17:45 Dose: 25 mg Documented by: Sumatriptan Succinate (Imitrex) 100 mg PO UD PRN; Protocol PRN Reason: Migraine Headache Stop: 10/01/19 07:19
[2019-09-04] MEDS: ENOXAPARIN INJ 40 MG/0.4 ML SYR SQ SCH (17:19)
[2019-09-04] MEDS: HYOSCYAMINE SULFATE 0.125 MG TAB PO SCH ×2 (17:53→20:48)
[2019-09-05] MEDS: LEVOTHYROXINE SODIUM 88 MCG TABLET PO SCH (06:07)
[2019-09-05] MEDS: ACETAMINOPHEN 325 MG TAB PO PRN (06:08)
[2019-09-05] MEDS ORDERED: GLYCERIN ADULT 12 SUPP/BOX SUPP PR PRN (07:45)
[2019-09-05] MEDS ORDERED: POLYETHYLENE (MIRALAX) 17 GM PACK PO PRN (07:45)
[2019-09-05] MEDS: BuPROPion SR 150 MG TABCR PO SCH (09:03)
[2019-09-05] MEDS: HYOSCYAMINE SULFATE 0.125 MG TAB PO SCH ×2 (09:03→12:08)
--- NOTE | 2019-09-05 11:41 | Discharge Summary ---
Date of Service September 05, 2019 Admission HPI Per Admitting Provider HISTORY OF PRESENT ILLNESS: This is a 38-year-old female with past medical history significant for idiopathic chronic pancreatitis, hypothyroidism, history of asthma mild persistent,non seasonal allergic rhinitis, history of migraines, history of ovarian cancer status post hysterectomy with oophorectomy 6 years ago and also status post chemo, currently in remission, presents with severe abdominal pain. The patient had some headache yesterday evening and she took ibuprofen and around 1:00 a.m., she again took Imitrex, and again at 4:00 a.m., she woke up with severe abdominal pain in the epigastric region radiating to back, severe in nature. No nausea, no vomiting. It looks similar to her pancreatis pain. She has history of recurrent pancreatitis in the past, but last was about a couple of years ago. They thought it could be from the diet and she is avoiding gluten diet and did fine until this episode. She had just a glass of wine last night, but otherwise nothing unremarkable. She felt some cold, but denies any fever. Headache is improved now. No dizziness, no blurred vision, no earache, no runny nose, no sore throat, no difficulty swallowing. Otherwise, appetite is okay. No chest pain, no shortness of breath, no cough. Normal bowel and bladder movements. No blood in the stools or black stools. No hematuria . Normal bladder movements. No rash, no swelling in the legs. Admission Exam Per Admitting Provider PHYSICAL EXAMINATION: GENERAL: The patient is moderate built, not in acute distress, somewhat drowsy from the medications. VITAL SIGNS: Temperature 36.4, pulse 82, respiratory rate 16, blood pressure 118/73, oxygen 99% on room air. HEENT: No pallor, no icterus. Pupils equal, round, and reactive to light. NECK: No JVD, no neck masses, no carotid bruits. CARDIOVASCULAR: S1, S2 heard, regular rate and rhythm, no murmur, no gallop. RESPIRATORY SYSTEM: Normal AP diameter. No accessory muscle use. No wheezing, no crackles. ABDOMEN: Soft, bowel sounds present. Mild epigastric tenderness, no guarding, no rigidity. No distention. CENTRAL NERVOUS SYSTEM: Drowsy. Obeys simple commands. Moves extremities. EXTREMITIES: No edema, no erythema. Principal Diagnosis acute idiopathic pancreatitis Discharge Exam CONSTITUTIONAL: WNWD, vitals as above, generally well-appearing EYES: normal conjunctivae, no scleral icterus ENT: MMM RESPIRATORY: clear to auscultation bilaterally, no crackles, rales or wheezes, normal respiratory effort CARDIOVASCULAR: regular rate and rhythm, S1 and 2 heard without murmurs, gallops or rubs, no JVD, no peripheral edema GASTROINTESTINAL: normal bowel sounds, soft, tender in upper abdomen, ronnell epigastric area, but improved from yesterday MUSCULOSKELETAL: strength 5/5 throughout, head is normocephalic and atraumatic SKIN: warm and dry NEUROLOGIC: CN 2-12 grossly intact, normal cognition, normal speech, no gross focal deficits. PSYCHIATRIC: alert cooperative and oriented to person, place and time. Discharge Data Allergies Allergy/AdvReac Type Severity Reaction Status Date / Time gluten Allergy Intermediate food Unverified 09/01/19 04:51 intolerance hydromorphone Allergy Intermediate hallucinati Verified 09/01/19 04:51 ons Consultations 09/01/19 05:51 ED Decision to Admit Stat 09/01/19 07:20 Consult Gastroenterology Routine Ordered Studies 09/02/19 08:56 MR MRCP Routine Hospital Course (1) Acute pancreatitis: (2) H/O ovarian cancer: 38-year-old female was admitted to the hospitalist service with recurrent idiopathic pancreatitis. She was status post cholecystectomy with a history of ovarian cancer. Lipase was elevated to 1900. CAT scan was refused. She was placed on bowel rest with aggressive IV fluids and given pain control and antiemetics as needed. GI was consulted and recommended an MRCP which was normal. There was trace fluid identified around the pancreatic head and proximal duodenum which can be seen in the acute setting of pancreatitis. An outpatient endoscopic ultrasound was recommended after sufficient time for inflammation to subside. At time of discharge she was hemodynamically stable and afebrile and tolerating p.o. She was mentating and ambulating at baseline and was sent home in stable condition with close primary care follow-up recommended. Total Time Total Time Spent Total Time Spent (In Minutes): 60 Total Time Includes: Examination of the Patient, Discharge Planning, Medication Reconciliation, Communication With Other Providers and Other (arrange followup) Discharge Plan Discharge Items Patient Disposition: Home - Self-Care Reason For Visit: ABDOMINAL PAIN Discharge Diagnosis: acute pancreatitis Condition on Discharge: Good Activity: Resume your previous activity Non-emergency contact: Primary Care Provider Call non-emergency contact if: you have any medication questions, your symptoms worsen, your pain is not controlled, your pain is worsening, your pain is unusual for you, your pain is concerning for you and you have a fever Follow-up/Referrals: Siddhartha Deutsch [Physician] - Freedom Pérez MD [Primary Care Provider] - Diet: Regular Addtl Attending Provider Instructions: Please take all medications as instructed on discharge list below. Please follow-up as instructed with [facility] Gastroenterology for endoscopic ultrasound as instructed. You have the following primary care appointment scheduled to ensure you are still doing well after discharge from the hospital. At this appointment lease review with your physician how the new medications are working for you. 09/09/2019 11:40 AM Freedom Pérez MD [facility] It was a pleasure taking care of you! Please call if you have any questions or problems. You can reach a [facility] hospitalist on duty at [facility] 24 hours a day by calling [phone]. Take care of yourself. Yulia Bullard, [facility] Pending Studies at Discharge: No Stand-Alone Forms: Call Back Authorization, My [facility], Opioid Pain Management, Smoking Cessation Medications and DC Order Prescriptions: New hyoscyamine sulfate 0.125 mg Tablet, Sublingual 0.125 mg PO ACHS 30 Days Qty: 120 RF: 0 hydrocodone-acetaminophen 5-325 mg tablet 1 tab PO Q8H PRN (Reason: severe pain) Qty: 15 RF: 0 ondansetron HCl [Zofran] 4 mg tablet 4 mg PO Q8H PRN (Reason: nausea and vomiting) Qty: 20 RF: 0 Continued bupropion HCl 150 mg tablet sustained-release 12 hr 150 mg PO BID RF: 0 levothyroxine 88 mcg tablet 88 mcg PO DAILY RF: 0 sumatriptan succinate [Imitrex] 100 mg Tablet 100 mg PO UD PRN (Reason: Migraine Headache) RF: 0 ibuprofen 200 mg Tablet 600 mg PO Q6H PRN (Reason: Pain) RF: 0 albuterol sulfate 2 puff 2 puff inhalation Q6H PRN (Reason: Shortness Of Breath Or Wheezing) RF: 0 Discharge Orders: Discharge Order (Routine); Ordered 09/05/19 Ordered By: Yulia Bowden/Other Patient Handouts: Pancreatitis Admission Data Admit Date/Time: 09/01/19 06:40 Attending Provider: Yulia Bullard Admit Provider: Eugene Osobrn Primary Care Provider: Freedom Pérez Other Providers: Eugene Osborn ; Maria G Connor ; Caro Keith ; Ed Sidhu ; Suzi Salazar ; Dakota Boogie ; Siddhartha Deutsch ; Marilu Lai ; Sue Chaves ; Nba Strange ; Reji Weldon ; Herminia Hardy ; Ethel Hernandez ; Shira Arrington ; Jocelyn Marquez ; Denice Gallardo Other Interventions: Discharge Summary Assessment (RN) Last Done: 09/05/19 11:45 DC Date/Time DO NOT enter until pt leaves facility: 09/05/19 13:25
--- NOTE | 2019-09-05 11:44 | Gastroenterology Progress Note ---
Date of Service September 05, 2019 Assessment & Plan (1) Pancreatitis: Recurrent Idiopathic pancreatitis. Plan: 1. Tolerating a low fat, regular consistency diet - continue. 2. No GI contraindication to DC. 3. OP EUS in 6 weeks. Our office has been notified and will contact her to arrange. Supervising Physician Co-Signing Physician Notes I saw and evaluated the patient. She notes that she is feeling slightly i mproved today with use of Levsin. Please advance her diet as tolerated and consider discharge if possible. Please call with any questions or concerns, outpatient endoscopic ultrasound to be arranged Subjective Ms. Nova Holder is a 38-year-old female with a history of ovarian cancer status post chemotherapy (no radiation), who was admitted with acute idiopathic recurrent pancreatitis on 09/01/2019. Lipase over 1999 -> normalized. LFTs have been normal. Patient still with mild epigastric discomfort which is slightly worse after eating and some nausea after eating. No vomiting. Able to ambulate and provide self-care. Review of Systems Review of Systems: ROS: Gen: Denies weakness, fevers, weight loss Eyes: No eye redness, or pain, no recent vision changes Resp: No SOB, no cough Cardio: No palpitations/irregular beats, no chest pain GI: + abdominal pain and nausea; no vomiting : Denies pain on urination Skin: No jaundice, itching or new rashes Respiratory: no problem reported Gastrointestinal: gassiness, bloating, upper abdomen fullness, upper abdomen pain which is intermittent, currently mild Integumentary: no jaundice Physical Exam Constitutional: WD/WN, vitals as above Eyes: PERRL, conjunctivae normal, anicteric sclerae ENMT: external ear and nose normal, oropharynx normal Neck: trachea midline, no thyromegaly Respiratory: normal respiratory effort, lungs clear to auscultation Cardiovascular: RRR, no murmur, no edema Gastrointestinal (Abdomen): Inspection/Auscultation: abdomen normal to inspection and normal bowel sounds; abdomen not distended Percussion/Palpation: + abdomen tender (moderate epigastric tenderness, mild RUQ and LUQ tenderness) and abdomen soft; no splenomegaly, no abdominal mass and no ascites Skin: no rashes, warm and dry Neurologic: PERRL, EOMI, accommodation nl, no face palsy, no dysarthria Psychiatric: A+Ox3, euthymic affect Lymphatic: no cervical or axillary lymphadenopathy Results & Data Vital Signs (Past 12 Hours) Vital Signs Temp Pulse Resp BP Pulse Ox 09/05/19 07:18 36.8 C 68 16 104/71 98
== END 2019-09-05 13:25 | disposition home or self-care (01) | DRG 440 ==
LOC: ED 04:36 → 3W 06:40

== ENCOUNTER 2022-12-17 12:58 | Inpatient (IN) ==
[2022-12-17] MEDS ORDERED: MoRPHine SULFATE 4 MG/ML 1 ML CARP\\VIAL IV STA ×2 (13:20→15:26)
[2022-12-17] MEDS ORDERED: ONDANSETRON INJ 2 MG/ML 2 ML VIAL IV STA (13:20)
[2022-12-17] MEDS ORDERED: SODIUM CHLORIDE 0.9% 1000ML 1,000 ML IV STA (13:20)
--- NOTE | 2022-12-17 13:24 | Emergency Department Note ---
Impression & Plan Vasculitis involving renal artery, Acute right flank pain ED Provider Note Provider: Phoenix Phillip MD DATE OF SERVICE: 12/17/2022 CHIEF COMPLAINT: Right flank and back pain HISTORY OF PRESENT ILLNESS: Patient is a 42-year-old female history of unfortunately ovarian cancer status posttreatment, pancreatitis, prior cholecystectomy, and kidney stones presenting here today with significant right- sided flank pain some radiation to the mid back and right abdomen as well. Denies trauma. Reports present for the last 3 to 4 days. Did see the outpatient clinic and have ultrasound questioning a bit of stool burden. Has been using some enemas and bowel prep without significant bowel movements obtained. Denies urinary symptoms. Denies significant nausea or vomiting. Reports was seen here recently for some shortness of breath has improved after several courses of steroids. No chest pain reported. PAST MEDICAL HISTORY: As noted above MEDICATIONS: Reviewed home medications SOCIAL HISTORY: PHYSICAL EXAM: GENERAL: alert and oriented appears uncomfortable Head: normocephalic and atraumatic EYES: No injection, discharge or icterus. NECK: Trachea midline. ENT: Mucous membranes pink and moist. LUNGS: Airway patent. No retractions or tachypnea HEART: Regular rate and rhythm. ABDOMEN: Soft and non-tender, without guarding or rebound. Patient does however have some mild tenderness of the right flank. SKIN: Acyanotic, warm, dry, without rashes EXTREMITIES: Without swelling, tenderness or deformity NEUROLOGICAL: No focal deficits. No aphasia. No facial droop or slurred speech. Ambulatory. EK bpm normal sinus rhythm. No PVC or PAC. No acute ST segment elevation or depression with QTc of 448. CONTINUOUS CARDIAC MONITORING: was ordered and showed a heart rate of 80s bpm in normal sinus rhythm PDMP was checked without noted issue. Patient's laboratory studies and imaging reviewed. Differential includes Renal colic, UTI, appendicitis, diverticulitis, mesenteric ischemia, aortic pathology, infections, pancreatitis, PUD, biliary pathology, as well as other pathologies. IMPRESSION/MEDICAL DECISION MAKING: Patient with right-sided abdominal pain. Several days. Mild nausea. No trauma reported. History distantly of ovarian cancer as well as pancreatitis. Reports prior cholecystectomy as well sphincterotomy by her report. In outpatient cli lyn[facility] initially started bowel regimen but has not had much movement there. Denies any hematuria. Denies any chest pain or shortness of breath. EKG and troponin sent here without acute findings and low suspicion this is cardiac in nature. Negative . Urinalysis without signs of infection or blood. Negative COVID. No signs of leukocytosis or anemia. No severe electrolyte abnormalities noted with normal renal function. No evidence of transaminitis or pancreatitis on blood work. Treated with morphine here initially for pain. CT abdomen pelvis with IV contrast showed normal enhancement the right kidney but findings concerning for an abnormal right renal artery questioning narrowing or dissection. Discussed with the patient and will send for CT angiogram for further differentiation here. CT angiogram report per radiology shows inflammation around the right renal artery with an irregular beaded appearance different than prior comparison from January 2018 favoring vasculitis. There is normal enhancement without evidence of dissection seen. The renal artery is patent. The other parts of the CT angiogram of the abdominal aorta and its major branches without significant fin dings. Discussed this with [facility] [place]. Plan would be for course of steroids. Did discuss she is recently been on a course of steroids. Given a dose of Solu-Medrol for now. Will need rheumatological work-up. Discussed that she would be at risk to develop aneurysms or stenosis in the future. He states that she can follow-up as an outpatient with vascular surgery. Baseline ESR and CRP ordered. Not significantly elevated. Given her poor pain control we will ask the hospitalist to evaluate. Patient also inquiring about bowel regimen given some constipation issues. Given some Tylenol for pain as well as a slight headache she gets after morphine which is not atypical. Later requested Imitrex which she takes at home for migraines and headaches. Blood pressure not severely elevated. Given 1 dose. DIAGNOSIS: Right flank pain, renal artery vasculitis DISPOSITION: Hospitalist will evaluate Patient was agreeable with this plan. Past Med/Surg History Medical History No pertinent past medical history Social History Smoking Status: Never smoker Hx Alcohol Use: Yes Alcohol type: wine Hx Substance Use: No Preferred Language: Mauritian Communication Ability: Effective Health Systems Analyst Required: No Beliefs That Will Affect Care: None Current Living Situation: Spouse and Family Current Living Situation Comment: Spouse, 3 children Feels Safe at Home: Yes Assistive Devices: None Allergies Allergies Allergy/AdvReac Type Severity Reaction Status Date / Time hydromorphone AdvReac Intermediate hallucinati Verified 11/23/22 02:51 ons Home Meds Home Medications Medication Instructions Recorded Confirmed levothyroxine 88 mcg tablet 88 mcg PO DAILY 09/01/19 12/17/22 sumatriptan succinate 100 mg 100 mg PO DIRECTED PRN Migraine 09/01/19 12/17/22 tablet (Imitrex) Headache albuterol sulfate 90 mcg/actuation 2 puff inhalation DIRECTED PRN 11/23/22 12/17/22 aerosol inhaler Shortness Of Breath Or Wheezing bupropion HCl 150 mg 24 hr tablet, 150 mg PO QAM 11/23/22 12/17/22 extended release escitalopram oxalate 5 mg tablet 5 mg PO QAM 11/23/22 12/17/22 lisdexamfetamine 40 mg capsule 40 mg PO DAILY 11/23/22 12/17/22 (Vyvanse) dextroamphetamine-amphetamine 10 10 mg PO DAILY PRN Other 12/17/22 12/17/22 mg tablet Results & Data (ED) Vital Signs Vital Signs - 24 hr 12/17/22 12:59 12/17/22 13:40 12/17/22 13:41 Temperature 36.8 C Temperature Source Temporal Artery Scan Pulse Rate 87 85 Pulse Rate [Apical] Respiratory Rate 18 16 16 Blood Pressure 109/77 Blood Pressure [Left Arm] Blood Pressure Mean 87 Blood Pressure Mean [Left Arm] Pulse Oximetry 99 96 Oxygen Delivery Method Room Air Sepsis Recent Fever Within 48 Hours No Sepsis New/Unexplained Change in Mental Status No Sepsis Action Taken by Nursing No Action Required 12/17/22 17:06 Temperature Temperature Source Pulse Rate Pulse Rate [Apical] 80 Respiratory Rate 18 Blood Pressure Blood Pressure [Left Arm] 121/87 Blood Pressure Mean Blood Pressure Mean [Left Arm] 98 Pulse Oximetry 98 Oxygen Delivery Method Room Air Sepsis Recent Fever Within 48 Hours Sepsis New/Unexplained Change in Mental Status Sepsis Action Taken by Nursing Laboratory Data 12/17/22 13:16 12/17/22 13:16 Lab Results 12/17/22 12/17/22 12/17/22 Range/Units 13:16 13:16 13:16 WBC 9.27 (4.8-10.8) K/ul RBC 5.17 (4.20-5.40) M/uL Hgb 14.8 (12.0-16.0) g/dl Hct 45.6 (37.0-47.0) % MCV 88.2 (80.0-100.0) fL MCH 28.6 (25.0-34.0) pg MCHC 32.5 (32.0-36.0) g/dL RDW Std Deviation 42.5 (36.4-46.3) fL RDW Coeff of Mamie 13.1 (11.5-14.5) % Plt Count 271 (130-400) K/uL MPV 10.9 (9.4-12.4) fL Immature Gran % (Auto) 0.5 % Neut % (Auto) 53.0 % Lymph % (Auto) 22.4 % Swain % (Auto) 9.1 % Eos % (Auto) 14.6 % Baso % (Auto) 0.4 % Neut # (Auto) 4.91 (1.40-6.50) K/uL Lymph # (Auto) 2.08 (1.2-3.4) K/uL Swain # (Auto) 0.84 H (0.11-0.59) K/uL Eos # (Auto) 1.35 H (0-0.50) K/uL Baso # (Auto) 0.04 (0-0.2) K/uL Immature Gran # (Auto) 0.05 (0.01-0.20) K/uL ESR (0-20) mm/hr PT 10.4 (9.0-12.0) Seconds INR 1.0 (0.9-1.1) Sodium (136-145) mmol/L Potassium (3.5-5.1) mmol/L Chloride (98-107) mmol/L Carbon Dioxide (21-32) mmol/L Anion Gap (3-11) BUN (6-23) mg/dl Creatinine (0.6-1.2) mg/dl Est Cr Clr Drug Dosing ml/min Est GFR ( Amer) ml/min Est GFR (Non-Af Amer) ml/min BUN/Creatinine Ratio (10-20) Glucose (70-99(Fasting)) mg/dl Calcium (8.6-10.3) mg/dl Total Bilirubin (0.2-1.0) mg/dl AST (13-39) U/L ALT (7-52) U/L Alkaline Phosphatase (34-104) U/L Troponin I High Sens (0-14) pg/ml C-Reactive Protein (0-0.5) mg/dl Total Protein (6.0-8.3) gm/dl Albumin (3.4-5.0) gm/dl Globulin (2.5-4.0) gm/dl Albumin/Globulin Ratio (0.9-2) Lipase (11-82) U/L HCG, Qual Negative (Negative) Urine Color Urine Appearance (Clear) Urine pH (4.5-7.5) Ur Specific [place] (1.000-1.030) Urine Protein (Negative) Urine Glucose (UA) (Negative) Urine Ketones (Negative) Urine Blood (Negative) Urine Nitrite (Negative) Urine Bilirubin (Negative) Urine Urobilinogen (Negative) Ur Leukocyte Esterase (Negative) SARS-CoV-2, RNA, NAAT (NEGATIVE) 12/17/22 12/17/22 12/17/22 Range/Units 13:16 13:16 14:55 WBC (4.8-10.8) K/ul RBC (4.20-5.40) M/uL Hgb (12.0-16.0) g/dl Hct (37.0-47.0) % MCV (80.0-100.0) fL MCH (25.0-34.0) pg MCHC (32.0-36.0) g/dL RDW Std Deviation (36.4-46.3) fL RDW Coeff of Mamie (11.5-14.5) % Plt Count (130-400) K/uL MPV (9.4-12.4) fL Immature Gran % (Auto) % Neut % (Auto) % Lymph % (Auto) % Swain % (Auto) % Eos % (Auto) % Baso % (Auto) % Neut # (Auto) (1.40-6.50) K/uL Lymph # (Auto) (1.2-3.4) K/uL Swain # (Auto) (0.11-0.59) K/uL Eos # (Auto) (0-0.50) K/uL Baso # (Auto) (0-0.2) K/uL Immature Gran # (Auto) (0.01-0.20) K/uL ESR 24 H (0-20) mm/hr PT (9.0-12.0) Seconds INR (0.9-1.1) Sodium 140 (136-145) mmol/L Potassium 3.4 L (3.5-5.1) mmol/L Chloride 104 (98-107) mmol/L Carbon Dioxide 30 (21-32) mmol/L Anion Gap 6 (3-11) BUN 10 (6-23) mg/dl Creatinine 0.91 (0.6-1.2) mg/dl Est Cr Clr Drug Dosing 77.5 ml/min Est GFR ( Amer) 89.6 ml/min Est GFR (Non-Af Amer) 77.3 ml/min BUN/Creatinine Ratio 11.0 (10-20) Glucose 82 (70-99(Fasting)) mg/dl Calcium 9.1 (8.6-10.3) mg/dl Total Bilirubin 0.4 (0.2-1.0) mg/dl AST 17 (13-39) U/L ALT 12 (7-52) U/L Alkaline Phosphatase 73 (34-104) U/L Troponin I High Sens 3.3 (0-14) pg/ml C-Reactive Protein < 0.50 (0-0.5) mg/dl Total Protein 7.1 (6.0-8.3) gm/dl Albumin 4.3 (3.4-5.0) gm/dl Globulin 2.8 (2.5-4.0) gm/dl Albumin/Globulin Ratio 1.5 (0.9-2) Lipase 78 (11-82) U/L HCG, Qual (Negative) Urine Color Yellow Urine Appearance Clear (Clear) Urine pH 7.5 (4.5-7.5) Ur Specific [place] 1.003 (1.000-1.030) Urine Protein Negative (Negative) Urine Glucose (UA) Negative (Negative) Urine Ketones Negative (Negative) Urine Blood Negative (Negative) Urine Nitrite Negative (Negative) Urine Bilirubin Negative (Negative) Urine Urobilinogen Negative (Negative) Ur Leukocyte Esterase Negative (Negative) SARS-CoV-2, RNA, NAAT (NEGATIVE) 12/17/22 Range/Units Unknown WBC (4.8-10.8) K/ul RBC (4.20-5.40) M/uL Hgb (12.0-16.0) g/dl Hct (37.0-47.0) % MCV (80.0-100.0) fL MCH (25.0-34.0) pg MCHC (32.0-36.0) g/dL RDW Std Deviation (36.4-46.3) fL RDW Coeff of Mamie (11.5-14.5) % Plt Count (130-400) K/uL MPV (9.4-12.4) fL Immature Gran % (Auto) % Neut % (Auto) % Lymph % (Auto) % Swain % (Auto) % Eos % (Auto) % Baso % (Auto) % Neut # (Auto) (1.40-6.50) K/uL Lymph # (Auto) (1.2-3.4) K/uL Swain # (Auto) (0.11-0.59) K/uL Eos # (Auto) (0-0.50) K/uL Baso # (Auto) (0-0.2) K/uL Immature Gran # (Auto) (0.01-0.20) K/uL ESR (0-20) mm/hr PT (9.0-12.0) Seconds INR (0.9-1.1) Sodium (136-145) mmol/L Potassium (3.5-5.1) mmol/L Chloride (98-107) mmol/L Carbon Dioxide (21-32) mmol/L Anion Gap (3-11) BUN (6-23) mg/dl Creatinine (0.6-1.2) mg/dl Est Cr Clr Drug Dosing ml/min Est GFR ( Amer) ml/min Est GFR (Non-Af Amer) ml/min BUN/Creatinine Ratio (10-20) Glucose (70-99(Fasting)) mg/dl Calcium (8.6-10.3) mg/dl Total Bilirubin (0.2-1.0) mg/dl AST (13-39) U/L ALT (7-52) U/L Alkaline Phosphatase (34-104) U/L Troponin I High Sens (0-14) pg/ml C-Reactive Protein (0-0.5) mg/dl Total Protein (6.0-8.3) gm/dl Albumin (3.4-5.0) gm/dl Globulin (2.5-4.0) gm/dl Albumin/Globulin Ratio (0.9-2) Lipase (11-82) U/L HCG, Qual (Negative) Urine Color Urine Appearance (Clear) Urine pH (4.5-7.5) Ur Specific [place] (1.000-1.030) Urine Protein (Negative) Urine Glucose (UA) (Negative) Urine Ketones (Negative) Urine Blood (Negative) Urine Nitrite (Negative) Urine Bilirubin (Negative) Urine Urobilinogen (Negative) Ur Leukocyte Esterase (Negative) SARS-CoV-2, RNA, NAAT NEGATIVE (NEGATIVE) Administered Medications Discontinued Medications Sodium Chloride (Nss 1000ml) 1,000 mls @ 999 mls/hr IV .Q1H1M STA Stop: 12/17/22 14:20 Last Infusion: 12/17/22 14:36 Dose: 0 mls/hr Documented By: Admin: 12/17/22 13:30 Dose: 999 mls/hr Documented By: DELMA Ioversol (Optiray 350 100ml) 86 ml IV ONCE ONE Stop: 12/17/22 14:37 Last Admin: 12/17/22 14:37 Dose: 86 ml Documented By: ALEAH Ioversol (Optiray 320 500ml) 111 ml IV ONCE ONE Stop: 12/17/22 15:47 Last Admin: 12/17/22 15:48 Dose: 111 ml Documented By: GLADYS Methylprednisolone (Methylprednisolone 125 Mg/2 Ml Vial) 125 mg IV NOW STA Stop: 12/17/22 18:28 Last Admin: 12/17/22 18:42 Dose: 125 mg Documented By: JESUS Morphine Sulfate (Morphine Sulfate 4 Mg/Ml 1 Ml Carp\Vial) 4 mg IV NOW STA Stop: 12/17/22 13:21 Last Admin: 12/17/22 13:30 Dose: 4 mg Documented By: DELMA Morphine Sulfate (Morphine Sulfate 4 Mg/Ml 1 Ml Carp\Vial) 4 mg IV NOW STA Stop: 12/17/22 15:27 Last Admin: 12/17/22 15:34 Dose: 4 mg Documented By: ROWAN Ondansetron HCl (Ondansetron Inj 2 Mg/Ml 2 Ml Vial) 4 mg IV NOW STA Stop: 12/17/22 13:21 Last Admin: 12/17/22 13:31 Dose: 4 mg Documented By: DELMA Imaging Data Radiologist's Impression: Abdomen/Pelvis CT 12/17/22 13:20 CT SCAN OF THE ABDOMEN AND PELVIS WITH IV CONTRAST CLINICAL HISTORY: Right flank pain. COMPARISON STUDY: Abdominal CT dated 01/10/2018. TECHNIQUE: Following the IV administration of 86 cc of Optiray 350, CT scan of the abdomen and pelvis is performed from the lung bases to the proximal femora. Images are reviewed in the axial, sagittal, and coronal planes. IV contrast was administered without complication. A dose lowering technique was utilized adhering to the principles of ALARA. CT DOSE: 320.25 mGy.cm FINDINGS: Lung bases: The heart is normal in size and without pericardial effusion. The lung bases are clear. Liver: The contrast-enhanced liver is normal in size, contour, and attenuation. There is no intrahepatic biliary ductal dilatation. The hepatic veins and portal veins are patent. Gallbladder: Surgically absent noting clips in the gallbladder fossa. Spleen: Normal in size and attenuation. Pancreas: Unremarkable. Adrenal glands: Unremarkable. Kidneys: The contrast enhanced kidneys are normal in size and without hydronephrosis. There is inflammation identified around the right renal artery, best seen on axial image #110. There is apparent focal narrowing of the renal artery. An intraluminal filling defect is questioned on the reformatted images, and a dissection is not excluded. The right kidney enhances normally. There is a 3 mm nonobstructing left renal calculus. No ureteral stone is identified Abdominal vasculature: The abdominal aorta is normal in course and caliber. Bowel: There is mild to moderate colonic fecal retention. No bowel obstruction is seen. The cecum is located in the pelvis. The appendix is not identified and reported surgically absent. Peritoneum: There is no intraperitoneal free air or abdominal ascites. There is a fat-containing umbilical hernia. Lymphadenopathy: None. Pelvic viscera: The bladder is normal as visualized. The uterus is surgically absent. No adnexal lesion is seen. Skeletal structures: No lytic or blastic lesions are seen. IMPRESSION: 1. Abnormal right renal artery with surrounding inflammation and apparent focal narrowing of the vessel. An intraluminal filling defect is questioned on the reformatted images and a dissection could have this appearance. Hemorrhage around the vessel is not excluded. Correlation with a CT angiogram of the abdomen is recommended for further assessment. 2. The right kidney enhances normally. 3. Left-sided nephrolithiasis. 4. Additional findings as above. ACT 112: Negative or not required by law. Electronically signed by: Magdy Hdz M.D. 12/17/2022 3:16 PM Abdomen/Pelvis CTA 12/17/22 15:26 CT ANGIOGRAM OF THE ABDOMEN AND PELVIS CLINICAL HISTORY: Abnormal right renal artery. Right flank pain COMPARISON STUDY: Abdominal CT scan performed earlier the same day 12/17/2022. TECHNIQUE: Following the IV administration of 111 cc of Optiray 320, CT angiogram of the abdomen and pelvis was performed from the lung bases the proximal femora. Images are reviewed in the axial, sagittal, and coronal planes. 3-D MIPS images are created and assessed. IV contrast was administered without complication. A dose lowering technique was utilized adhering to the principles of ALARA. CT DOSE: 355.88 mGy.cm FINDINGS: Lower chest: The heart is normal in size and without pericardial effusion. The lung bases are clear noting mild dependent atelectasis. Liver: The contrast-enhanced liver is normal in size, contour, and attenuation. There is no intrahepatic biliary ductal dilatation. The main portal vein is patent. Gallbladder: Surgically absent noting clips in the gallbladder fossa. Spleen: Normal in size and attenuation noting heterogeneous arterial phase en hancement. Pancreas: Unremarkable. Adrenal glands: Unremarkable. Kidneys: The contrast enhanced kidneys are normal in size and without hydronephrosis. Excreted IV contrast fills the renal collecting systems. The kidneys enhance symmetrically. Abdominal aorta and iliac arteries: The abdominal aorta is normal in course and caliber. The iliac arteries are widely patent bilaterally. Major branches of the abdominal aorta: The celiac trunk, superior mesenteric, and inferior mesenteric arteries are widely patent. Hepatic arterial anatomy is conventional. The splenic artery is patent. There is a single right renal artery and 2 left renal arteries. The left renal arteries are widely patent. The Main right renal artery is widely patent. No dissection is seen. There is inflammation identified around the right renal artery, and the vessel has an irregular/beaded appearance. There is mild narrowing of an inferior segmental right renal artery branch seen on axial image #127. Bowel: Mild/moderate fecal retention is seen throughout the colon. No bowel obstruction is identified. The appendix is not identified and reported surgically absent. Peritoneum: There is no intraperitoneal free air or abdominal ascites. Lymphadenopathy: None. Pelvic viscera: The bladder is normal as visualized, and filled with excreted IV contrast. The uterus is surgically absent. No adnexal lesion is seen. Skeletal structures: No destructive bony lesions are seen. IMPRESSION: 1. Again seen is inflammation around the right renal artery which has an irregular/beaded appearance. This represent a significant change from the 01/10/2018 examination and the appearance favors a vasculitis. Clinical correlation will be essential. 2. The right renal artery is patent and there is normal contrast-enhancement of the right kidney. No dissection is seen. 3. Otherwise normal CT angiogram of the abdominal aorta and its major branches. No additional similar appearing foci of perivascular inflammation are identified. 4. Additional findings as above. ACT 112: Negative or not required by law. Electronically signed by: Magdy Hdz M.D. 12/17/2022 4:25 PM Discharge Plan Visit Data Chief Complaint: Flank Pain Stated Complaint: BACK PAIN ED Provider: Phoenix Phillip Discharge Problem: Vasculitis involving renal artery, Acute right flank pain Patient Disposition: Being Evaluated by Hospitalist Forms Stand Alone Forms: My [facility] Prescriptions Prescriptions: No Action levothyroxine 88 mcg tablet 88 mcg PO DAILY sumatriptan succinate [Imitrex] 100 mg Tablet 100 mg PO DIRECTED PRN (Reason: Migraine Headache) albuterol sulfate 90 mcg/actuation Hfa Aerosol Inhaler 2 puff INHALATION DIRECTED PRN (Reason: Shortness Of Breath Or Wheezing) bupropion HCl 150 mg tablet extended release 24 hr 150 mg PO QAM escitalopram oxalate 5 mg tablet 5 mg PO QAM Vyvanse 40 mg capsule 40 mg PO DAILY dextroamphetamine-amphetamine 10 mg tablet 10 mg PO DAILY PRN (Reason: Other) Rx Instructions: Sometimes at Noon if needed Referrals Referrals: Elizabeth Orlando MD [Primary Care Provider] -
[2022-12-17 13:33] LABS: Basophils # (auto) 0.04 K/uL (0-0.2); Basophils % (auto) 0.4 %; Eosinophils # (auto) 1.35 K/uL (0-0.50); Eosinophils % (auto) 14.6 %; Hematocrit (blood only) 45.6 % (37.0-47.0); Hemoglobin 14.8 g/dl (12.0-16.0); Immature Granulocytes # (auto) 0.05 K/uL (0.01-0.20); Immature Granulocytes % (auto) 0.5 %; Lymphocytes # (auto) 2.08 K/uL (1.2-3.4); Lymphocytes % (auto) 22.4 %; Mean Corpuscular Hemoglobin 28.6 pg (25.0-34.0); Mean Corpuscular Hgb Conc 32.5 g/dL (32.0-36.0); Mean Corpuscular Volume 88.2 fL (80.0-100.0); Mean Platelet Volume 10.9 fL (9.4-12.4); Monocytes # (auto) 0.84 K/uL (0.11-0.59); Monocytes % (auto) 9.1 %; Neutrophils # (auto) 4.91 K/uL (1.40-6.50); Platelet Count 271 K/uL (130-400); RDW Coefficient of Variation 13.1 % (11.5-14.5); RDW Standard Deviation 42.5 fL (36.4-46.3); Red Blood Count 5.17 M/uL (4.20-5.40); White Blood Count 9.27 K/ul (4.8-10.8)
[2022-12-17 13:51] LABS: Pregnancy Test, Serum Negative (Negative)
[2022-12-17 13:52] LABS: Alanine Aminotransferase 12 U/L (7-52); Albumin Globulin Ratio 1.5 (0.9-2); Albumin Level 4.3 gm/dl (3.4-5.0); Alkaline Phosphatase 73 U/L (34-104); Anion Gap 6 (3-11); Aspartate Aminotransferase 17 U/L (13-39); Bilirubin,Total 0.4 mg/dl (0.2-1.0); Blood Urea Nitrogen 10 mg/dl (6-23); Calcium 9.1 mg/dl (8.6-10.3); Carbon Dioxide 30 mmol/L (21-32); Chloride 104 mmol/L (98-107); Creatinine Clr Calc Pharmacy 77.5 ml/min; Est GFR (African American) 89.6 ml/min; Est GFR (Non-African American) 77.3 ml/min; Globulin 2.8 gm/dl (2.5-4.0); Glucose 82 mg/dl (70-99(Fasting)); Lipase 78 U/L (11-82); Potassium 3.4 mmol/L (3.5-5.1); Sodium 140 mmol/L (136-145); Total Protein 7.1 gm/dl (6.0-8.3)
[2022-12-17 13:59] LABS: Troponin I High Sensitivity 3.3 pg/ml (0-14)
[2022-12-17 14:10] LABS: Prothrombin Time 10.4 Seconds (9.0-12.0)
[2022-12-17] MEDS ORDERED: OPTIRAY 350 100ml IV ONE (14:36)
--- NOTE | 2022-12-17 15:18 | CT Scan Report ---
CT SCAN OF THE ABDOMEN AND PELVIS WITH IV CONTRAST CLINICAL HISTORY: Right flank pain. COMPARISON STUDY: Abdominal CT dated 01/10/2018. TECHNIQUE: Following the IV administration of 86 cc of Optiray 350, CT scan of the abdomen and pelvi s is performed from the lung bases to the proximal femora. Images are reviewed in the axial, sagittal , and coronal planes. IV contrast was administered without complication. A dose lowering technique wa s utilized adhering to the principles of ALARA. CT DOSE: 320.25 mGy.cm FINDINGS: Lung bases: The heart is normal in size and without pericardial effusion. The lung bases are clear. Liver: The contrast-enhanced liver is normal in size, contour, and attenuation. There is no intrahepa tic biliary ductal dilatation. The hepatic veins and portal veins are patent. Gallbladder: Surgically absent noting clips in the gallbladder fossa. Spleen: Normal in size and attenuation. Pancreas: Unremarkable. Adrenal glands: Unremarkable. Kidneys: The contrast enhanced kidneys are normal in size and without hydronephrosis. There is inflam mation identified around the right renal artery, best seen on axial image #110. There is apparent foc al narrowing of the renal artery. An intraluminal filling defect is questioned on the reformatted octavio ges, and a dissection is not excluded. The right kidney enhances normally. There is a 3 mm nonobstruc ting left renal calculus. No ureteral stone is identified Abdominal vasculature: The abdominal aorta is normal in course and caliber. Bowel: There is mild to moderate colonic fecal retention. No bowel obstruction is seen. The cecum is located in the pelvis. The appendix is not identified and reported surgically absent. Peritoneum: There is no intraperitoneal free air or abdominal ascites. There is a fat-containing umbi lical hernia. Lymphadenopathy: None. Pelvic viscera: The bladder is normal as visualized. The uterus is surgically absent. No adnexal lesi on is seen. Skeletal structures: No lytic or blastic lesions are seen. IMPRESSION: 1. Abnormal right renal artery with surrounding inflammation and apparent focal narrowing of the vess el. An intraluminal filling defect is questioned on the reformatted images and a dissection could hav e this appearance. Hemorrhage around the vessel is not excluded. Correlation with a CT angiogram of t he abdomen is recommended for further assessment. 2. The right kidney enhances normally. 3. Left-sided nephrolithiasis. 4. Additional findings as above. ACT 112: Negative or not required by law. Electronically signed by: Magdy Hdz M.D. 12/17/2022 3:16 PM
[2022-12-17 15:25] LABS: Appearance Urine Clear (Clear); Bilirubin Urine Negative (Negative); Blood Urine Negative (Negative); Color Urine Yellow; Glucose Urine UA Negative (Negative); Ketones Urine Negative (Negative); Leukocyte Esterase Urine Negative (Negative); Nitrite Urine Negative (Negative); Protein Urine Negative (Negative); Specific Gravity Urine 1.003 (1.000-1.030); Urobilinogen Urine Negative (Negative); pH Urine 7.5 (4.5-7.5)
[2022-12-17] MEDS ORDERED: OPTIRAY 320 500ml IV ONE (15:46)
--- NOTE | 2022-12-17 16:26 | CT Scan Report ---
CT ANGIOGRAM OF THE ABDOMEN AND PELVIS CLINICAL HISTORY: Abnormal right renal artery. Right flank pain COMPARISON STUDY: Abdominal CT scan performed earlier the same day 12/17/2022. TECHNIQUE: Following the IV administration of 111 cc of Optiray 320, CT angiogram of the abdomen and pelvis was performed from the lung bases the proximal femora. Images are reviewed in the axial, sagit emily, and coronal planes. 3-D MIPS images are created and assessed. IV contrast was administered witho ut complication. A dose lowering technique was utilized adhering to the principles of ALARA. CT DOSE: 355.88 mGy.cm FINDINGS: Lower chest: The heart is normal in size and without pericardial effusion. The lung bases are clear n oting mild dependent atelectasis. Liver: The contrast-enhanced liver is normal in size, contour, and attenuation. There is no intrahepa tic biliary ductal dilatation. The main portal vein is patent. Gallbladder: Surgically absent noting clips in the gallbladder fossa. Spleen: Normal in size and attenuation noting heterogeneous arterial phase enhancement. Pancreas: Unremarkable. Adrenal glands: Unremarkable. Kidneys: The contrast enhanced kidneys are normal in size and without hydronephrosis. Excreted IV con trast fills the renal collecting systems. The kidneys enhance symmetrically. Abdominal aorta and iliac arteries: The abdominal aorta is normal in course and caliber. The iliac ar teries are widely patent bilaterally. Major branches of the abdominal aorta: The celiac trunk, superior mesenteric, and inferior mesenteric arteries are widely patent. Hepatic arterial anatomy is conventional. The splenic artery is patent. There is a single right renal artery and 2 left renal arteries. The left renal arteries are widely p atent. The Main right renal artery is widely patent. No dissection is seen. There is inflammation nilesh ntified around the right renal artery, and the vessel has an irregular/beaded appearance. There is mi ld narrowing of an inferior segmental right renal artery branch seen on axial image #127. Bowel: Mild/moderate fecal retention is seen throughout the colon. No bowel obstruction is identified . The appendix is not identified and reported surgically absent. Peritoneum: There is no intraperitoneal free air or abdominal ascites. Lymphadenopathy: None. Pelvic viscera: The bladder is normal as visualized, and filled with excreted IV contrast. The uterus is surgically absent. No adnexal lesion is seen. Skeletal structures: No destructive bony lesions are seen. IMPRESSION: 1. Again seen is inflammation around the right renal artery which has an irregular/beaded appearance. This represent a significant change from the 01/10/2018 examination and the appearance favors a vascu litis. Clinical correlation will be essential. 2. The right renal artery is patent and there is normal contrast-enhancement of the right kidney. No dissection is seen. 3. Otherwise normal CT angiogram of the abdominal aorta and its major branches. No additional similar appearing foci of perivascular inflammation are identified. 4. Additional findings as above. ACT 112: Negative or not required by law. Electronically signed by: Magdy Hdz M.D. 12/17/2022 4:25 PM
[2022-12-17] MEDS ORDERED: methylPREDNISolone 125 MG/2 ML VIAL IV STA (18:27)
[2022-12-17] MEDS ORDERED: ACETAMINOPHEN 500 MG TAB PO STA (18:36)
--- NOTE | 2022-12-17 18:50 | History & Physical Report ---
Date of Service December 17, 2022 Assessment & Plan (1) Vasculitis involving renal artery: Plan: -Start prednisone 30mg BID -ESR elevated at 20, CRP neg -check viral hepatitis panel, FRANCISCO, ANCA, cryoglobulin -Consult Rheumatology (2) Acute right flank pain: Plan: -related to above -morphine 2mg IV Q 4 PRN (3) Migraine: Plan: -triptan PRN (4) Hypothyroidism: Plan: -synthroid -check TSH (5) H/O ovarian cancer: (6) DVT prophylaxis: Plan: SQ Heparin Plan Severe constipation -Lactulose BID, glycerin suppository PRN Code status Full Dispo Med/surg History of Present Illness Chief Complaint: right flank pain Primary Care Provider: Elizabeth Orlando MD Ms Nova Holder is a 42 year old female with history of ovarian cancer status post hysterectomy 10 years ago, mild persistent asthma, hypothyroidism, idiopathic chronic pancreatitis, migraine presents today with right flank pain for past several days. She saw her PCP in the office for this 3 days ago and had a urinalysis/urine culture and X ray of her abdomen. X ray of her abdomen showed stool impaction throughout the cecum, proximal ascending colon as well as descending colon and a few punctate non obstructive left kidney stone. Her pain persists so she came to the ER today. She had a CT A/P here which showed right renal artery inflammation so she had a follow up CTA Abd/pelvis which showed renal artery vasculitis. Case was discussed by ER provider [place] [facility] [place] it was recommended that she have a rheumatologic workup, initiation of steroids and can follow up with them in the office. Patient denies fever/chills, no muscle aches, no joint pain or swelling, no weight loss, no chest pain, no dysuria or difficulty urinating, no dysphagia or difficulty swallowing She is having severe constipation for the past 1 month which has worsened in past several days. She has tried miralax, colace, enema and suppositories with little relieve. Had 1 small hard BM a couple days ago. In the past several months, she has received several rounds of steroids for "bronchitis" but currently does not have cough or shortness of breath ER course- solumedrol 125mg IV, morphine 4mg IV x 2, zofran 4mg, NSS 1L FHx- Zaira's (mother) PSHx- hysterectomy, cholecystectomy Allergies Allergy/AdvReac Type Severity Reaction Status Date / Time hydromorphone AdvReac Intermediate hallucinati Verified 11/23/22 02:51 ons Home Medications Medication Instructions Recorded Confirmed Type levothyroxine 88 mcg tablet 88 mcg PO DAILY 09/01/19 12/17/22 History sumatriptan succinate 100 mg 100 mg PO DIRECTED PRN Migraine 09/01/19 12/17/22 History tablet (Imitrex) Headache albuterol sulfate 90 mcg/actuation 2 puff inhalation DIRECTED PRN 11/23/22 12/17/22 History aerosol inhaler Shortness Of Breath Or Wheezing bupropion HCl 150 mg 24 hr tablet, 150 mg PO QAM 11/23/22 12/17/22 History extended release escitalopram oxalate 5 mg tablet 5 mg PO QAM 11/23/22 12/17/22 History lisdexamfetamine 40 mg capsule 40 mg PO DAILY 11/23/22 12/17/22 History (Vyvanse) dextroamphetamine-amphetamine 10 10 mg PO DAILY PRN Other 12/17/22 12/17/22 History mg tablet Past Med/Surg History Medical History No pertinent past medical history Social History Smoking Status: Never smoker Hx Alcohol Use: Yes Alcohol type: wine Hx Substance Use: No Preferred Language: Urdu Communication Ability: Effective Electric Welder Required: No Beliefs That Will Affect Care: None Current Living Situation: Spouse and Family Current Living Situation Comment: Spouse, 3 children Feels Safe at Home: Yes Assistive Devices: None Review of Systems Review of Systems: As above in HPI, remaining ROS otherwise negative Physical Exam Physical Exam: Appears stated age, well, no acute distress ENMT: normocephalic, atraumatic, mucous membrane moist Respiratory: breathing comfortably on room air, no wheezing/rhonchi/rales Cardiovascular: regular rate and rhythm, no murmurs/rubs/gallops Gastrointestinal (Abdomen): soft, non tender, non distended Musculoskeletal: no joint swelling, no leg swelling, no cyanosis or clubbing Skin: no rash, no ulcer, no bruising noted on extremities Neurologic: awake, alert, spontaneously moving extremities Psychiatric: affect normal, speech linear, non pressured Results & Data Results & Data Vital Signs (Past 12 Hours) Vital Signs Temp Pulse Pulse Resp BP BP Pulse Ox 12/17/22 17:06 80 18 121/87 98 12/17/22 13:41 16 12/17/22 13:40 85 16 96 12/17/22 12:59 36.8 C 87 18 109/77 99 O2 Del Method 12/17/22 17:06 Room Air 12/17/22 13:41 12/17/22 13:40 12/17/22 12:59 Room Air
[2022-12-17 18:55] LABS: C Reactive Protein < 0.50 mg/dl (0-0.5)
[2022-12-17] MEDS ORDERED: SUMAtriptan succinate 100 MG TAB PO ONE (19:00)
[2022-12-17] MEDS ORDERED: GLYCERIN ADULT 12 SUPP/BOX SUPP PR PRN (19:50)
[2022-12-17] MEDS ORDERED: MoRPHine SULFATE 2 MG/ML CARP IV PRN (19:50)
[2022-12-17] MEDS ORDERED: SUMAtriptan succinate 100 MG TAB PO PRN (21:33)
[2022-12-17] MEDS ORDERED: ALBUTEROL HFA 8 GM INHALER INH PRN (21:33)
[2022-12-17] MEDS ORDERED: AMPHETAMINE ASP/SULF/DEXTRAMPH 10 MG TAB PO PRN ×2 (21:33→21:39)
[2022-12-17] MEDS: ACETAMINOPHEN 325 MG TAB PO PRN (21:56)
[2022-12-17] MEDS: LACTULOSE SYRUP 20 GM/30 ML UDC PO SCH (22:38)
[2022-12-18] MEDS: LEVOTHYROXINE SODIUM 88 MCG TABLET PO SCH ×2 (06:21→06:41)
[2022-12-18] MEDS: oxyCODONE HCL IR 5 MG TAB (IMMEDIATE RELEASE) PO PRN ×3 (06:41→18:52)
[2022-12-18 06:49] LABS: Hematocrit (blood only) 41.7 % (37.0-47.0); Mean Corpuscular Hemoglobin 28.8 pg (25.0-34.0); Mean Corpuscular Hgb Conc 33.6 g/dL (32.0-36.0); Mean Corpuscular Volume 85.8 fL (80.0-100.0); Mean Platelet Volume 11.2 fL (9.4-12.4); Platelet Count 266 K/uL (130-400); RDW Coefficient of Variation 12.9 % (11.5-14.5); RDW Standard Deviation 39.9 fL (36.4-46.3); Red Blood Count 4.86 M/uL (4.20-5.40); White Blood Count 9.55 K/ul (4.8-10.8)
[2022-12-18 07:33] LABS: BUN Creatinine Ratio 11.1 (10-20); Calcium 8.9 mg/dl (8.6-10.3); Creatinine Clr Calc Pharmacy 78.4 ml/min; Est GFR (African American) 90.8 ml/min; Est GFR (Non-African American) 78.3 ml/min; Potassium 4.3 mmol/L (3.5-5.1)
[2022-12-18] MEDS: predniSONE 10 MG TABLET PO SCH ×2 (08:31→19:52)
[2022-12-18] MEDS: LACTULOSE SYRUP 20 GM/30 ML UDC PO SCH ×2 (08:31→19:52)
[2022-12-18] MEDS: PANTOprazole 40 MG TAB PO SCH (08:32)
[2022-12-18] MEDS: buPROPion XL 150 MG TABCR PO SCH (08:32)
[2022-12-18] MEDS: ESCITALOPRAM OXALATE 10 MG TAB PO SCH (08:32)
[2022-12-18] MEDS: ACETAMINOPHEN 325 MG TAB PO PRN ×2 (11:29→17:14)
[2022-12-18] MEDS ORDERED: diphenhydrAMINE Capsule 25 MG CAP PO PRN (13:08)
[2022-12-18] MEDS ORDERED: DOCUSATE SODIUM/SENNA 50/8.6MG TAB PO ONE (13:15)
[2022-12-18] MEDS: LISDEXAMFETAMINE PO SCH (14:24)
--- NOTE | 2022-12-18 14:28 | Hospitalist Progress Note ---
Date of Service December 18, 2022 Assessment & Plan (1) Vasculitis involving renal artery: Plan: This is a 42-year-old female who has a significant past medical history of ovarian cancer, idiopathic chronic pancreatitis, hypothyroidism and mild persistent asthma who presents to ED on 12/17/2022 secondary to right flank pain. Imaging at ED concerning for right renal artery vasculitis. CT a/P: IMPRESSION: 1. Again seen is inflammation around the right renal artery which has an irregular/beaded appearance. This represent a significant change from the 01/10/2018 examination and the appearance favors a vasculitis. Clinical correlation will be essential.2. The right renal artery is patent and there is normal contrast-enhancement of the right kidney. No dissection is seen.. Otherwise normal CT angiogram of the abdominal aorta and its major branches. No additional similar appearing foci of perivascular inflammation are identified. 4. Additional findings as above. -Rheum consulted - awaiting formal consult -Start prednisone 30mg BID -ESR elevated at 20, CRP neg -check viral hepatitis panel, FRANCISCO, ANCA, cryoglobulin -receiving Tylenol and oxycodone for pain relief -ED talked to [facility] vascular who recommended inpt rheum work up and can follow up with vascular in OP setting (2) Acute right flank pain: Plan: -related to above -morphine 2mg IV Q 4 PRN, PRN oxy (3) Migraine: Plan: -triptan PRN (4) Hypothyroidism: Plan: continue Synthroid tsh normal (5) H/O ovarian cancer: (6) DVT prophylaxis: Plan: SQ Heparin Plan Severe constipation -ct on admission shows mod fecal retention -Lactulose BID, add senna S +BS, no abd pain Code status Full Dispo Med/surg A total of 45 minutes was spent with greater than 50% of that time personally viewing all current laboratory work and diagnostic imaging studies obtained in the ED. Additionally, I was able to view the patients past medication reconciliation and history with direct visualization in the patients chart. Included in the time above, a portion of that time was spent assessing the patient while discussing and collaborating with specialists, if necessary, and making medical decision making on treatment plan. All of the above was collaborated with Dr. Méndez. Please see addendum for further details. Admission and Anticipated Discharge Date Admission Date: December 17, 2022 Supervising Physician Co-Signing Physician Notes Attending addendum: The patient was seen and examined in medical floor She has been complaining of left-sided abdominal pain for the last 2 to 3 days Noted to be constipated and CTA did show short segment of right renal artery to be irregular and is suspected of vasculitis Denies any other significant symptoms with it except history of COVID last year and history of CT of the ovary status post chemo years before No other associated symptoms of joint pain, eye problem, rash or diarrhea but she has constipation for the last few days On examination No apparent distress at rest Hemodynamically stable Benign examination of the abdomen with normal bowel sound Labs and imaging studies reviewed. Medications reviewed personally Awaiting rheumatology evaluation We will continue with current management for possible vasculitis involving the renal artery on the right side Agree with assessment and plan as outlined above by Margot Méndez Subjective Patient was seen and examined in room 354-2. Follow up Vasculitis. R flank pain continues, but improved. Also has no BM in 4 days. Denies f/c/s, chest pain, sob, n/v/d, abd pain. Passing flatus. Review of Systems Review of Systems: All systems reviewed & are unremarkable except as noted in HPI & below Physical Exam Physical Exam: Gen: WD/WN, NAD, A&O x3 HEENT: Normocephalic, atraumatic, conjunctivae moist, sclerae anicteric, mucous membranes moist. Lung: Clear to Auscultation bilaterally, no wheezes/rales/rhonchi Heart: Regular rate, regular rhythm, no murmurs, rubs, or gallops Abdomen: Soft, NT, ND +BS x 4 Extremities: No edema Skin: Warm, no rash, negative turgor. Results & Data Results & Data Vital Signs (Past 12 Hours) Vital Signs Temp Pulse Resp BP Pulse Ox O2 Del Method 12/18/22 11:49 36.8 C 70 20 111/74 97 Room Air 12/18/22 07:30 Room Air 12/18/22 07:00 36.8 C 78 18 111/71 97 Room Air Laboratory Results Short CBC 12/18/22 Range/Units 06:13 WBC 9.55 (4.8-10.8) K/ul Hgb 14.0 (12.0-16.0) g/dl Hct 41.7 (37.0-47.0) % Plt Count 266 (130-400) K/uL BMP 12/18/22 06:13 Sodium 136 Potassium 4.3 D Chloride 102 Carbon Dioxide 25 BUN 10 Creatinine 0.90 Glucose 146 H Calcium 8.9 Urine 12/17/22 Range/Units 14:55 Urine Color Yellow Urine Appearance Clear (Clear) Urine pH 7.5 (4.5-7.5) Ur Specific [place] 1.003 (1.000-1.030) Urine Protein Negative (Negative) Urine Glucose (UA) Negative (Negative) Medications Administered Current Inpatient Medications Acetaminophen (Acetaminophen 325 Mg Tab) 650 mg PO Q4H PRN PRN Reason: pain/fever Stop: 01/16/23 21:32 Last Admin: 12/18/22 11:29 Dose: 650 mg Albuterol (Albuterol Hfa 8 Gm Inhaler) 2 puffs INH Q6H PRN PRN Reason: Shortness Of Breath Or Wheezin Stop: 01/16/23 21:32 Amphetamine/Dextroamphetamine (Amphetamine Asp/Sulf/Dextramph 10 Mg Tab) 10 mg PO DAILY PRN PRN Reason: Other Stop: 12/31/22 21:38 Bupropion HCl (Bupropion Xl 150 Mg Tabcr) [address] [facility] [place] Stop: 01/17/23 08:59 Last Admin: 12/18/22 08:32 Dose: 150 mg Diphenhydramine HCl (Diphenhydramine Capsule 25 Mg Cap) 25 mg PO Q6H PRN PRN Reason: itching Stop: 01/17/23 13:07 Escitalopram Oxalate (Escitalopram Oxalate 10 Mg Tab) [address] [facility] [place] Stop: 01/17/23 08:59 Last Admin: 12/18/22 08:32 Dose: 5 mg Glycerin (Glycerin Adult 12 Supp/Box Supp) 1 supp AK DAILY PRN PRN Reason: Constipation Stop: 01/16/23 19:49 Lactulose (Lactulose Syrup 20 Gm/30 Ml Udc) 20 gm PO BID [facility] Stop: 01/16/23 20:59 Last Admin: 12/18/22 08:31 Dose: 20 gm Levothyroxine Sodium (Levothyroxine Sodium 88 Mcg Tablet) 88 mcg PO DAILYBB [facility] Stop: 01/17/23 06:29 Last Admin: 12/18/22 06:41 Dose: 88 mcg Lisdexamfetamine Dimesylate (Vyvanse 30 Mg Capsule (Pom)) 1 each PO DAILY [facility] Stop: 01/17/23 12:59 Morphine Sulfate (Morphine Sulfate 2 Mg/Ml Carp) 2 mg IV Q4 PRN PRN Reason: Pain Stop: 12/31/22 19:49 Patient's Own Controlled Med 2 ( Vyvanse 30 Mg Capsule) 1 each PO DAILY [facility] Stop: 01/01/23 12:59 Last Admin: 12/18/22 14:24 Dose: Not Given Oxycodone HCl (Oxycodone Hcl Ir 5 Mg Tab (Immediate Release)) 5 mg PO Q6H PRN PRN Reason: Moderate Pain (Scale 4, 5, 6) Stop: 01/01/23 04:31 Last Admin: 12/18/22 12:41 Dose: 5 mg Pantoprazole Sodium (Pantoprazole 40 Mg Tab) 40 mg PO DAILY [facility] Stop: 01/17/23 08:59 Last Admin: 12/18/22 08:32 Dose: 40 mg Prednisone (Prednisone 10 Mg Tablet) 30 mg PO BID NNAMDI Stop: 01/17/23 08:59 Last Admin: 12/18/22 08:31 Dose: 30 mg Senna/Docusate Sodium (Docusate Sodium/Senna 50/8.6mg Tab) 1 tab PO BID [facility] Stop: 01/17/23 13:14 Sumatriptan Succinate (Sumatriptan Succinate 100 Mg Tab) 100 mg PO DAILY PRN PRN Reason: Migraine Headache Stop: 01/16/23 21:32
--- NOTE | 2022-12-18 17:35 | Electrocardiogram Report ---
Test Reason : Blood Pressure : / mmHG Vent. Rate : 081 BPM Atrial Rate : 081 BPM P-R Int : 138 ms QRS Dur : 066 ms QT Int : 386 ms P-R-T Axes : 076 065 052 degrees QTc Int : 448 ms Normal sinus rhythm Possible Left atrial enlargement T wave abnormality, consider anterior ischemia Abnormal ECG When compared with ECG of 23-NOV-2022 02:11, No significant change was found Confirmed by Allan Martinez ([id number]) on 12/18/2022 5:35:39 PM Referred By: SELF Confirmed By:Bradley Martinez
--- NOTE | 2022-12-18 17:41 | Rheumatology Consultation ---
Rheumatology Consultation DOS December 18, [address] Solomon Reason for Consultation Abnormal CT scan concerning for renal artery vasculitis Assessment & Plan (1) Vasculitis involving renal artery: This patient notes being in her usual state of health until 4 days prior to admission. Classically with a systemic vasculitis, patient's have significant constitutional symptoms including fevers, fatigue, weakness, etc. that will be present for several weeks. She had URI symptoms requiring intermittent doses of steroids and antibiotics since late October but beyond that, she has been doing well. 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 The additional mesenteric and vascular distribution obtained via the CT angiogram did not show additional lesions. In addition, this patient does not have mononeuritis multiplex, she has not had an acute change with her BUN/creatinine, and she has not had an acute blood pressure change. In addition, she has not had weight loss. She does not have any additional cutaneous features to suggest medium vessel ischemic and vasculitic change elsewhere. At this time, I do not feel that she needs cyclophosphamide, rituximab, or additional systemic immunosuppressive therapies beyond her current dose of prednisone. Prednisone was initiated through discussions with vascular surgery yesterday. Recommend continuing at current dose for 1 week, then reduce to 40 mg daily. I will see the patient in follow-up next week and at that time, I will be able to help facilitate further recommendations regarding prednisone dosing. Recommend consideration for fibromuscular dysplasia as an etiology for the focused lesion. This patient will need outpatient follow-up with vascular to further assess current imaging and to follow-up on next steps regarding monitoring and of the current abnormality. She will remain on prednisone while pursuing these evaluations. FRANCISCO, ANCA, and other testing is pending and will take several days to return. This patient does not need to stay in the hospital to await these lab tests. She recalls having a positive FRANCISCO in the past. Currently, I do not identify additional features to support a diagnosis of systemic lupus erythematosus. Also, no hematuria/proteinuria and no additional respiratory symptoms to suggest an ANCA associated vasculitis currently. Recommend following up with me in the office next week. When ready for hospital discharge, please contact my office to help facilitate an appointment. Thank you for this consultation. Please feel free to contact me with any questions or concerns. Portions of this note were generated with [email or web address] voice recognition software. History of Present Illness Attending Physician: Areli Méndez MD History of Present Illness This is a 42-year-old woman who was in her usual state of health until 4 days ago when she began developing back pain and increased urination. She describes the pain in her lower back in the flank area. It seemed to be generalized in the bilateral region and then specifically settled into the right side. She was evaluated by her primary care provider and x-rays and urinalysis were completed. UA, per patient, did not show evidence of infection and x-ray showed fragments of stones on the left side. X-rays also showed changes consistent with constipation. PCP recommended a bowel regimen but unfortunately, the patient did not get her bowels moving and the pain became worse prompting presentation to the ER on 12/17/2022. CT of the abdomen pelvis showed abnormal renal artery with surrounding inflammation and apparent focal narrowing of the vessel with an intraluminal filling defect questioned on the reformatted images. Report mentions that a dissection could have this appearance and hemorrhage around the vessel was not excluded. Correlation with CT angiogram was recommended. CT angiogram showed inflammation around the right renal artery which has an irregular/beaded appearance. The right renal artery is patent. The patient had episodes of pulmonary infection beginning in late October. She received 3 rounds of steroids and finished her last steroid regimen about a week ago. She also received antibiotics periodically. She denies skin rashes. Denies cough. Denies hemoptysis. Has had some slight dry eyes recently. Denies any weight changes putting weight loss. Denies recent fevers although 2 weeks ago she had fever/chills sensation for about 2 days. She denies photosensitive rashes. Denies history of thromboembolic events. Denies skin tightening or skin thickening. Denies history of miscarriages. Denies history consistent with Raynaud's. She denies new medications recently prior to this presentation. Allergies Allergy/AdvReac Type Severity Reaction Status Date / Time hydromorphone AdvReac Intermediate hallucinati Verified 11/23/22 02:51 ons Home Medications Medication Instructions Recorded Confirmed Type levothyroxine 88 mcg tablet 88 mcg PO DAILY 09/01/19 12/17/22 History sumatriptan succinate 100 mg 100 mg PO DIRECTED PRN Migraine 09/01/19 12/17/22 History tablet (Imitrex) Headache albuterol sulfate 90 mcg/actuation 2 puff inhalation DIRECTED PRN 11/23/22 12/17/22 History aerosol inhaler Shortness Of Breath Or Wheezing bupropion HCl 150 mg 24 hr tablet, 150 mg PO QAM 11/23/22 12/17/22 History extended release escitalopram oxalate 5 mg tablet 5 mg PO QAM 11/23/22 12/17/22 History lisdexamfetamine 40 mg capsule 40 mg PO DAILY 11/23/22 12/17/22 History (Vyvanse) dextroamphetamine-amphetamine 10 10 mg PO DAILY PRN Other 12/17/22 12/17/22 History mg tablet Patient History Medical History (Updated 12/18/22 @ 14:29 by Dione Putnam PA-C) H/O ovarian cancer Hypothyroidism Migraine No pertinent past medical history Pancreatitis Surgical History (Updated 12/18/22 @ 14:29 by Dione Putnam PA-C) History of appendectomy History of cholecystectomy History of hysterectomy Social History Smoking Status: Never smoker Hx Alcohol Use: Yes Alcohol type: wine Hx Substance Use: No Preferred Language: Bahraini Communication Ability: Effective Ironer Machine Required: No Beliefs That Will Affect Care: None Current Living Situation: Family Current Living Situation Comment: Spouse, 3 children Other Information That Helps Us Care for You: No Feels Safe at Home: Yes Safety Concerns: Feels Safe At This Time and Afraid for Self Assistive Devices: None Review of Systems Review of Systems: Denies fevers or chills although 2 weeks ago had episode lasting about 2 days. No chest pain or shortness of breath. Denies hemoptysis. Denies cough. Denies history consistent with uveitis. She has had constipation recently. Denies nausea or vomiting. Denies numbness or tingling to the hands or feet. Denies focal weakness to the arms or legs. Physical Exam Physical Exam: General: Alert and oriented. No acute distress Eyes: Pupils are equal. Extraocular muscles intact. Mouth: No oral sores Neck: Supple, no adenopathy Cardiovascular: Heart regular, no rubs Pulmonary: Clear to auscultation bilaterally Abdomen: Soft, nontender. Positive bowel sounds. Extremities: No pitting edema noted Skin: No purpuric lesions identified. No distal fingertip ischemic changes identified. Musculoskeletal: No synovitis. No effusions. Neuro: Skin sensation intact bilateral upper and lower extremities. Muscle str ength intact Results & Data Vital Signs (Past 12 Hours) Vital Signs Temp Pulse Pulse Resp BP Pulse Ox O2 Del Method 12/18/22 15:38 36.8 C 92 H 20 120/73 96 Room Air 12/18/22 11:49 36.8 C 70 20 111/74 97 Room Air 12/18/22 07:30 Room Air 12/18/22 07:00 36.8 C 78 18 111/71 97 Room Air Laboratory Results Chest x-ray, 11/23/[address] of abdomen and pelvis, 12/17/2022: FINDINGS: Lung bases: The heart is normal in size and without pericardial effusion. The lung bases are clear. Liver: The contrast-enhanced liver is normal in size, contour, and attenuation. There is no intrahepatic biliary ductal dilatation. The hepatic veins and portal veins are patent. Gallbladder: Surgically absent noting clips in the gallbladder fossa. Spleen: Normal in size and attenuation. Pancreas: Unremarkable. Adrenal glands: Unremarkable. Kidneys: The contrast enhanced kidneys are normal in size and without hydronephrosis. There is inflammation identified around the right renal artery, best seen on axial image #110. There is apparent focal narrowing of the renal artery. An intraluminal filling defect is questioned on the reformatted images, and a dissection is not excluded. The right kidney enhances normally. There is a 3 mm nonobstructing left renal calculus. No ureteral stone is identified Abdominal vasculature: The abdominal aorta is normal in course and caliber. Bowel: There is mild to moderate colonic fecal retention. No bowel obstruction is seen. The cecum is located in the pelvis. The appendix is not identified and reported surgically absent. Peritoneum: There is no intraperitoneal free air or abdominal ascites. There is a fat-containing umbilical hernia. Lymphadenopathy: None. Pelvic viscera: The bladder is normal as visualized. The uterus is surgically absent. No adnexal lesion is seen. Skeletal structures: No lytic or blastic lesions are seen. IMPRESSION: 1. Abnormal right renal artery with surrounding inflammation and apparent focal narrowing of the vessel. An intraluminal filling defect is questioned on the reformatted images and a dissection could have this appearance. Hemorrhage around the vessel is not excluded. Correlation with a CT angiogram of the abdomen is recommended for further assessment. 2. The right kidney enhances normally. 3. Left-sided nephrolithiasis. 4. Additional findings as above. CT angiogram abdomen/pelvis, 12/17/2022: FINDINGS: Lower chest: The heart is normal in size and without pericardial effusion. The lung bases are clear noting mild dependent atelectasis. Liver: The contrast-enhanced liver is normal in size, contour, and attenuation. There is no intrahepatic biliary ductal dilatation. The main portal vein is patent. Gallbladder: Surgically absent noting clips in the gallbladder fossa. Spleen: Normal in size and attenuation noting heterogeneous arterial phase enhancement. Pancreas: Unremarkable. Adrenal glands: Unremarkable. Kidneys: The contrast enhanced kidneys are normal in size and without hydronephrosis. Excreted IV contrast fills the renal collecting systems. The kidneys enhance symmetrically. Abdominal aorta and iliac arteries: The abdominal aorta is normal in course and caliber. The iliac arteries are widely patent bilaterally. Major branches of the abdominal aorta: The celiac trunk, superior mesenteric, and inferior mesenteric arteries are widely patent. Hepatic arterial anatomy is conventional. The splenic artery is patent. There is a single right renal artery and 2 left renal arteries. The left renal arteries are widely patent. The Main right renal artery is widely patent. No dissection is seen. There is inflammation identified around the right renal artery, and the vessel has an irregular/beaded appearance. There is mild narrowing of an inferior segmental right renal artery branch seen on axial image #127. Bowel: Mild/moderate fecal retention is seen throughout the colon. No bowel obstruction is identified. The appendix is not identified and reported surgically absent. Peritoneum: There is no intraperitoneal free air or abdominal ascites. Lymphadenopathy: None. Pelvic viscera: The bladder is normal as visualized, and filled with excreted IV contrast. The uterus is surgically absent. No adnexal lesion is seen. Skeletal structures: No destructive bony lesions are seen. IMPRESSION: 1. Again seen is inflammation around the right renal artery which has an irregular/beaded appearance. This represent a significant change from the 01/10/2018 examination and the appearance favors a vasculitis. Clinical correlation will be essential. 2. The right renal artery is patent and there is normal contrast-enhancement of the right kidney. No dissection is seen. 3. Otherwise normal CT angiogram of the abdominal aorta and its major branches. No additional similar appearing foci of perivascular inflammation are identified. 4. Additional findings as above. Results Urinalysis: Urine Color Yellow 12/17/22 Urine Appearance Clear (Clear) 12/17/22 Urine pH 7.5 (4.5-7.5) 12/17/22 Ur Specific [place] 1.003 (1.000-1.030) 12/17/22 Urine Protein Negative (Negative) 12/17/22 Urine Glucose (UA) Negative (Negative) 12/17/22 Urine Ketones Negative (Negative) 12/17/22 Urine Blood Negative (Negative) 12/17/22 Urine Nitrite Negative (Negative) 12/17/22 Urine Bilirubin Negative (Negative) 12/17/22 Urine Urobilinogen Negative (Negative) 12/17/22 Ur Leukocyte Esterase Negative (Negative) 12/17/22 Urine WBC (Auto) 1-5 /hpf (0-5) 09/01/19 Urine RBC (Auto) 0-4 /hpf (0-4) 09/01/19 Urine Hyaline Casts (Auto) 1-5 /lpf (0-5) 09/01/19 Urine Epithelial Cells (Auto) >30 /lpf (0-5) H 09/01/19 Urine Bacteria (Auto) Negative (Negative) 09/01/19 Urine Culture: No Data to Display Results Rheum Results - ESR: ESR 24 mm/hr (0-20) H 12/17/22 13:16 Results Rheum Results - CRP: CRP < 0.50 mg/dl (0-0.5) 12/17/22 13:16 Results CMP Results: Na 136 mmol/L (136-145) 12/18/22 K 4.3 mmol/L (3.5-5.1) 12/18/22 Cl 102 mmol/L (98-107) 12/18/22 CO2 25 mmol/L (21-32) 12/18/22 Anion Gap 9 (3-11) 12/18/22 BUN 10 mg/dl (6-23) 12/18/22 Creatinine 0.90 mg/dl (0.6-1.2) 12/18/22 Estimated GFR ( Amer) 90.8 ml/min 12/18/22 Estimated GFR (Non-Af Amer) 78.3 ml/min 12/18/22 BUN/Creatinine Ratio 11.1 (10-20) 12/18/22 Glu 146 mg/dl (70-99(Fasting)) H 12/18/22 Ca 8.9 mg/dl (8.6-10.3) 12/18/22 Total Bilirubin 0.4 mg/dl (0.2-1.0) 12/17/22 AST 17 U/L (13-39) 12/17/22 ALT 12 U/L (7-52) 12/17/22 Alkaline Phosphatase 73 U/L (34-104) 12/17/22 TP 7.1 gm/dl (6.0-8.3) 12/17/22 Albumin 4.3 gm/dl (3.4-5.0) 12/17/22 Globulin 2.8 gm/dl (2.5-4.0) 12/17/22 Albumin/Globulin Ratio 1.5 (0.9-2) 12/17/22 PG Care Time/CCT Total # of Minutes Spent Total Time Spent with Patient: Total time spent is greater than 50% in coordination of care (as documented) at patient's floor/unit and/or counseling patient: Coding Level of Care Code 10957 INT INP/OBS CARE 2/55MIN Diagnoses Vasculitis involving renal artery I77.6
[2022-12-18] MEDS: DOCUSATE SODIUM/SENNA 50/8.6MG TAB PO SCH (19:52)
[2022-12-19 06:35] LABS: Hematocrit (blood only) 39.8 % (37.0-47.0); Hemoglobin 13.4 g/dl (12.0-16.0); Mean Corpuscular Hemoglobin 28.7 pg (25.0-34.0); Mean Corpuscular Hgb Conc 33.7 g/dL (32.0-36.0); Mean Corpuscular Volume 85.2 fL (80.0-100.0); Mean Platelet Volume 11.1 fL (9.4-12.4); Platelet Count 284 K/uL (130-400); RDW Coefficient of Variation 13.2 % (11.5-14.5); RDW Standard Deviation 40.5 fL (36.4-46.3); Red Blood Count 4.67 M/uL (4.20-5.40); White Blood Count 18.61 K/ul (4.8-10.8)
[2022-12-19 06:46] LABS: BUN Creatinine Ratio 14.1 (10-20); Calcium 8.9 mg/dl (8.6-10.3); Creatinine Clr Calc Pharmacy 76.7 ml/min; Est GFR (African American) 88.4 ml/min; Est GFR (Non-African American) 76.3 ml/min; Potassium 4.5 mmol/L (3.5-5.1)
[2022-12-19] MEDS ORDERED: VYVANSE 30 MG PO SCH (09:00)
[2022-12-19] MEDS: DOCUSATE SODIUM/SENNA 50/8.6MG TAB PO SCH (09:12)
[2022-12-19] MEDS: buPROPion XL 150 MG TABCR PO SCH (09:12)
[2022-12-19] MEDS: predniSONE 10 MG TABLET PO SCH (09:12)
[2022-12-19] MEDS: PANTOprazole 40 MG TAB PO SCH (09:13)
[2022-12-19] MEDS: LACTULOSE SYRUP 20 GM/30 ML UDC PO SCH (09:13)
[2022-12-19] MEDS: ESCITALOPRAM OXALATE 10 MG TAB PO SCH (09:13)
[2022-12-19] MEDS: LISDEXAMFETAMINE PO SCH (09:17)
[2022-12-19] MEDS: LEVOTHYROXINE SODIUM 88 MCG TABLET PO SCH (09:22)
[2022-12-19 09:37] LABS: HBSAG NON-REACTIVE (NON-REACTIVE); Hepatitis A Antibody IgM NON-REACTIVE (NON-REACTIVE); Hepatitis B Core Antibody IgM NON-REACTIVE (NON-REACTIVE)
--- NOTE | 2022-12-19 10:30 | XRay Report ---
KUB HISTORY: Acute generalized abdominal pain with reported constipation constipation COMPARISON: CT abdomen and pelvis 12/17/2022 FINDINGS: Cholecystectomy. Moderate fecal retention is most pronounced within the right hemicolon. Re nal shadows are obscured by bowel gas. No renal calculi. No ureteral calculi. No pneumoperitoneum or pneumatosis. No fracture. IMPRESSION: 1. Nonobstructive bowel gas pattern. 2. Moderate fecal retention of the right hemicolon. 3. Cholecystectomy. ACT 112: Negative or not required by law. The above report was generated using voice recognition software. It may contain grammatical, syntax o r spelling errors. Electronically signed by: Elijah Castro M.D. 12/19/2022 10:28 AM
--- NOTE | 2022-12-19 11:26 | Discharge Summary ---
Discharge Summary Date of Service December 19, 2022 Notes For Next Care Provider Medication Changes From Visit Prednisone 30 mg twice daily for another week. After you complete above prednisone, then begin taking prednisone 40 mg daily as directed by rheumatology. Recommend taking Senna-S 1 capsule twice daily until bowel movement. MiraLAX 17 g capful mixed with 8 ounces of water twice daily. Admission HPI Per Admitting Provider Ms Nova Holder is a 42 year old female with history of ovarian cancer status post hysterectomy 10 years ago, mild persistent asthma, hypothyroidism, idiopathic chronic pancreatitis, migraine presents today with right flank pain for past several days. She saw her PCP in the office for this 3 days ago and had a urinalysis/urine culture and X ray of her abdomen. X ray of her abdomen showed stool impaction throughout the cecum, proximal ascending colon as well as descending colon and a few punctate non obstructive left kidney stone. Her pain persists so she came to the ER today. She had a CT A/P here which showed right renal artery inflammation so she had a follow up CTA Abd/pelvis which showed renal artery vasculitis. Case was discussed by ER provider with vascular surgery at [facility] [place] and it was recommended that she have a rheumatologic workup, initiation of steroids and can follow up with them in the office. Patient denies fever/chills, no muscle aches, no joint pain or swelling, no weight loss, no chest pain, no dysuria or difficulty urinating, no dysphagia or difficulty swallowing She is having severe constipation for the past 1 month which has worsened in past several days. She has tried miralax, colace, enema and suppositories with little relieve. Had 1 small hard BM a couple days ago. In the past several months, she has received several rounds of steroids for "bronchitis" but currently does not have cough or shortness of breath ER course- solumedrol 125mg IV, morphine 4mg IV x 2, zofran 4mg, NSS 1L FHx- Zaira's (mother) PSHx- hysterectomy, cholecystectomy Admission Exam Per Admitting Provider Physical Exam Physical Exam: Appears stated age, well, no acute distress ENMT: normocephalic, atraumatic, mucous membrane moist Respiratory: breathing comfortably on room air, no wheezing/rhonchi/rales Cardiovascular: regular rate and rhythm, no murmurs/rubs/gallops Gastrointestinal (Abdomen): soft, non tender, non distended Musculoskeletal: no joint swelling, no leg swelling, no cyanosis or clubbing Skin: no rash, no ulcer, no bruising noted on extremities Neurologic: awake, alert, spontaneously moving extremities Psychiatric: affect normal, speech linear, non pressured Principal Dx & Hospital Course #1 = Principal Diagnosis (1) Vasculitis involving renal artery: This is a 42-year-old female who has a significant past medical history of ovarian cancer, idiopathic chronic pancreatitis, hypothyroidism and mild persistent asthma who presents to ED on 12/17/2022 secondary to right flank pain. Imaging at ED concerning for right renal artery vasculitis. Initial CT of abdomen and pelvis shows inflammation around the right renal artery which has an irregular/beaded appearance. This represent a significant change from the 01/10/2018 examination and the appearance favors a vasculitis. Clinical correla tion will be essential.2. The right renal artery is patent and there is normal contrast-enhancement of the right kidney. No dissection is seen.. Otherwise normal CT angiogram of the abdominal aorta and its major branches. No additional similar appearing foci of perivascular inflammation are identified. She was started on prednisone 30 mg twice daily. Her ESR was elevated at 28 and CRP was negative. Her hepatitis panel was negative and on discharge FRANCISCO, ANCA and cryoglobulins still pending. She was seen and evaluated by rheumatology who is not entirely convinced this is a vasculitis picture as she had no prodromal symptoms and otherwise feels well despite right flank pain. Given abnormality on CT angio rheumatology recommends follow-up with vascular at discharge and this will be arranged by primary care provider. She will follow-up with rheumatology in 1 week. She will continue prednisone 30 mg twice daily for 1 week and then transition to 40 mg daily as directed by rheumatology. She is suffering from moderate constipation and I feel this is likely why she is having right-sided flank pain. She has not had a bowel movement in 5 days and is currently on a good bowel regimen. She is tolerating diet and denies any isai abdominal pain or nausea or vomiting. KUB done day of discharge shows nonobstructive bowel gas pattern with moderate stool in the right hemicolon. On day of discharge she was hemodynamically stable and in good spirits. All questions were answered and she has no other further concerns. She was educated on her current condition and appropriate follow-up. (2) Acute right flank pain: (3) Migraine: (4) Hypothyroidism: (5) H/O ovarian cancer: (6) DVT prophylaxis: Discharge Exam Gen: WD/WN, NAD, A&O x3 HEENT: Normocephalic, atraumatic, conjunctivae moist, sclerae anicteric, mucous membranes moist. Lung: Clear to Auscultation bilaterally, no wheezes/rales/rhonchi Heart: Regular rate, regular rhythm, no murmurs, rubs, or gallops Abdomen: Soft, NT, ND +BS x 4 Extremities: No edema Skin: Warm, no rash, negative turgor. Updated Medication List Medication Instructions Recorded Confirmed Type levothyroxine 88 mcg tablet 88 mcg PO DAILY 09/01/19 12/17/22 History sumatriptan succinate 100 mg 100 mg PO DIRECTED PRN Migraine 09/01/19 12/17/22 History tablet (Imitrex) Headache albuterol sulfate 90 mcg/actuation 2 puff inhalation DIRECTED PRN 11/23/22 12/17/22 History aerosol inhaler Shortness Of Breath Or Wheezing bupropion HCl 150 mg 24 hr tablet, 150 mg PO QAM 11/23/22 12/17/22 History extended release escitalopram oxalate 5 mg tablet 5 mg PO QAM 11/23/22 12/17/22 History lisdexamfetamine 40 mg capsule 40 mg PO DAILY 11/23/22 12/17/22 History (Vyvanse) dextroamphetamine-amphetamine 10 10 mg PO DAILY PRN Other 12/17/22 12/17/22 History mg tablet oxycodone 5 mg tablet 5 mg PO Q6H PRN pain #5 tabs 12/19/22 Rx prednisone 10 mg tablet 30 mg PO BID 7 days #42 tabs 12/19/22 Rx prednisone 20 mg tablet 40 mg PO DAILY #30 tabs 12/19/22 Rx sennosides 8.6 mg-docusate sodium 1 tab PO BID #30 tabs 12/19/22 Rx 50 mg tablet (Senokot-S) Hospital Stay Data Consultations 12/17/22 18:39 ED Decision to Admit Stat 12/17/22 19:33 Consult Rheumatology Routine Diagnostic Imagining Performed Abdomen/Pelvis CT 12/17/22 13:20 CT SCAN OF THE ABDOMEN AND PELVIS WITH IV CONTRAST CLINICAL HISTORY: Right flank pain. COMPARISON STUDY: Abdominal CT dated 01/10/2018. TECHNIQUE: Following the IV administration of 86 cc of Optiray 350, CT scan of the abdomen and pelvis is performed from the lung bases to the proximal femora. Images are reviewed in the axial, sagittal, and coronal planes. IV contrast was administered without complication. A dose lowering technique was utilized adhering to the principles of ALARA. CT DOSE: 320.25 mGy.cm FINDINGS: Lung bases: The heart is normal in size and without pericardial effusion. The lung bases are clear. Liver: The contrast-enhanced liver is normal in size, contour, and attenuation. There is no intrahepatic biliary ductal dilatation. The hepatic veins and portal veins are patent. Gallbladder: Surgically absent noting clips in the gallbladder fossa. Spleen: Normal in size and attenuation. Pancreas: Unremarkable. Adrenal glands: Unremarkable. Kidneys: The contrast enhanced kidneys are normal in size and without hydronephrosis. There is inflammation identified around the right renal artery, best seen on axial image #110. There is apparent focal narrowing of the renal artery. An intraluminal filling defect is questioned on the reformatted images, and a dissection is not excluded. The right kidney enhances normally. There is a 3 mm nonobstructing left renal calculus. No ureteral stone is identified Abdominal vasculature: The abdominal aorta is normal in course and caliber. Bowel: There is mild to moderate colonic fecal retention. No bowel obstruction is seen. The cecum is located in the pelvis. The appendix is not identified and reported surgically absent. Peritoneum: There is no intraperitoneal free air or abdominal ascites. There is a fat-containing umbilical hernia. Lymphadenopathy: None. Pelvic viscera: The bladder is normal as visualized. The uterus is surgically absent. No adnexal lesion is seen. Skeletal structures: No lytic or blastic lesions are seen. IMPRESSION: 1. Abnormal right renal artery with surrounding inflammation and apparent focal narrowing of the vessel. An intraluminal filling defect is questioned on the reformatted images and a dissection could have this appearance. Hemorrhage around the vessel is not excluded. Correlation with a CT angiogram of the abdomen is recommended for further assessment. 2. The right kidney enhances normally. 3. Left-sided nephrolithiasis. 4. Additional findings as above. ACT 112: Negative or not required by law. Electronically signed by: Magdy Hdz M.D. 12/17/2022 3:16 PM Abdomen/Pelvis CTA 12/17/22 15:26 CT ANGIOGRAM OF THE ABDOMEN AND PELVIS CLINICAL HISTORY: Abnormal right renal artery. Right flank pain COMPARISON STUDY: Abdominal CT scan performed earlier the same day 12/17/2022. TECHNIQUE: Following the IV administration of 111 cc of Optiray 320, CT angiogram of the abdomen and pelvis was performed from the lung bases the proximal femora. Images are reviewed in the axial, sagittal, and coronal planes. 3-D MIPS images are created and assessed. IV contrast was administered without complication. A dose lowering technique was utilized adhering to the principles of ALARA. CT DOSE: 355.88 mGy.cm FINDINGS: Lower chest: The heart is normal in size and without pericardial effusion. The lung bases are clear noting mild dependent atelectasis. Liver: The contrast-enhanced liver is normal in size, contour, and attenuation. There is no intrahepatic biliary ductal dilatation. The main portal vein is patent. Gallbladder: Surgically absent noting clips in the gallbladder fossa. Spleen: Normal in size and attenuation noting heterogeneous arterial phase enhancement. Pancreas: Unremarkable. Adrenal glands: Unremarkable. Kidneys: The contrast enhanced kidneys are normal in size and without hydronephrosis. Excreted IV contrast fills the renal collecting systems. The kidneys enhance symmetrically. Abdominal aorta and iliac arteries: The abdominal aorta is normal in course and caliber. The iliac arteries are widely patent bilaterally. Major branches of the abdominal aorta: The celiac trunk, superior mesenteric, and inferior mesenteric arteries are widely patent. Hepatic arterial anatomy is conventional. The splenic artery is patent. There is a single right renal artery and 2 left renal arteries. The left renal arteries are widely patent. The Main right renal artery is widely patent. No dissection is seen. There is inf lammation identified around the right renal artery, and the vessel has an irregular/beaded appearance. There is mild narrowing of an inferior segmental right renal artery branch seen on axial image #127. Bowel: Mild/moderate fecal retention is seen throughout the colon. No bowel obstruction is identified. The appendix is not identified and reported surgically absent. Peritoneum: There is no intraperitoneal free air or abdominal ascites. Lymphadenopathy: None. Pelvic viscera: The bladder is normal as visualized, and filled with excreted IV contrast. The uterus is surgically absent. No adnexal lesion is seen. Skeletal structures: No destructive bony lesions are seen. IMPRESSION: 1. Again seen is inflammation around the right renal artery which has an irregular/beaded appearance. This represent a significant change from the 01/10/2018 examination and the appearance favors a vasculitis. Clinical correlation will be essential. 2. The right renal artery is patent and there is normal contrast-enhancement of the right kidney. No dissection is seen. 3. Otherwise normal CT angiogram of the abdominal aorta and its major branches. No additional similar appearing foci of perivascular inflammation are identified. 4. Additional findings as above. ACT 112: Negative or not required by law. Electronically signed by: Magdy Hdz M.D. 12/17/2022 4:25 PM KUB X-Ray 12/19/22 09:30 KUB HISTORY: Acute generalized abdominal pain with reported constipation constipation COMPARISON: CT abdomen and pelvis 12/17/2022 FINDINGS: Cholecystectomy. Moderate fecal retention is most pronounced within the right hemicolon. Renal shadows are obscured by bowel gas. No renal calculi. No ureteral calculi. No pneumoperitoneum or pneumatosis. No fracture. IMPRESSION: 1. Nonobstructive bowel gas pattern. 2. Moderate fecal retention of the right hemicolon. 3. Cholecystectomy. ACT 112: Negative or not required by law. The above report was generated using voice recognition software. It may contain grammatical, syntax or spelling errors. Electronically signed by: Elijah Castro M.D. 12/19/2022 10:28 AM Pending Results Patient Have Any Pending Studies at Discharge: Yes Discharge Instructions Given to Patient (Per Discharging Provider) MEDICATION CHANGES: Prednisone 30 mg twice daily for 1 week. After you complete above prednisone, then begin taking prednisone 40 mg daily as directed by rheumatology. Recommend taking Senna-S 1 capsule twice daily until bowel movement. MiraLAX 17 g capful mixed with 8 ounces of water twice daily. SUMMARY OF TEST RESULTS: You were admitted to hospital secondary to abnormal finding on imaging which was concerning for possible vasculitis of right renal artery. You underwent lab work-up for vasculitis which is still pending. You were seen and evaluated by rheumatology who recommended continuing prednisone therapy. You will follow-up with rheumatology in 1 week as outpatient. You will also need follow-up with vascular as outpatient regarding right renal artery. PENDING TEST RESULTS: Lab work pending for vasculitis work up including FRANCISCO, ANCA, Cryoglobulin Hepatitis panel was negative RECOMMENDATIONS FOR FOLLOW-UP: Please follow-up with primary care provider as scheduled. You will need to follow-up with rheumatology in 1 week. Continue prednisone as prescribed. You will need a referral to vascular for further evaluation of right renal artery. Your primary care provider can do this. Recommend continuing to take stool softeners and laxatives along with increased fluid intake to promote daily bowel habits. OTHER INSTRUCTIONS: Seek medical attention if you have: * temperature above 101 * chest pain or trouble breathing * abdominal pain, nausea, vomiting * diarrhea, dark stools or bloody stools * any unanswered questions or concerns Call 911 if symptoms are severe. Please take good care of yourself. It has been a pleasure taking care of you. Please take care of yourself. If you have any questions regarding your recent hospitalization please contact [facility] and [facility] @ [phone]. Dione Putnam PA-C Total Time Total Time Spent Total Time Spent (In Minutes): 45 minutes Supervising Physician Co-Signing Physician Notes Attending addendum: Patient was seen and examined in medical floor She has been stable with minimal abdominal pain Bowels moved but she is still worried about constipation KUB did not show any obstruction or distention of the abdomen On examination No apparent distress at rest Hemodynamically stable Labs are unremarkable and is still waiting few of the blood test to come back Her labs and imaging studies and medications reviewed She has nonspecific vasculitis awaiting further investigation Agree with assessment plan as outlined above by Margot albert
== END 2022-12-19 13:18 | disposition home or self-care (01) | DRG 300 ==
LOC: ED 12:58 → 3W 19:37 → SUATTDRO 19:37 → 3W 20:45